=== PATIENT | female | born 1960 | race African-American/Black ===

== ENCOUNTER 2020-05-22 10:00 | Outpatient (RCR) | payer MEDICAID, SELFPAY ==
[2020-04-19 10:01] VITALS: BP 141/66; PULSE 72
== END 2020-07-11 14:54 | disposition other institution (70) ==
LOC: HO.PT 10:00
PROVIDERS: PCP Internal Medicine; Visit Provider Internal Medicine
DX: R42 Dizziness and giddiness (principal)
CPT/HCPCS: 95992; 97162; 97530

== ENCOUNTER 2021-02-05 10:57 | Outpatient (REF) | payer MEDICAID, SELFPAY ==
--- NOTE | ~2021-02-05 | MM_ITS ---
EXAMINATION: MM SCREENING DIGITAL BREAST TOMOSYNTHESIS, BILATERAL CLINICAL INFORMATION: Screening. Asymptomatic. The lifetime risk of breast cancer based on the Tyrer-Cuzick Model is 3%. COMPARISON: Mammography: 06/22/2018, 03/11/2017 TECHNIQUE: Digital breast tomosynthesis is performed in both the craniocaudal and mediolateral oblique views along with computer-aided detection (CAD). Synthesized 2D images are generated from the tomosynthesis. Additional right CC view is provided. FINDINGS: There are scattered areas of fibroglandular density (ACR BI-RADS breast composition Category b). There are no significant masses, abnormal calcifications, or other abnormalities. Parenchymal pattern is similar to prior studies. Minor fibronodular pattern and anterior left breast is stable. There are bilateral vascular and some scattered punctate calcifications again seen. The axilla and skin contours are unremarkable. MM/MM tomosynthesis screening BI IMPRESSION: No mammographic evidence of malignancy. ASSESSMENT: BI-RADS 2: Benign RECOMMENDATION: Routine annual mammography screening. This patient's information was entered into a reminder system with a target due date for their next mammogram.
== END 2021-02-05 10:58 | disposition home or self-care (01) ==
LOC: HO.MAMMO 10:57
PROVIDERS: PCP Internal Medicine; Visit Provider Internal Medicine
DX: Z12.31 Encounter for screening mammogram for malignant neoplasm of breast (principal)
CPT/HCPCS: 77063; 77067

== ENCOUNTER 2022-06-19 09:00 | Outpatient (REF) | payer MEDICAID, SELFPAY ==
--- NOTE | ~2022-06-19 | MM_ITS ---
EXAMINATION: MM SCREENING DIGITAL BREAST TOMOSYNTHESIS, BILATERAL CLINICAL INFORMATION: Screening. Asymptomatic. The lifetime risk of breast cancer based on the Tyrer-Cuzick Model is 4%. COMPARISON: Mammography: 02/05/2021, 06/22/2018, 03/11/2017 TECHNIQUE: Digital breast tomosynthesis is performed in both the craniocaudal and mediolateral oblique views along with computer-aided detection (CAD). Synthesized 2D images are generated from the tomosynthesis. Additional right exaggerated CC view is provided. FINDINGS: There are scattered areas of fibroglandular density (ACR BI-RADS breast composition Category b). There are no significant masses, abnormal calcifications, or other abnormalities. No developing density or architectural abnormality. Axillary nodes are stable. There are no significant changes. MM/MM tomosynthesis screening BI IMPRESSION: No mammographic evidence of malignancy. ASSESSMENT: BI-RADS 2: Benign RECOMMENDATION: Routine annual mammography screening. This patient's information was entered into a reminder system with a target due date for their next mammogram.
== END 2022-06-19 09:01 | disposition home or self-care (01) ==
LOC: HO.MAMMO 09:00
PROVIDERS: PCP Internal Medicine; Visit Provider Internal Medicine
DX: Z12.31 Encounter for screening mammogram for malignant neoplasm of breast (principal)
CPT/HCPCS: 77063; 77067

== ENCOUNTER → 2022-09-26 12:28 | Outpatient (BNVA) | payer MEDICAID, SELFPAY | PROVIDERS: PCP Internal Medicine; Visit Provider Physician Assistant | DX: Z12.11 Encounter for screening for malignant neoplasm of colon (principal) | CPT/HCPCS: 99202 ==

== ENCOUNTER 2023-09-02 10:46 | Outpatient (REF) | payer OTHER, SELFPAY ==
--- NOTE | ~2023-09-02 | MM_ITS ---
EXAMINATION: BONE DENSITOMETRY CLINICAL INDICATION: Postmenopausal, risk of osteoporosis. COMPARISON: This is the patient's baseline examination. TECHNIQUE: Using a Featherlight DXA System (software version: 13.1) manufactured by [employer], dual-energy x-ray absorptiometry was performed of the lumbar spine and left hip. The images are of good technical quality. Summary results are attached. FINDINGS: LEFT FEMUR, NECK: BMD 0.939 g/cm2, Z-score -0.9, T-score -0.7, normal. LEFT FEMUR, TOTAL: BMD 1.128 g/cm2, Z-score 0.4, T-score 1.0, normal. AP SPINE L1-L2 (excluding L3 and L4): The data of L1-L4 has been changed to exclude the L3 and L4 vertebral bodies, because degenerative sclerosis at these levels may cause overestimation of lumbar spine density. BMD 1.490 g/cm2, Z-score 2.5, T-score 2.7, normal. IDENTIFIED RISK FACTORS: Early menopause, secondary osteoporosis, hysterectomy, height loss. HISTORY OF FRACTURE: None listed. MEDICATIONS: Calcium. MM/XR DEXA axial skeleton IMPRESSION: 1. DIAGNOSIS: Normal bone density based on the lowest T-score value of -0.7 in the femoral neck applying World Health Organization criteria. 2. 10-YEAR FRACTURE RISK PREDICTION, FRAX: According to the guidelines, FRAX calculation should only be performed on patients in the osteopenia bone density category. Therefore, FRAX was not performed on this patient. 3. Treatment Recommendations: NOF guidelines recommend consideration for treatment in postmenopausal women and men age 50 and older presenting with the following: -A hip or vertebral (clinical or morphometric) fracture. -T-score less than or equal to -2.5 at the femoral neck or spine after appropriate evaluation to exclude secondary causes. -Low bone mass at the hip or spine and a 10-year fracture probability by FRAX of greater than or equal to 3% for hip fracture or greater than or equal to 20% for major osteoporotic fracture based on the [place] adapted WHO algorithm. 4. Other Recommendations: All treatment decisions require clinical judgment and consideration of individual patient factors, including patient preferences, comorbidities, previous drug use, risk factors not captured in the FRAX model (e.g. frailty, falls, vitamin D deficiency, increased bone turnover, interval significant decline in bone density) and possible under or overestimation of fracture risk by FRAX. FUTURE SCAN RECOMMENDATION: People with diagnosed cases of osteoporosis or at high risk for fracture should have regular bone mineral density tests. For patients eligible for Medicare, routine testing is allowed once every 2 years. The testing frequency can be increased to one year for patients who have rapidly progressing disease, those who are receiving or discontinuing medical therapy to restore bone mass, or have additional risk factors.
== END 2023-09-02 10:47 | disposition home or self-care (01) ==
LOC: HO.MAMMO 10:46
PROVIDERS: PCP Internal Medicine; Visit Provider Internal Medicine
DX: Z13.820 Encounter for screening for osteoporosis (principal); Z78.0 Asymptomatic menopausal state
CPT/HCPCS: 77080

== ENCOUNTER 2023-09-12 13:08 | Outpatient (REF) | payer OTHER, SELFPAY ==
--- NOTE | ~2023-09-12 | XR_ITS ---
EXAMINATION: XR SHOULDER, LEFT CLINICAL INFORMATION: Left shoulder pain for one year. COMPARISON: None available. TECHNIQUE: AP external rotation, Grashey, scapular Y, and axillary views of the left shoulder. FINDINGS: Acromioclavicular joint space narrowing. Glenohumeral joint space narrowing, sclerosis and subchondral cysts. Spurring left humeral head. No fracture or dislocation. Visualized ribs and lung are unremarkable. XR/XR shoulder LT min 2V IMPRESSION: Glenohumeral and acromioclavicular degenerative type changes humeral head spurring.
== END 2023-09-12 13:09 | disposition home or self-care (01) ==
LOC: HO.HHCX 13:08
PROVIDERS: Visit Provider Student in an Organized Health Care Education/Training Program
DX: M75.02 Adhesive capsulitis of left shoulder (principal)
CPT/HCPCS: 73030

== ENCOUNTER 2023-12-16 12:07 | Outpatient (REF) | payer OTHER, SELFPAY ==
[2023-12-16 14:05] LABS: Alanine Aminotransferase 16 U/L (0-31); Albumin Level 4.3 g/dL (3.5-5.0); Alkaline Phosphatase 73 U/L (39-117); Anion Gap 12 (12-20); Aspartate Amino Transferase 11 U/L (5-31); Bilirubin Total 0.8 mg/dL (0.0-1.0); Blood Urea Nitrogen 14 mg/dL (9-16); Calcium 9.7 mg/dL (8.4-10.2); Carbon Dioxide 30 mmol/L (22-29); Chloride 105 mmol/L (96-108); Cholesterol 121 mg/dL (<200); Estimated Glomerular Filt Rate > 60; Glucose Random 85 mg/dL (60-115); HDL Cholesterol 42 mg/dL (>40); LDL Cholesterol Calculated 69 mg/dL (<100); Potassium 3.9 mmol/L (3.3-5.1); Sodium 143 mmol/L (135-145); Total Protein 7.4 g/dL (6.5-8.0); Triglycerides 50 mg/dL (<150)
[2023-12-16 14:26] LABS: Creatinine Urine 177.89 mg/dL
[2023-12-16 14:30] LABS: Reflex LDLD? No
== END 2023-12-16 12:08 | disposition home or self-care (01) ==
LOC: HO.HHCL 12:07
PROVIDERS: Visit Provider Internal Medicine
DX: I10 Essential (primary) hypertension (principal); E11.65 Type 2 diabetes mellitus with hyperglycemia
CPT/HCPCS: 36415; 80053; 80061; 82043; 82570

== ENCOUNTER 2024-02-17 10:49 | Outpatient (REF) | payer OTHER, SELFPAY ==
--- NOTE | ~2024-02-17 | MM_ITS ---
EXAMINATION: MM SCREENING DIGITAL BREAST TOMOSYNTHESIS, BILATERAL CLINICAL INFORMATION: Screening. Asymptomatic. COMPARISON: Mammography: This study is compared with prior exams dating back to 2017. TECHNIQUE: Digital breast tomosynthesis is performed in both the craniocaudal and mediolateral oblique views along with computer-aided detection (CAD). Synthesized 2D images are generated from the tomosynthesis. FINDINGS: There are scattered areas of fibroglandular density (ACR BI-RADS breast composition Category b). There are no significant masses, abnormal calcifications, or other abnormalities. MM/MM tomosynthesis screening BI IMPRESSION: No mammographic evidence of malignancy. ASSESSMENT: BI-RADS BI-RADS 1 - Negative RECOMMENDATION: Routine annual mammography screening. 1 year F/U This examination should not preclude the clinical evaluation of a suspicious palpable abnormality. This patient's information was entered into a reminder system with a target due date for their next mammogram. Electronically signed by: Alejandra Chapa MD 03/11/2024 03:51 PM EDT
== END 2024-02-17 10:50 | disposition home or self-care (01) ==
LOC: HO.MAMMO 10:49
PROVIDERS: PCP Internal Medicine; Visit Provider Internal Medicine
DX: Z12.31 Encounter for screening mammogram for malignant neoplasm of breast (principal)
CPT/HCPCS: 77063; 77067

== ENCOUNTER → 2024-02-17 11:30 | Outpatient (BNV) | payer OTHER, SELFPAY | PROVIDERS: PCP Internal Medicine; Visit Provider Radiology Diagnostic Radiology | DX: Z12.31 Encounter for screening mammogram for malignant neoplasm of breast (principal) | CPT/HCPCS: 77063; 77067 ==

== ENCOUNTER 2024-09-22 10:16 | Outpatient (AMB) | payer OTHER, SELFPAY ==
--- NOTE | 2024-09-22 10:39 | MHC.OFFVIS ---
Vital Signs 09/22/24 10:40 Height 5 ft 2 in Weight 243 lb BMI 44.4 Intake Visit Reasons: Left shoulder pain and stiffness Intake Note: Bella is a 64 year old female who presents as a new patient for evaluation of left shoulder pain and stiffness. The patient describes her pain in nature. She has had 3 cortisone injections given into her left shoulder over the last year. She got temporary relief from those injections. The patient states that she was told that she has a ?frozen shoulder?. She has done physical therapy which aggravated her pain. She also has intermittent discomfort in her right shoulder. She states that her right shoulder discomfort is tolerable to her. She has tried Tylenol and anti-inflammatory medicines relief. Allergies egg [EGG] Allergy (Unknown, Unverified 09/22/24 10:40) NAUSEA & VOMITING eggs Allergy (Unknown, Uncoded 09/22/24 10:40) Unknown Medication List - Last Reconciled 09/22/24 by Leonard Monroe MD albuterol sulfate 90 mcg/actuation (ProAir HFA) 2 puffs inhalation Q6H PRN bisacodyl (Dulcolax (bisacodyl)) 10 mg (2 x 5 mg) PO ONCE 1 day divalproex (Depakote) 250 mg PO BID docusate sodium (Colace) 100 mg PO DAILY hydrochlorothiazide 25 mg PO DAILY lisinopril 30 mg PO DAILY meclizine 25 mg PO DAILY PRN meloxicam mg PO BID metformin 500 mg PO DAILY omeprazole 20 mg PO DAILY polyethylene glycol 3350 (Miralax) 238 grams PO ONCE PRN 1 day PFSH Social History Household Members: Family Alcohol intake: current Alcohol intake frequency: a few times a week Patient Tobacco Use Status: Never used Tobacco Physical Exam Vital Signs: BMI result Body Mass Index 44.4 Const Other: Well-nourished well-developed very friendly female awake alert and oriented x3 in no acute distress Extrem Other: Left shoulder examination shows decreased range of motion when compared to her right shoulder, 4+ out of 5 strength with supraspinatus testing, positive impingement signs, tenderness over her acromioclavicular joint, no instability Results Reviewed Results Reviewed: X-rays of the patient's left shoulder show severe acromioclavicular joint narrowing, a type 2 acromion, moderate glenohumeral joint degenerative changes Assessment & Plan Assessment & Plan (1) Impingement syndrome of left shoulder: Code(s): M75.42 - Impingement syndrome of left shoulder Category: Medical Plan Ms. Vance presents with progressively worsening left shoulder stiffness due to impingement syndrome, acromioclavicular joint arthritis, glenohumeral joint arthritis and adhesive capsulitis. I had a lengthy discussion with the patient regarding the treatment options. She wishes to hold off on total shoulder replacement surgery for as long as possible. The risks and benefits of left shoulder arthroscopic surgery were discussed at length with the patient. The patient wishes to proceed with surgery. Surgery will most likely involve left shoulder diagnostic arthroscopy with distal clavicle excision, acromioplasty, capsular release and manipulation under anesthesia. The patient does understand that she may not get 100% relief of her symptoms depending on the severity of her glenohumeral joint degenerative changes. The patient will be scheduled for next available date. She will follow-up as instructed. Feel free to call me at any time should questions regarding her orthopedic management arise. Thank you very much for asking me to see this very friendly patient. I spent 22 minutes in reviewing the patient's records and imaging studies, seeing the patient and documenting in the medical record. Coding Level of Care Code New Pt Level 3 (66323) Complex EM visit Add On G2211 Diagnoses Impingement syndrome of left shoulder M75.42
[2024-09-22 10:40] VITALS: BMI 44.4
== END 2024-09-22 11:14 | disposition home or self-care (01) ==
LOC: HO.HOS 10:17
PROVIDERS: PCP Internal Medicine; Visit Provider Orthopaedic Surgery
DX: M75.42 Impingement syndrome of left shoulder (principal)
CPT/HCPCS: 99204; G2211

== ENCOUNTER → 2024-09-22 10:16 | Outpatient (BNVA) | payer OTHER, SELFPAY | PROVIDERS: PCP Internal Medicine; Visit Provider Orthopaedic Surgery | DX: M75.42 Impingement syndrome of left shoulder (principal) | CPT/HCPCS: 99202 ==

== ENCOUNTER 2024-10-07 10:18 | Outpatient (REF) | payer OTHER, SELFPAY ==
--- OUTSIDE RECORDS SUMMARY | 2024-10-07 11:11 | XMS_ITS | Encounter Summary ---
Author Organization [email or web address] Address [address] [place] [address] [address] [place] [address] Care Team Providers Care Postbed Stitcher Name Role Phone Esme Flores MD Primary Care Provider + Encounter Details Date Type Department Care Team (Latest Contact Info) Description 06/15/2019 Abstract [facility] Dental, Provider, DDS Social History Tobacco Use Types Packs/Day Years Used Date Smoking Tobacco: Never Assessed Comments Unknown Sex and Gender Information Value Date Recorded Sex Assigned at Female 05/06/2022 10:15 AM EDT Legal Sex Female 10:15 AM EDT Gender Identity Female 05/06/2022 10:15 AM EDT Sexual Orientation Choose not to disclose 2021 10:15 AM EDT documented as of this encounter Plan of Treatment Upcoming Encounters Date Type Department Care Team (Late st Contact Info) Description 12/22/2024 10:00 AM EDT Office Visit [facility] [address] [place] [address] Saw, Milagros, OD [address] [place] [address] documented as of this encounter Visit Diagnoses Not on filedocumented in this encounter Care Teams Postbed Stitcher Relationship Specialty Start Date End Date Esme Flores MD [address] [place] [address] PCP - General Family Medicine 02/19/17 documented as of this encounter
--- OUTSIDE RECORDS SUMMARY | 2024-10-07 11:11 | XMS_ITS | Encounter Summary ---
Author Organization [employer] Address [address] [place] [address] Care Team Providers Care Hourly Sales Staff Name Role Phone Esme Flores MD Primary Care Provider + Reason for Visit * Reason Onset Date Comments Chart prep 10/05/2024 Encounter Details Date Type Department Care Team ([facility] st Contact Info) Description 10/05/2024 Telephone [facility] [address] [place] [address] Esme Flores MD [address] [place] [address] Chart prep Social History Tobacco Use Types Packs/Day Years Used Date Smoking Tobacco: Never Passive Smoke Exposure: Never Smokeless Tobacco: Never Alcohol Use Standard Drinks/Week Comments Not Currently 0 (1 standard drink = 0.6 oz pur e alcohol) Depression Answer Date Recorded Patient Health Questionnaire-9 Score 12 09/08/2024 Patient Health Questionnaire-9 Score 12 09/08/2024 Last PHQ-9: Questionnaire Data Not on file 0 09/08/2024 Housing Stability Answer Date Recorded What is your housing situation today? I have judy parker 04/21/[address] you li ve. Do you have problems with any of the following? None of the above 04/21/2023 Food Insecurity Answer Date Recorded Within the past 12 months, y ou worried that your food would run out before you got money to buy more: Never True 04/21/2023 Within the past 12 months,th e food you bought just didn't last and you didn't have enough money to get more: Never True Transportation Answer Date Recorded In the past 12 months, has l ack of transportation kept you from medical appts, meetings, work or from getting things needed for daily living? No 04/21/2023 Utilities Answer Date Recorded In the past 12 months, has t he electric, gas, oil or water company threatened to shut off services in your home? No 04/21/2023 Depression Answer Date Recorded Patient Health Questionnaire-2 Score 4 09/08/2024 Internet Access Answer Date Recorded Internet Access Q1 No 09/08/2024 Internet Access Q2 I do not want or need it 11/2024 Comments No Sex and Gender Information Value Date Recorded Sex Assigned at Female 05/06/2022 10:15 AM EDT Legal Sex Female 10:15 AM EDT Gender Identity Female 05/06/2022 10:15 AM EDT Sexual Orientation Choose not to disclose 2021 10:15 AM EDT documented as of this encounter Miscellaneous Notes * Telephone Encounter - Rosa Isela Ramirez MA - 10/05/2024 2:17 PM EDT Chart Prep Labs: not done Images: done Vaccines due: yes Referrals: complete Screenings: colonoscopy Overdue care gaps: Glucose documented in this encounter Plan of Treatment Upcoming Encounters Date Type Department Care Team (Late st Contact Info) Description 12/22/2024 10:00 AM EDT Office Visit [facility] [address] [place] [address] Saw, Milagros, OD [address] [place] [address] documented as of this encounter Visit Diagnoses Not on filedocumented in this encounter Additional Health Concerns Assessment Noted Time PHQ-9 Depression Total Score: 12 025 10:31 AM EST documented as of this encounter Care Teams Hourly Sales Staff Relationship Specialty Start Date End Date Esme Flores MD [address] [place] [address] PCP - General Family Medicine 02/19/17 documented as of this encounter
--- OUTSIDE RECORDS SUMMARY | 2024-10-07 11:11 | XMS_ITS | Encounter Summary ---
Author Organization [employer] Address [address] [place] [address] Care Team Providers Care Loan Closer Name Role Phone Esme Flores MD Primary Care Provider + Encounter Details Date Type Department Care Team (Latest Contact Info) Description 10/07/2024 Travel Social History Tobacco Use Types Packs/Day Years [...] Description 12/22/2024 10:00 AM EDT Office Visit [facility] [address] [place], [place] [id number] Saw, Megan, OD [address] [place] [address] documented as of this encounter Visit Diagnoses Not on filedocumented in this encounter Additional Health Concerns Assessment Noted Time PHQ-9 Depression Total Score: 12 025 10:31 AM EST documented as of this encounter Care Teams Loan Closer Relationship Specialty Start Date End Date Esme Flores MD [address] [place] [address] PCP - General Family Medicine 02/19/17 documented as of this encounter
--- OUTSIDE RECORDS SUMMARY | 2024-10-07 11:11 | XMS_ITS | Encounter Summary ---
Author Organization [employer] Address [address] [place] [address] [address] [place] [address] Care Team Providers Care Speaker Mounter Name Role Phone Esme Flores MD Primary Care Provider + Encounter Details Date Type Department Care Team (Latest Contact Info) Description 03/13/2021 Abstract [facility] Dental, Provider, DDS Social History Tobacco [...] Description 12/22/2024 10:00 AM EDT Office Visit [facility] [address] [place] [address] Saw, Milagros, OD [address] [place] [address] documented as of this encounter Visit Diagnoses Not on filedocumented in this encounter Care Teams Speaker Mounter Relationship Specialty Start Date End Date Esme Flores MD [address] [place] [address] PCP - General Family Medicine 02/19/17 documented as of this encounter
--- OUTSIDE RECORDS SUMMARY | 2024-10-07 11:11 | XMS_ITS | Encounter Summary ---
Author Organization [facility] [employer] [facility] Address [address] [place] [address] [address] [place] [address] Care Team Providers Care Kicking Machine Operator Name Role Phone Esme Flores MD Primary Care Provider + Encounter Details Date Type Department Care Team (Late st Contact Info) Description 06/20/[address] [facility] [address] [place] [address] Jenny Anderson LPN Social History Tobacco Use Types Packs/Day Years [...] Description 12/22/2024 10:00 AM EDT Office Visit [facility] [address] [place] [address] Saw, Milagros, OD [address] [place] [address] documented as of this encounter Visit Diagnoses Not on filedocumented in this encounter Care Teams Kicking Machine Operator Relationship Specialty Start Date End Date Esme Flores MD [address] [place] [address] PCP - General Family Medicine 02/19/17 documented as of this encounter
--- OUTSIDE RECORDS SUMMARY | 2024-10-07 11:11 | XMS_ITS | Encounter Summary ---
Author Organization [employer] Address [address] [place] [address] Care Team Providers Care Mapping Editor Name Role Phone Esme Flores MD Primary Care Provider + Reason for Visit * Reason Comments Diabetic Eye Exam Encounter Details Date Type Department Care Team ([facility] st Contact Info) Description 10/06/2024 10:30 AM EDT Office Visit [facility] [address] [place] [address] SawMilagros, OD [address] [place] [address] Diabetes type 2, no ocular involvement (CMS/HCC) (Primary Dx); Combined forms of age-related cataract of both eyes; PVD (posterior vitreous detachment), both eyes; Presbyopia of both eyes Social History Tobacco Use Types Packs/Day Years [...] Description 12/22/2024 10:00 AM EDT Office Visit [facility] [address] [place], [place] [id number] Milagros [place], OD [address] [place] [address] documented as of this encounter Visit Diagnoses Diagnosis Diabetes type 2, no ocular involvement ([facility])- Primary Combined forms of age-related cataract of both eyes PVD (posterior vitreous detachment), both eyes Presbyopia of both eyes documented in this encounter Additional Health Concerns Assessment Noted Time PHQ-9 Depression Total Score: 12 025 10:31 AM EST documented as of this encounter Care Teams Mapping Editor Relationship Specialty Start Date End Date Esme Flores MD [address] [place] [address] PCP - General Family Medicine 02/19/17 documented as of this encounter
--- OUTSIDE RECORDS SUMMARY | 2024-10-07 11:11 | XMS_ITS | Encounter Summary ---
Author Organization [employer] Address [address] [place] [address] Care Team Providers Care Soft Top Installer Name Role Phone Esme Flores MD Primary Care Provider + Encounter Details Date Type Department Care Team (Latest Contact Info) Description 10/06/2024 Travel Social History Tobacco Use Types Packs/Day [...] AM EDT Office Visit [facility] [address] [place], [place] [id number] Saw, Megan, OD [address] [place] [address] documented as of this encounter Visit Diagnoses Not on filedocumented in this encounter Additional Health Concerns Assessment Noted Time PHQ-9 Depression Total Score: 12 025 10:31 AM EST documented as of this encounter Care Teams Soft Top Installer Relationship Specialty Start Date End Date Esme Flores MD [address] [place] [address] PCP - General Family Medicine 02/19/17 documented as of this encounter
--- OUTSIDE RECORDS SUMMARY | 2024-10-07 11:11 | XMS_ITS | Data Portability ---
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 Plan of Treatment Reminders Order Date Submit Date Provider Last Modified By Organization Details Last Modified Time Details Appointments None recorded. Lab rapid SARS CoV 2 Ag, QL [place], respiratory specimen 2024 025 [facility], [address] [place] [address], [phone], 5 15:54:01 rapid flu (A+B) 2024 025 [facility], [address] [place] [address], [phone], 5 15:54:02 Referral None recorded. Procedures None recorded. Surgeries None recorded. Imaging None recorded. Medication Orders prednisone 20 mg tablet [id number], [address] [place], [id number], 5 12:14:34 azithromyci n 500 mg tablet 2024 025 [id number], [address] [place], [phone], 5 12:14:34 azithromyci n 250 mg tablet 2024 025 [facility], [address] [place], [place], [phone], 5 11:53:44 prednisone 20 mg tablet 2024 025 [facility], [address] [place] [address], [place], [place], [phone], 11:53:44 Patient TargetsNo targets recorded. Patient InstructionsNo instructions recorded. Reason for Referral None Reported. Results Created Date Observation Date Name Description Value Unit Range Abnormal Flag Note LastModifiedBy Organization Detail LastModifiedTime Result Notes None recorded. Medical Equipment None Reported. Allergies Allergen ID Allergen Name Allergen Category Reaction Reaction Severity Criticality Documentation Date Start Date Code Code System Note Provider Name and Address Organization Details Recorded Time 54769 egg extract food,medi cation Not available Not available Not available 08/08/2024 04422 15 RxNorm Not Available [facility] - production 09:43:01 Medications Name Sig Start Date Stop Date Status Note LastModified by Organization Details LastModified Time medbox status USE DIRECTED active Not Available Not Available No t Available cyclobenzapr ine 10 mg tablet TAKE 1 TABLET BY MOUTH AT BEDTIME active Not Available Not Available No t Available Driminate 50 mg tablet TAKE 1 TABLET BY MOUTH EVERY TWELVE HOURS NEEDED active Not Available Not Available No t Available divalproex 250 mg tablet,delay ed release TAKE 1 TABLET BY MOUTH TWICE DAILY TWICE DAILY IN THE MORNING AND IN THE EVENING active Not Available Not Available No t Available trazodone 50 mg tablet TAKE 1 TABLET BY MOUTH AT BEDTIME NEEDED for SLEEP active Not Available Not Available No t Available cetirizine 10 mg tablet TAKE 1 TABLET BY MOUTH EVERY DAY NEEDED active Not Available Not Available No t Available azithromycin 250 mg tablet TAKE 1 TABLET BY MOUTH EVERY DAY FOR 4 DAYS active Not Available Not Available No t Available ibuprofen 800 mg tablet TAKE 1 TABLET BY MOUTH THREE TIMES DAILY WITH FOOD NEEDED FOR PAIN active Not Available Not Available No t Available prednisone 20 mg tablet TAKE 2 TABLETS BY MOUTH EVERY DAY FOR 4 DAYS active Not Available Not Available No t Available aspirin 81 mg tablet,delay ed release TAKE 1 TABLET BY MOUTH EVERY MORNING active Not Available Not Available No t Available acetaminophe n ER 650 mg tablet,exten ded release TAKE 2 TABLETS BY MOUTH EVERY 8 HOURS NEEDED. SWALLOW WHOLE WITH WATER. DO NOT BREAK, CRUSH, DISSOLVE OR CHEW active Not Available Not Available No t Available meloxicam 7.5 mg tablet TAKE 1 TABLET BY MOUTH TWICE DAILY active Not Available Not Available No t Available Deep Sea Nasal 0.65 % spray aerosol USE 1 SPRAY IN EACH NOSTRIL NEEDED FOR NASAL CONGESTION active Not Available Not Available N ot Available simvastatin 20 mg tablet TAKE 1 TABLET BY MOUTH EVERY EVENING active Not Available Not Available No t Available lisinopril 30 mg tablet TAKE 1 TABLET BY MOUTH EVERY MORNING active Not Available Not Available No t Available docusate sodium 100 mg capsule TAKE 1 CAPSULE BY MOUTH TWICE DAILY NEEDED FOR CONSTIPATIO N active Not Available Not Available No t Available omeprazole 20 mg capsule,olivia yed release TAKE 1 CAPSULE BY MOUTH EVERY MORNING 30 TO 60 MINUTES BEFORE BREAKFAST active Not Available Not Available No t Available montelukast 10 mg tablet TAKE 1 TABLET BY MOUTH EVERY EVENING active Not Available Not Available No t Available bisacodyl 5 mg tablet,delay ed release TAKE 2 TABLETS BY MOUTH AT NOON THE DAY BEFORE PROCEDURE active Not Available Not Available No t Available hydrochlorot hiazide 25 mg tablet TAKE 1 TABLET BY MOUTH EVERY MORNING active Not Available Not Available No t Available polyethylene glycol 3350 17 gram/dose oral powder MIX WITH WATER AND DRINK DIRECTED THE DAY BEFORE PROCEDURE. active Not Available Not Available N ot Available lisinopril 40 mg tablet TAKE 1 TABLET BY MOUTH EVERY MORNING active Not Available Not Available No t Available fluticasone propionate 50 mcg/actuatio n nasal spray,suspen mathew INHALE 1 TO 2 SPRAYS IN EACH NOSTRIL ONCE DAILY IN THE MORNING FOR 14 DAYS. CLEAN DIRECTED. active Not Available Not Available No t Available metformin ER 500 mg tablet,exten ded release 24 hr TAKE 1 TABLET BY MOUTH EVERY EVENING WITH DINNER active Not Available Not Available Not Available naproxen 500 mg tablet TAKE 1 TABLET BY MOUTH TWICE DAILY IN THE MORNING AND IN THE EVENING WITH MEALS active Not Available Not Available N ot Available Ventolin HFA 90 mcg/actuatio n aerosol inhaler INHALE 2 PUFFS BY MOUTH EVERY 4 HOURS NEEDED FOR WHEEZING active Not Available Not Available No t Available Mucinex DM 30 mg-600 mg tablet,exten ded release 12 hr TAKE 1 TABLET BY MOUTH THREE TIMES DAILY active Not Available Not Available Not Available diclofenac 1 % topical gel APPLY 1 INCH TOPICALLY TO AFFECTED AREA(S) TWICE DAILY IN THE MORNING AND AT BEDTIME NEEDED FOR PAIN active Not Available Not Available No t Available Mucus Relief ER 600 mg tablet, extended release TAKE 1 TABLET BY MOUTH TWICE DAILY FOR 7 DAYS active Not Available Not Available No t Available Cassie-Tussin DM 10 mg-100 mg/5 mL oral liquid TAKE 5 ML BY MOUTH EVERY TWELVE HOURS FOR 10 DAYS active Not Available Not Available No t Available Vitals Date Recorded Body height Oxygen saturation Oxygen saturation in Arterial blood by Pulse oximetry Heart rate Respiratory rate Body weight Systolic blood pressure Diastolic blood pressure Provider Name and Address Organization Details Last Updated DateTime 157.48 cm 97 % 97 % 82 /min 16 /min 180334. 08 g 119 mm[Hg] 80 mm[Hg] Not Available [employer] [facility] [employer] 12:49:58 Date Recorded Body temperature Heart rate Oxygen saturation Oxygen saturation in Arterial blood by Pulse oximetry Respiratory rate Systolic blood pressure Diastolic blood pressure Provider Name and Address Organization Details Last Updated DateTime 98.2 [degF] 92 /min 100 % 100 % 16 /min 121 mm[Hg] 61 mm[Hg] Not Available [employer] 12:02:08 Social History None recorded. Functional Status None recorded. Mental Status None recorded. Family History Nothing Reported. Medical History No medical history recorded. Gynecological HistoryNo gynecological history recorded. Obstetrics History GPAL:G 0 P 0 0 0 0 Past Encounters Encounter ID Performer Location Encounter Start Date Encounter Closed Date Diagnosis/Indication Diagnosis SNOMED-CT Code Diagnosis ICD10 Code Diagnosis Note [id number] Gerald Jurado MD Main - [address] [phone] 09/08/2023 12:49:56 09/08/2023 18:54:15 Pain of left shoulder joint 2403557010 9711010 M25.512 This 63-year-ol d female has a history of chronic left shoulder pain which has flared up today with no trauma. I suspect she has osteoarthr itis of the shoulder. I ordered Toradol 30 mg IM and Tylenol 500 mg tid prn pain. She will follow-up with her PCP. The patient agreed with this plan. [id number] Luis Alberto Magdaleno MD Main - [address] [phone] 08/08/2024 12:02:06 08/10/2024 16:59:20 Exacerbation of moderate persistent asthma [id number] J45.41 Patient w/symptoms of asthma exacerbati on. COVID negative. Flu negative. Satting well but with recurrent wheezing. States responds well to Z-pack and Prednisone . Will rx both. Discussed red flag signs for which to seek higher level of care. Health Concerns Section Related Observation LastModified by Organization Detai ls LastModified Time None Recorded Concern Status LastModified by Organization Details LastModified Time None Recorded Advance Directives Directive None Recorded Payers Encounter Date Sequence Insurance Name Policy Number Policy Dinh Covered Member ID Dinh Member ID Guarantor Name 09/08/2023 1 [facility] - DOS ON OR AFTER 2022 - DUAL ELIGIBLE - HALF-WAY OPTIONS AND ONE CARE (MEDICARE REPLACEMENT/ADV ANTAGE - HMO) Bella Vance [id number] Bella Vance 08/08/2024 1 [facility] - DOS ON OR AFTER 2022 - DUAL ELIGIBLE - HALF-WAY OPTIONS AND ONE CARE (MEDICARE REPLACEMENT/ADV ANTAGE - HMO) Bella Vance [id number] Bella Vance Notes Date Note Type Note Provider Name and Address Organization Details Recorded Time 09/08/2023 text/html HPI: History of shoulder arthritis. Patient with worsening left shoulder pain without recent injury. Limited ROM. Naproxen not effective. Feels whole arm is in spasm. .................... .................... .................... .................... .................... .................... .................... . [facility] Nurse Triage Notes (Kaley Griffiths): Comments: [facility] RN DID NOT NEED FURTHER INFO Gerald Jurado MD [address] [facility],[address], [place], [address], [employer] 09/08/2023 12:53:14 08/08/2024 text/html [facility] Nurse Triage Notes (Jarod Ramsey NORBERTO): Reason For Request: Patient is reporting flu like symptoms and would like to be checked out. Patient Reports: Lower extremity swelling; History of asthma, increased use of inhaler; COPD; Sputum increase ; Cough Denies: Increased work of breathing/labored ? with or without fever Unable to speak in full sentences without distress Discoloration of skin -cyanosis Needs to sleep sitting up, can? t catch breath Shortness of breath in setting of confusion Shortness of breath with exertion Pain with inspiration Chief Complaints: Common cold symptoms PMH: Hypertension, COPD/Asthma PMH Reviewed at 08/08/2024:43 Allergies Reviewed at 08/08/2024:43 Comments: Handle Lathe Operator verified the Pt.'s name//address and phone number. Education provided on the response time and the Pt. was advised to monitor reported s/s and seek emergency treatment if needed. Pt reports feeling unwell with a cold/cough/congestio n - Subjective fever - Cough is dry - Denies SOB - Wheezing reported - Decreased sleep - Using prescribed inhaler and over the counter cold medication - S/S started on . Wellness check requested Halal Butcher Organization Information for Jefe Martinez Business Legal Name: [facility] Address: [address] [place] [address], [place] [address], Fitness Attendant: Jhon Brock MD CLIA No.: [id number] Halal Butcher POC Test Results from [facility] Rapid COVID antigen (11:58:20) COVID: - Rapid influenza antigen (11:58:20) Flu: - .................... .................... .................... .................... .................... .................... .................... . Halal Butcher Note From Jefe Martinez: This 64-year-old female with a history including but not limited to HTN, asthma requested a visit today to address four days of dry cough, mild PABON and wheezing at nighttime. Patient states that usually this time of year comes down with an upper respiratory infection that requires prednisone which works well and resolves the symptoms. Patient denies any chest pain, shortness of breath at rest, fevers, nausea, vomiting, diarrhea. Patient presents awake and alert, in no acute distress and speaking full sentences. Her vital signs are reasonably stable and she is afebrile. Nonfocal neurological exam. Normal gait. Normal oropharynx exam. Lungs are clear throughout auscultation. Abdomen is soft, nontender, nondistended. No lower extremity edema. Rapid COVID and flu testing are both negative. I treated this patient with azithromycin 500 mg and prednisone 40 mg. I provided education on additional OTC treatments and supportive care. I recommend she follows up with her primary care physician this week and present to the emergency department for any new or worsening severe symptoms such as chest pain, severe shortness of breath, high fever, altered mental status. The patient was given the opportunity to ask questions and is agreeable to this plan. .................... .................... .................... .................... .................... .................... .................... . [facility] Consulted: Jacob Magdaleno .................... .................... .................... .................... .................... .................... .................... . Disposition: Fulfilled Luis Alberto Magdaleno MD [address] [place] [address],[address], [place], [phone], ANDRZEJ PEREZ 08/08/2024 14:51:24 OBGyn Episode No OBEpisode recorded.
--- OUTSIDE RECORDS SUMMARY | 2024-10-07 11:11 | XMS_ITS | Clinical Summary ---
Author Organization [employer] Address [address] [facility] [address] [place] [address] Care Team Providers Care Rivet Heater Name Role Phone Esme Flores MD Primary Care Provider + Allergies No known active allergies Medications glucose blood (FREESTYLE LITE) test strip apply 1 by to skin route once daily Active zoster vaccine, live, (Zostavax) 22444 UNT/0.65ML injection inject 0.65 milliliter by subcutaneous route once 020 Active acetaminophen (Arthritis Pain Relief) 650 MG ER tabletIndications :Pain TAKE 2 TABLETS BY MOUTH EVERY 8 HOURS NEEDED. SWALLOW WHOLE WITH WATER. DO NOT BREAK, CRUSH, DISSOLVE OR CHEW 16 tablet 023 Active polyvinyl alcohol (Liquifilm Tears) 1.4 % ophthalmic solutionIndicatio ns:Dry eye use 1gtt each eye q6h prn dry eey/itchy eye 30 mL 11 023 Active fluticasone (Flonase) 50 MCG/ACT nasal spray Administer 1-2 sprays into each nostril in the morning for 14 days. Shake gently. Before first use, prime pump. After use, clean tip and replace cap. 16 g 023 Active albuterol 108 (90 Base) MCG/ACT inhalerIndication s:COPD with acute exacerbation (CMS/HCC) Inhale 2 puffs every 4 (four) hours if needed for wheezing. 18 g 3 024 Active naproxen (Naprosyn) 500 MG tabletIndications :Primary osteoarthritis of both knees TAKE 1 TABLET BY MOUTH TWICE DAILY IN THE MORNING AND IN THE EVENING WITH MEALS 120 tablet 1 024 Active sodium chloride ([place] Nasal [place]) 0.65 % nasal sprayIndications: Viral upper respiratory tract infection Administer 1 spray into each nostril if needed for congestion. 30 mL 12 024 2024 Active docusate sodium (Colace) 100 MG capsuleIndication s:Gastroesophagea l reflux disease, unspecified whether esophagitis present TAKE 1 CAPSULE BY MOUTH TWICE DAILY NEEDED CONSTIPATION 180 capsule 3 024 Active lisinopril 40 MG tabletIndications :Primary hypertension TAKE 1 TABLET BY MOUTH EVERY MORNING 90 tablet 3 024 Active omeprazole (PriLOSEC) [address] capsuleIndication s:Gastroesophagea l reflux disease, unspecified whether esophagitis present TAKE 1 CAPSULE BY MOUTH EVERY MORNING 30-60 MINUTES BEFORE BREAKFAST 90 capsule 1 024 Active traZODone (Desyrel) 50 MG tabletIndications :Insomnia, unspecified TAKE 1 TABLET BY MOUTH AT BEDTIME NEEDED FOR SLEEP 30 tablet 5 024 Active divalproex (Depakote) 250 MG EC tabletIndications :Polyneuropathy, unspecified TAKE 1 TABLET BY MOUTH TWICE DAILY IN THE MORNING AND IN THE EVENING 60 tablet 5 024 Active cetirizine (ZyrTEC) 10 MG tabletIndications :Chronic rhinitis TAKE 1 TABLET BY MOUTH EVERY DAY NEEDED 90 tablet 1 024 Active simvastatin (Zocor) 20 MG tablet TAKE 1 TABLET BY MOUTH EVERY EVENING 90 tablet 3 025 Active montelukast (Singulair) 10 MG tablet TAKE 1 TABLET BY MOUTH EVERY EVENING 90 tablet 3 025 Active Aspirin Low Dose 81 MG EC tabletIndications :Type 2 diabetes mellitus with diabetic polyneuropathy, with long-term current use of insulin ([facility]) TAKE 1 TABLET BY MOUTH EVERY MORNING 90 tablet 3 025 Active hydroCHLOROthiazi de (HYDRODiuril) 25 MG tablet TAKE 1 TABLET BY MOUTH EVERY MORNING 90 tablet 3 025 Active Driminate 50 MG tabletIndications :HTN (hypertension), benign TAKE 1 TABLET BY MOUTH EVERY TWELVE HOURS NEEDED 30 tablet 5 025 Active hydrocortisone 2.5 % cream Apply topically 2 times daily. 28 g 1 025 Active ammonium lactate (Amlactin) 12 % cream Apply topically if needed for dry skin. 385 g 025 2025 Active cyclobenzaprine (Flexeril) 10 MG tablet TAKE 1 TABLET BY MOUTH AT BEDTIME 30 tablet 5 025 Active cyclobenzaprine (Flexeril) 10 MG tablet TAKE 1 TABLET BY MOUTH AT BEDTIME 30 tablet 5 024 2024 Discontinued metFORMIN XR (Glucophage-XR) 500 MG 24 hr tablet TAKE 1 TABLET BY MOUTH EVERY EVENING WITH DINNER 90 tablet 3 025 2024 Discontinued(T herapy completed) Active Problems Problem Noted Date Diagnosed Date Screening for colon cancer 10/07/2024 Preventative health care 10/07/2024 Assessment & Plan (10/07/2024 10:35 AM EDT): Discussed with patient re increase fresh fruit and vegetable intake. Counseled re moderate exercise as tolerated, up to 20min/d Patient feels safe at home. PAP smear N/A due to [facility] Mammogram UTD. 10/2024 Bone density test UTD. 08/2025 Eye exam UTD. Next one due on 10/2025 CRC screen: Declined color anoscopy referral, agreed to Cologuard. Lipids/FBS UTD, next 1 due January 2025. Will order TB test today for home care program. Vaccinations: She will bring RSV vaccine information for the chart, otherwise adult immunizations are up-to-date Dental visit: UTD Dry skin dermatitis 09/08/2024 Assessment & Plan (09/08/2024 12:43 PM EST): Recommended moisturizer + hydrocortisone cream to affected areas. Decreased radial pulse 09/08/2024 Assessment & Plan (09/08/2024 12:46 PM EST): She has decreased capillary filling. Advised to loosen up bracelets. FU at next visit and order LIDA as needed. Dermatitis due to sun 04/28/2024 Assessment & Plan (04/28/2024 11:09 AM EDT): No specific rash at this time. Advised Pt to use SPF or long sleeves when exposed to sun. Follow up prn. Viral upper respiratory tract infection 01/01/20 24 Assessment & Plan (01/01/2024 3:04 PM EDT): Drink plenty of fluids and rest Thoracic back sprain 12/25/2023 Assessment & Plan (12/25/2023 11:53 AM EDT): Advised re heat pads and stretching exercises. Take tylenol + Flexeril prn, if no improvement , I will rx Tylenol/codeine Screening mammogram for breast cancer 10/22/2023 Assessment & Plan (10/22/2023 11:26 AM EDT): - will reschedule mammogram Asymptomatic menopause 07/18/2023 Assessment & Plan (07/18/2023 11:13 AM EST): Order dexa scan Upper respiratory disease 07/04/2023 Assessment & Plan (07/04/2023 6:57 PM EST): Flu and covid 19 test today here are neg Pt w likely upper respiratory viral syndrome Improving -supportive tx px today -hydration -isolation -advised to stop afrin -already using for > 3 days Arthritis of knee 10/14/2022 Assessment & Plan (02/14/2023 1:56 PM EDT): Can continue Ibuprofen, alternate with Tylenol prn Ambulation with walker to prevent falls. Declined PT referral, we discussed about our walk in acupuncture clinic. She can take Osteo bioflex supplement with Tumeric for her pain if she so desires, instead of Calcium for now. I told her that there are no Clinical studies that back up its use on OA but she can take it for at least 1mo and see if it makes a difference. I told her that I'm unaware of side effects of Osteo bioflex side effects. Assessment & Plan (10/14/2022 5:50 PM EDT): Continue ibuprofen alternating with tylenol PRN Use walker and shower chair to prevent falls Dry eye 10/14/2022 Assessment & Plan (10/14/2022 5:50 PM EDT): Continue natural tears refer to optometry Bilateral shoulder region arthritis 10/14/2022 Assessment & Plan (10/22/2023 11:35 AM EDT): - left shoulder significantly improved due to Cortisone injection last week - continue home based exercises and will consult PRN for additonal treament/consider Cortisone injection after 3 months - continue home exercises for right shoulder - continue Meloxicam up to one month + Tylenol PRN Assessment & Plan (10/14/2022 5:50 PM EDT): take tylenol alternating with ibuprofen refer to PT Trochanteric bursitis of left hip 10/14/2022 Assessment & Plan (10/14/2022 5:51 PM EDT): take tylenol alternating with ibuprofen refer to PT 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 23 Assessment & Plan (10/14/2022 5:52 PM EDT): discussed with patient regarding weight reduction Chronic low back pain with left-sided sciatica 0 10/14/2022 Assessment & Plan (10/14/2022 5:51 PM EDT): Take tylenol alternating with ibuprofen Refer to PT Use walker and shower chair to prevent falls Urinary incontinence 08/27/2022 Pain in right arm 08/27/2022 Menopausal syndrome 08/27/2022 Hallux valgus 08/27/2022 Dry eyes 08/27/2022 Dental abscess 08/27/2022 Dizziness 08/27/2022 Drug-induced constipation 08/27/2022 Neck sprain 08/27/2022 Spasm of cervical paraspinous muscle 12/02/2018 Anemia 11/10/2018 Mild intermittent asthma 11/04/2018 Contusion of abdominal wall 11/04/2018 Stress incontinence of urine 07/24/2018 Epigastric pain 02/23/2018 Degenerative joint disease of hand 07/02/2017 Heel pain 05/18/2015 S/P YAN-BSO 03/19/2012 Bipolar disorder 12/16/2011 Assessment & Plan (09/08/2024 12:42 PM EST): She is doing well on Depakote only, has not had a crisis in more than 5 years. I will continue to prescribe Depakote, no need for psychiatrist referral at this time. She is able to reach out for safety and feels safe at home. Assessment & Plan (07/04/2023 6:59 PM EST): -PHQ9 7 , BRANDON 4 ,no SI -to f w PCP ,refuse BH referral today nor psychiatric care States feeling stable Pure hypercholesterolemia 11/25/2011 Assessment & Plan (12/25/2023 2:44 PM EDT): LDL is at goal. Continue Simvastatin 20mg, tolerates it well, and fu lipids in 1y Recommended moderate amount of exercise and increase consumption of fruit, vegetables, fish and high fiber foods. Should decrease consumption of highly saturated fats or trans fats. Obstructive sleep apnea syndrome 11/25/2011 Assessment & Plan (10/22/2023 11:31 AM EDT): - she has not been using CPAP for more than 5 years. Will order sleep study, she is willing to use CPAP again Obesity 11/25/2011 Assessment & Plan (09/08/2024 3:08 PM EST): Discussed re weight reduction options including exercise, life style modifications, diet. Recommended to decrease soda and sugary beverage consumption, increase protein intake with meals (at least 1 portion of protein with each meal) to assist with satiety, increase dietary fiber Recommended at least 150 min/week of moderate intensity exercise. Will discuss about weight loss medications at next visit, will consider injectables. Assessment & Plan (12/25/2023 2:43 PM EDT): Discussed re weight reduction options including exercise, life style modifications, diet, referral to learning and development specialist. She will hold off on that for now. Discussed re lower calorie intake, increase dietary fiber Hypertension 11/25/2011 Assessment & Plan (04/28/2024 11:07 AM EDT): Controlled. Compliant w/meds Continue lisinopril/hctz same dose Counseled re low salt diet/increase moderate physical activity. Check home BP BIW and prn CP/ORTIZ/PABON Non smoking patient. Follow up in 6 months. Assessment & Plan (12/25/2023 2:43 PM EDT): Controlled. Compliant w/meds Continue lisinopril/hctz same dose Counseled re low salt diet/increase moderate physical activity. Check home BP BIW and prn CP/ORTIZ/PABON Non smoking patient. FU in 6m Assessment & Plan (10/22/2023 11:23 AM EDT): - uncontrolled today, probably related to recent Cortisone injection - no change in medication - order labs and f/u in 2 months Assessment & Plan (07/18/2023 11:12 AM EST): Controlled. Compliant w/meds. Repeated BP at end of visits 130/85 Counseled re low salt diet/increase moderate physical activity. Check home BP BIW and prn CP/ORTIZ/PABON Assessment & Plan (07/04/2023 6:58 PM EST): 140/90 -possible Reactive at this time -advised to check BP at home next week when feeling better and to bring BP readings to PCP Assessment & Plan (02/14/2023 11:41 AM EDT): Uncontrolled, repeated one is 150/95 Increase lisinopril to 40mg and continue HCTZ 25 Pt will check BP at home and call back prn dizziness, headache, weakness FU with me in 3 months Counseled re low salt diet/increase moderate physical activity. Check home BP BIW and prn CP/ORTIZ/PABON Non smoking patient. Assessment & Plan (10/14/2022 5:53 PM EDT): Uncontrolled today as pt didnt take her medications. reminded to take medications daily Continue HCTZ + Lisinopril Counseled re low salt diet/increase moderate physical activity. Check home BP BIW and prn CP/ORTIZ/PABON Non smoking patient. Exacerbation of asthma 11/25/2011 Type 2 diabetes mellitus wit h hyperglycemia, without long-term current use of insulin 11/25/2011 Assessment & Plan (10/07/2024 10:33 AM EDT): A1c has been at goal for over a year, she is doing well since she has been off metformin days past few weeks. Discussed about hyperglycemia prevention, re more frequent low calorie/carb meals plus add protein to each snack. Encouraged physical activity as tolerated. FU in 3m. Eye exam is up-to-date Foot examination is up-to-date Immunizations are up today, she will bring RSV vax documentation at next appointment Assessment & Plan (09/08/2024 12:40 PM EST): Controlled. A1c is low. DC Metformin and FU in 4-6 weeks. Discussed about hyperglycemia prevention, re more frequent low calorie/carb meals plus add protein to each snack. Encouraged physical activity as tolerated. FU in 6 weeks. Assessment & Plan (04/28/2024 11:08 AM EDT): Controlled. A1c is at goal. Continue on Metformin 1x/d only Counseled re more frequent low calorie/carb meals. Check fgstk once daily, she never checks finger sticks Encouraged physical activity as tolerated. FU in 3-4 months. Assessment & Plan (12/25/2023 2:44 PM EDT): Controlled. A1c is at goal. Continue on Metformin 1x/d only Counseled re more frequent low calorie/carb meals. Check fgstk once daily, she never checks finger sticks Encouraged physical activity as tolerated. FU in 3-4 months. Assessment & Plan (10/22/2023 11:35 AM EDT): Controlled. A1c is at goal. Continue on Metformin Counseled re more frequent low calorie/carb meals. Check fgstk once daily, she never checks finger sticks Encouraged physical activity as tolerated. FU in 3-4 months. Assessment & Plan (07/18/2023 11:13 AM EST): Controlled. A1c is at goal. Continue on metformin Counseled re more frequent low calorie/carb meals. Check fgstk once/twice prn daily Encouraged physical activity as tolerated. Will prescribe CGM at pt request to improve compliance w fgstk Assessment & Plan (02/14/2023 11:42 AM EDT): Controlled, A1C had celia at goal previously. Continue low dose metformin and fu in 3 months Counseled re more frequent low calorie/carb meals. Encouraged physical activity as tolerated. Assessment & Plan (10/14/2022 5:52 PM EDT): Controlled on low-dose metformin. Will continue metformin for now as it helps control pt's appetite Allergic rhinitis 11/25/2011 Backache 11/25/2011 Resolved Problems Problem Noted Date Diagnosed Date Resolved Date COPD with acute exacerbation 07/18/2023 09/08/2024 Assessment & Plan (07/18/2023 11:13 AM EST): Albuterol addressed today, cont albuterol inhaler q6hr for 3 days at home then PRN Complete PRD Tx Will have flu + PCV 20 in 3-4 wks once asthma Sx are resolved Encounters Date Type Department Care Team Description 10/07/2024 9:45 AM EDT Office Visit [facility] [address] [place] [address] Esem Flores MD Type 2 diabetes mellitus with hyperglycemia, without long-term current use of insulin (CMS/HCC) (Primary Dx); Screening for colon cancer; Preventative health care 10/07/2024 Travel 10/06/2024 10:30 AM EDT Office Visit [facility] [address] [place] [address] Milagros Spring, OD Diabetes type 2, no ocular involvement (CMS/HCC) (Primary Dx); Combined forms of age-related cataract of both eyes; PVD (posterior vitreous detachment), both eyes; Presbyopia of both eyes 10/06/2024 Travel 10/05/2024 Telephone [facility] [place] [address] Esme Flores MD Chart prep 09/28/2024 Patient Outreach [facility] [place] [address] Esme Flores MD Pre-visit Planning (SDOH screening completed on 09/08/2024) 09/18/2024 Refill [facility] [place] [address] Esme Flores MD 09/08/2024 10:15 AM EST Office Visit [facility] [place] [phone] Esme Flores MD Type 2 diabetes mellitus with hyperglycemia, without long-term current use of insulin (CMS/[facility]) (Primary Dx); Bipolar affective disorder, remission status unspecified (CMS/HCC); Class 3 severe obesity due to excess calories with serious comorbidity and body mass index (BMI) of 45.0 to 49.9 in adult (CMS/HCC); Dry skin dermatitis; Dietary counseling; Exercise counseling; Decreased radial pulse 09/08/2024 Travel 08/31/2024 Telephone [facility] [place] [address] Esme Flores MD Chart prep 08/27/2024 Patient Outreach [facility] [place] [address] Esme Flores MD Pre-visit Planning ((Unable to reach for PVP screening, LVM)) 08/24/2024 Travel 08/17/2024 10:30 AM EST Procedure Visit [facility] [address] [place], [place] [phone] Marta Valencia MD Chronic right shoulder pain (Primary Dx) 08/17/2024 Travel 08/06/2024 Refill [facility] [place] [place] [address] Esme Flores MD HTN (hypertension), benign 07/29/2024 Refill [facility] [address] [place] [address] [phone] Esme Flores MD Type 2 diabetes mellitus with diabetic polyneuropathy, with long-term current use of insulin ([facility]) 07/20/2024 10:30 AM EST Procedure Visit [facility] [address] [place] [id number] Marta Valencia MD Adhesive capsulitis of left shoulder (Primary Dx) 07/20/2024 Travel from Last 3 Months Immunizations Name Administration Dates Next Due Hep A, ped/adol, 2 dose 07/17/2007,10/03/2006 Hep B, Adolescent or Pediatric 10/03/2008,2007,11/05/2006 Influenza High-dose Quadriva lent Preservative Free 08/27/2023 Influenza injectable quadriv alent IIV4 with preservative 04/30/2019,07/02/2017 Influenza injectable quadriv alent preservative free 05/03/2022,04/26/2021,05/11/2020,07/24,05/18/2015 Influenza, High Dose Seasona l, Preservative Free 04/28/2024 Influenza, IIV3, injectable 04/27/2014 Influenza, Split (incl. alphonso fied surface antigen) 04/21/2013,04/09/2012 Pneumococcal Conjugate PCV 20 08/27/2023 Pneumococcal Polysaccharide PPSV23 08/29/2005 TD (adult), 2 Lf tetanus tox oid, preservative free, adsorbed 05/15/2000 Tdap 05/31/2020,04/18/2010 Zoster, Recombinant 09/28/2020,07/27/2020 Social History Tobacco Use Types Packs/Day Years Used Date Smoking Tobacco: Never Passive Smoke Exposure: Never Smokeless Tobacco: Never Tobacco Cessation:Counseling Given: Not Answered Alcohol Use Standard Drinks/Week Comments Not Currently [...] not to disclose 2021 10:15 AM EDT Last Filed Vital Signs Vital Sign Reading Time Taken Comments Blood Pressure 124/78 10/07/2024 9:31 AM EDT Pulse 87 10/07/2024 9:31 AM EDT Temperature 36.3 ??C (97.3 ??F) 10/07/2024 9:31 AM ED T Respiratory Rate 17 10/07/2024 9:31 AM EDT Oxygen Saturation 95% 10/07/2024 9:31 AM EDT Inhaled Oxygen Concentration - - Weight 108 kg (237 lb) 10/07/2024 9:31 AM EDT Height 152.4 cm (5') 10/07/2024 9:31 AM EDT Body Mass Index 46.29 10/07/2024 9:31 AM EDT Plan of Treatment Upcoming Encounters Date Type Department Care Team (Late st Contact Info) Description 12/22/2024 10:00 AM EDT Office Visit [facility] [address] [place] [address] Saw, Milagros, OD [address] [place] [address] Health Maintenance Due Date Last Done Comments CT Colonography 1958 Colonoscopy 1958 Colorectal Cancer Screening 1958 FIT DNA/Cologuard 1958 FIT 1958 FOBT 1958 Sigmoidoscopy 1958 Alcohol/Substance Use Screening 1970 RSV Patients and Patients Aged 60 years or older (1 - Risk 60-74 years 1-dose series) 2018 Dental Oral Exam 12/16/2019 06/15/2019, , 10/19/2014, Additional history exists Dental Prophylaxis 09/11/2021 03/13/2021, 1 08/16/2018, 06/03/2018, Additional history exists Dental X-Ray: Bitewings 04/05/2022 04/04/20 21, 03/13/2021, 06/15/2019, Additional history exists Dental X-Ray: Full Mouth 06/16/2022 06/15/2019, 02/05 Diabetes: Urine Protein Screening 12/15/2024 12/16/2023, 08/22/2022, 10/26/2020, Additional history exists Lipid Panel 12/15/2024 12/16/2023, 08/07, 07/27/2020 Diabetes: Foot Exam 12/24/2024 12/25/2023, 12/25/2023, 12/25/2023, Additional history exists Mammogram 02/16/2025 02/17/2024, 06/06, 02/05/2021, Additional history exists Depression Monitoring (PHQ-9) 03/11/2025 09/08/2024, 09/08/2024 Diabetes: Hemoglobin A1C 03/11/2025 025, 12/25/2023, 07/03/2023, Additional history exists Depression Screening 09/08/2025 09/08/2024, 09/09/19 25 SDOH Screening 09/08/2025 09/08/2024 Tobacco Screening 10/07/2025 10/07/2024 Eye Exam 10/06/2026 10/06/2024, 04/0 08/2024, 10/06/2024, Additional history exists DTaP/Tdap/Td Vaccines (3 - Td or Tdap) 05/31/2030 05/31/2020, 04/18/2010, 05/15/2000 Hepatitis A Vaccines Aged Out 07/17/2007, 10/04/19 07 No longer eligible based on patient's age to complete this topic Hepatitis B Vaccines Aged Out 10/03/2008, 07/17/2007, 11/05/2006 No longer eligible based on patient's age to complete this topic Zoster Vaccines Completed 09/28/2020, 07/27/2020 Hepatitis C Screening Completed 08/22/2022 Pneumococcal Vaccine: 50+ Years Completed 08/27/2023, 08/29/2005 Influenza Vaccine Completed 04/28/2024, , 05/03/2022, Additional history exists COVID-19 Vaccine Completed 09/18/2024, , 02/01/2021 HIB Vaccines Aged Out No longer eligi ble based on patient's age to complete this topic HPV Vaccines Aged Out No longer eligi ble based on patient's age to complete this topic IPV Vaccines Aged Out No longer eligi ble based on patient's age to complete this topic Meningococcal Vaccine Aged Out No walker jesus eligible based on patient's age to complete this topic RSV under 20 months Aged Out No longe r eligible based on patient's age to complete this topic Rotavirus Vaccines Aged Out No longer eligible based on patient's age to complete this topic Procedures Procedure Name Priority Date/Time Associated Diagnosis Comments POCT GLUCOSE Routine 10/07/2024 9:32 AM EDT Type 2 diabetes mellitus with hyperglycemia, without long-term current use of insulin ([facility]) POCT GLYCATED HEMOGLOBIN, TOTAL Routine 09/08/2024 10:27 AM EST Type 2 diabetes mellitus with hyperglycemia, without long-term current use of insulin ([facility]) POCT GLUCOSE Routine 09/08/2024 10:27 AM EST Type 2 diabetes mellitus with hyperglycemia, without long-term current use of insulin ([facility]) AL ARTHROCENTESIS ASPIR&/INJ MAJOR JT/BURSA W/O US Routine 08/17/2024 9:54 AM EST Chronic right shoulder pain AL ARTHROCENTESIS ASPIR&/INJ MAJOR JT/BURSA W/O US Routine 07/20/2024 10:32 AM EST Adhesive capsulitis of left shoulder BI MAMMOGRAM SCREENING TOMOSYNTHESIS BILATERAL Routine 02/17/2024 10:56 AM EDT Screening mammogram for breast cancer ALBUMIN, RANDOM URINE W/CREATININE Routine 12/16/2023 12:08 PM EDT Type 2 diabetes mellitus with hyperglycemia, without long-term current use of insulin (CMS/HCC) LIPID PANEL WITH REFLEX TO DIRECT LDL Routine 12/16/2023 12:08 PM EDT Primary hypertension HEPATITIS C AB W/REFL TO HCV RNA, QN, PCR Routine 08/22/2022 12:20 PM EST BITEWINGS - 2 RADIOGRAPHIC IMAGES Routine 04/04/2021 12:00 AM EDT PROPHYLAXIS - ADULT Routine 03/13/2021 1 2:00 AM EDT INTRAORAL - COMPLETE SERIES OF RADIOGRAPHIC IMAGES Routine 06/15/2019 12:00 AM EST PERIODIC ORAL EVALUATION - ESTABLISHED PATIENT Routine 06/15/2019 12:00 AM EST from Last 3 Months or Most Recently Relevant to Health Maintenance Results * POCT Glucose (10/07/2024 9:32 AM EDT) Only the most recent of2 resultswithin the time period is included. Glucose Blood, POC 125 60 - 200 mg/dL QC Media Lot # [id number] Lot# Expiration Date Blood Capillary blood specimen / Unknown 10/07/2024 9:32 AM EDT us Esme Flores MD POINT OF CARE TEST ENTER /EDIT ORDERABLES Final Result * POCT HGB A1C (09/08/2024 10:27 AM EST) Hemoglobin A1C 5.3 4.0 - 6.0 % QC Media Lot # [id number] Lot# Expiration Date [id number] Blood 09/08/2024 10:2 7 AM EST us Esme Flores MD POINT OF CARE TEST ENTER /EDIT ORDERABLES Final Result * AL ARTHROCENTESIS ASPIR&/INJ MAJOR JT/BURSA W/O US (08/17/2024 9:54 AM EST) Narrative Marta Valencia MD - 08/17/2024 9:54 AM EST Marta Valencia MD ? 08/17/2024 10:12 AM Arthrocentesis Date/Time: 08/17/2024 9:54 AM Performed by: Marta Valencia MD Authorized by: Marta Valencia MD ?? Consent: ??Consent obtained: ??Verbal and written ??Consent given by: ??Patient ??Risks, benefits, and alternatives were discussed: yes ?Risks discussed: ??Pain ??Alternatives discussed: ??Referral Morgan protocol: ??Procedure explained and questions answered to patient or proxy's satisfaction: yes ?Relevant documents present and verified: yes ?Test results available: yes ?Imaging studies available: yes ?Required blood products, implants, devices, and special equipment available: yes ?Site/side marked: yes ?Immediately prior to procedure, a time out was called: yes ?Patient identity confirmed: ??Verbally with patient Location: ??Location: ??Shoulder ??Shoulder: ??R glenohumeral Anesthesia: ??Anesthesia method: ??Topical application Procedure details: ??Preparation: Patient was prepped and draped in usual sterile fashion ?Needle gauge: ??22 G ??Ultrasound guidance: no ?Approach: ??Posterior ??Steroid injected: yes ?? Post-procedure details: ??Dressing: ??Adhesive bandage ??Procedure completion: ??Tolerated us Marta Valencia MD IN CLINIC/BEDSIDE ORDERABLES Fin al Result * AL ARTHROCENTESIS ASPIR&/INJ MAJOR JT/BURSA W/O US (07/20/2024 10:32 AM EST) Narrative Marta Valencia MD - 07/20/2024 10:32 AM EST Marta Valencia MD ? 07/20/2024 10:43 AM Arthrocentesis Date/Time: 07/20/2024 10:32 AM Performed by: Marta Valencia MD Authorized by: Marta Valencia MD ?? Consent: ??Consent obtained: ??Verbal and written ??Consent given by: ??Patient ??Risks, benefits, and alternatives were discussed: yes ?Risks discussed: ??Pain ??Alternatives discussed: ??Referral Morgan protocol: ??Procedure explained and questions answered to patient or proxy's satisfaction: yes ?Relevant documents present and verified: yes ?Test results available: yes ?Imaging studies available: yes ?Required blood products, implants, devices, and special equipment available: yes ?Site/side marked: yes ?Immediately prior to procedure, a time out was called: yes ?Patient identity confirmed: ??Verbally with patient Location: ??Location: ??Shoulder ??Shoulder: ??L glenohumeral Anesthesia: ??Anesthesia method: ??Topical application Procedure details: ??Preparation: Patient was prepped and draped in usual sterile fashion ?Needle gauge: ??22 G ??Ultrasound guidance: no ?Approach: ??Posterior ??Steroid injected: yes ?Specimen collected: no ?? Post-procedure details: ??Dressing: ??Adhesive bandage ??Procedure completion: ??Tolerated us Marta Valencia MD IN CLINIC/BEDSIDE ORDERABLES Fin al Result * BI Mammogram Screening Tomosynthesis Bilateral (02/17/2024 10:56 AM EDT) Anatomical Region Laterality Modality Breast Bilateral Mammography 02/17/2024 10:5 6 AM EDT Narrative 03/11/2024 3:54 PM EDT ? [facility] ? [address] ?[place] [address] ? Mammography Report ? Signed ? Patient: Narberth,Bella ?MR#: [id number] ?? [id number] ? : 1960 ?Acct:[id number] ? Age/Sex: 63 / F ?ADM Date: 02/17/24 ? Loc: HO.MAMMO ? Attending Dr: Esme Flores MD ? Ordering Physician: Esme Flores MD ?Results: 1Ne ?? gative ? Date of Service: 02/17/24 ?Follow Up: 1 Year From Orig ?? inal Mammogram ? Procedure(s): MM tomosynthesis screening BI ?? Accession Number(s): [id number] ? cc: Esme Flores MD ? EXAMINATION: ?? MM SCREENING DIGITAL BREAST TOMOSYNTHESIS, BILATERAL ? CLINICAL INFORMATION: ? Screening. Asymptomatic. ? COMPARISON: ?? Mammography: This study is compared with prior exams dating back to ? 2017. ? TECHNIQUE: ?? Digital breast tomosynthesis is performed in both the craniocaudal and ?? mediolateral oblique views along with computer-aided detection (CAD). ? Synthesized 2D images are generated from the tomosynthesis. ? FINDINGS: ?? There are scattered areas of fibroglandular density (ACR BI-RADS breast ?? composition Category b). ? There are no significant masses, abnormal calcifications, or other ?? abnormalities. ? MM/MM tomosynthesis screening BI ?? IMPRESSION: ?? No mammographic evidence of malignancy. ? ASSESSMENT: ? BI-RADS BI-RADS 1 - Negative ? RECOMMENDATION: ?? Routine annual mammography screening. ? 1 year F/U ? This examination should not preclude the clinical evaluation of a ?? suspicious palpable abnormality. ? This patient's information was entered into a reminder system with a ?? target due date for their next mammogram. ? Electronically signed by: ??Alejandra Chapa MD ??03/11/2024 03:51 PM EDT RP ? Dictated By: ?Alejandra Chapa MD ? Signed By: ?<Electronically signed by Alejandra Chapa MD in OV> ? 03/11/24 1551 ? DD/ 1056 ? TD/TT: 02/17/24 1114 ? Company Pilot: ? Procedure Note Donmarquise, Image - 03/11/2024 [facility] [address] [place] [address] Mammography Report Signed Patient: Bella VanceMR#: [id number] : 8Acct:[id number] Age/Sex: 63 / FADM Date: 02/17/24 Loc: HO.MAMMO Attending Dr: Esme Flores MD Ordering Physician: Esme Flores MDResults: 1Ne gative Date of Service: 02/17/24Follow Up: 1 Year From Orig inal Mammogram Procedure(s): MM tomosynthesis screening BI Accession Number(s): [id number] cc: Esme Flores MD EXAMINATION: MM SCREENING DIGITAL BREAST TOMOSYNTHESIS, BILATERAL CLINICAL INFORMATION: Screening. Asymptomatic. COMPARISON: Mammography: This study is compared with prior exams dating back to 2017. TECHNIQUE: Digital breast tomosynthesis is performed in both the craniocaudal and mediolateral oblique views along with computer-aided detection (CAD). Synthesized 2D images are generated from the tomosynthesis. FINDINGS: There are scattered areas of fibroglandular density (ACR BI-RADS breast composition Category b). There are no significant masses, abnormal calcifications, or other abnormalities. MM/MM tomosynthesis screening BI IMPRESSION: No mammographic evidence of malignancy. ASSESSMENT: BI-RADS BI-RADS 1 - Negative RECOMMENDATION: Routine annual mammography screening. 1 year F/U This examination should not preclude the clinical evaluation of a suspicious palpable abnormality. This patient's information was entered into a reminder system with a target due date for their next mammogram. Electronically signed by: Alejandra Chapa MD 03/11/2024 03:51 PM EDT RP Dictated By: Alejandra Chapa MD Signed By: <Electronically signed by Alejandra Chapa MD in OV> 03/11/24 1551 DD/ 1056 TD/TT: 02/17/24 1114 Company Pilot: us Esme Flores MD IMG BI PROCEDURES Edited Result - Final * Lipid Panel with Reflex to Direct LDL (12/16/2023 12:08 PM EDT) Triglycerides 50 <150 mg/dL [facility] Comment:Desirable Triglyceri de: less than 150 mg/dLBorderline High Triglyceride 150-199 mg/dLHigh Triglyceride: 200-499 mg/dLVery High Triglyceride: greater than or equal to 5OO mg/dL Cholesterol 121 <200 mg/dL [facility] Comment:Desirable Cholestero l: less than 200 mg/dLBorderline High Cholesterol: 200-239 mg/dLHigh Cholesterol: greater than 239 mg/dL LDL Cholesterol Calculated 69 <100 mg/dL [facility] Comment:Desirable LDL: less than 100 mg/dLNear Optimal/Above Optimal LDL: 110- 129 mg/dLBorderline High LDL: 130-159 mg/dLHigh LDL: 160-189 mg/dLVery High LDL: greater than or equal to 190 mg/dL HDL Cholesterol 42 >40 mg/dL [facility] Comment:Desirable HDL: grea ter than 40 mg/dL Note: This HDL assay may give artificially low results in patients with liver disease. Blood 12/16/2023 12:0 8 PM EDT 12/16/2023 1:30 PM EDT Esme Flores MD LAB BLOOD ORDERABLES Fin al Result Performing Organization Address [facility] de Phone Number [facility] [address] [place] [phone] * Albumin, Random Urine W/Creatinine (12/16/2023 12:08 PM EDT) Creatinine, Urine 177.89 mg/dL [facility] Microalbumin Urine 9.0 mg/L [facility] Microalbum Creatinine Ratio Ur 5.0 <30 ug/mg cr [facility] Comment:Albumin/Creatinine R atio Reference Ranges: Normal: < 30 ug/mg creatinine Microalbuminuria: 30 - 300 ug/mg creatinineClinical Albuminuria: > 300 ug/mg creatinine Urine (Urine, Random) 12/16/2023 12:08 PM EDT 12/16/2023 1:33 PM EDT Esme Flores MD LAB URINE ORDERABLES Fin al Result Performing Organization Address [facility] de Phone Number [facility] [address] [place] [phone] * Hepatitis C Antibody with Reflex to HCV, RNA, Quantitative, Real-Time PCR (08/22/2022 12:20 PM EST) Hepatitis C Antibody NON-REACT HERBERT NON-REACT HERBERT [facility] Index 0.10 <1.00 [facility] Comment: HCV antibody was non-reactive. There is no laboratory evidence of HCV infection. In most cases, no further action is required. However, if recent HCV exposure is suspected, a test for HCV RNA (test code 06884) is suggested. For additional information please refer to http://education.Swapdom/faq/IQT97q9 (This link is being provided for informational/ educational purposes only.) 08/22/2022 12:2 0 PM EST 08/22/2022 12:21 PM EST Narrative [facility] - 08/28/2022 11:02 PM EST FASTING:NO FASTING: NO Esme Flores MD LAB BLOOD ORDERABLES Fin al Result [facility] [address] [place] [address] [facility] [address], ([address]) [place] [address] from Last 3 Months or Most Recently Relevant to Health Maintenance Insurance [facility] [address] [place] [phone] [facility] - [facility] [place] [address] Care Teams Rivet Heater Relationship Specialty Start Date End Date Esme Flores MD [address] [place] [phone] PCP - General Family Medicine 02/19/17
--- OUTSIDE RECORDS SUMMARY | 2024-10-07 11:11 | XMS_ITS | Encounter Summary ---
Author Organization [employer] Address [address] [place] [address] Care Team Providers Care Actimize Architect Name Role Phone Esme Flores MD Primary Care Provider + Reason for Visit * Reason Comments Diabetes Encounter Details Date Type Department Care Team ([facility] Contact Info) Description 10/07/2024 9:45 AM EDT Office Visit [facility] [address] [place] [phone] Esme Flores MD [address] [place] [address] Type 2 diabetes mellitus with hyperglycemia, without long-term current use of insulin ([facility]) (Primary Dx); Screening for colon cancer; Preventative health care Social History Tobacco Use Types Packs/Day Years [...] AM EDT documented as of this encounter Last Filed Vital Signs Vital Sign Reading [...] Mass Index 46.29 10/07/2024 9:31 AM EDT documented in this encounter Progress Notes * Esme Flores MD - 10/07/2024 9:45 AM EDT SUBJECTIVE: Bella Vance is a 64 y.o. year old female who presents for routine physical exam. Denies recentillness, injury, or hospitalization. Patient here for for home care program. Her mammogram, labs, BMD test are up to date. She had hysterectomy, she does not need Pap smear She has had all her immunizations including COVID last month, she is up-to-date on influenza, PCV, zoster, Td and she tells me she had RSV immunization at [facility] last month as well (records not available from that immunization) . She last saw chain maker hand this week. 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 Aacute Concerns: Overall she is doing well, she tells me she feels better being off metformin. She has seen the difference from not having further episodes of lightheadedness, diaphoresis, headache and palpitations at times especially when she was being active. She is not checking fingersticks at home but she now thinks that those episodes were actually hypoglycemia. Social History Social History Narrative Not on file Patient Active Problem List Diagnosis Urinary incontinence Stress incontinence of urine Spasm of cervical paraspinous muscle S/P YAN-BSO Pure hypercholesterolemia Pain in right arm Obstructive sleep apnea syndrome Obesity Mild intermittent asthma Menopausal syndrome Hypertension Heel pain Hallux valgus Exacerbation of asthma Epigastric pain Dry eyes Contusion of abdominal wall Degenerative joint disease of hand Dental abscess Type 2 diabetes mellitus with hyperglycemia, without long-term current use of insulin ([facility]) Dizziness Drug-induced constipation Allergic rhinitis Anemia Backache Bipolar disorder ([facility]) Neck sprain Arthritis of knee Dry eye Bilateral shoulder region arthritis Trochanteric bursitis of left hip Hyperlordosis deformity of lumbar spine Chronic low back pain with left-sided sciatica Upper respiratory disease Asymptomatic menopause Screening mammogram for breast cancer Thoracic back sprain Viral upper respiratory tract infection Dermatitis due to sun Dry skin dermatitis Decreased radial pulse Screening for colon cancer Preventative health care No family history on file. Review of Systems Constitutional: Negative for chills, fatigue and fever. HENT: Negative for congestion, ear pain, nosebleeds, rhinorrhea, sinus pressure, sore throat and trouble swallowing. Eyes: Negative for pain and discharge. Respiratory: Negative for cough, chest tightness and shortness of breath. Cardiovascular: Negative for chest pain, palpitations and leg swelling. Gastrointestinal: Negative for abdominal pain, blood in stool, constipation, diarrhea and nausea. Endocrine: Negative for polydipsia and polyuria. Genitourinary: Negative for dysuria, frequency, genital sores, pelvic pain and vaginal discharge. Musculoskeletal: Positive for arthralgias, back pain and gait problem (Walks with a walker). Negative for neck pain. Skin: Negative for rash. Allergic/Immunologic: Negative for environmental allergies. Neurological: Negative for dizziness, seizures, weakness, light-headedness and headaches. Hematological: Negative for adenopathy. Psychiatric/Behavioral: Negative for agitation, behavioral problems, self-injury and suicidal ideas. OBJECTIVE: Vitals: 10/07/24 0931 BP: 124/78 Pulse: 87 Resp: 17 Temp: 97.3 ??F (36.3 ??C) SpO2: 95% Physical Exam HENT: Right Ear: Tympanic membrane and ear canal normal. Left Ear: Tympanic membrane and ear canal normal. Mouth/Throat: Mouth: Mucous membranes are moist. Pharynx: No oropharyngeal exudate or posterior oropharyngeal erythema. Eyes: Pupils: Pupils are equal, round, and reactive to light. Cardiovascular: Rate and Rhythm: Regular rhythm. Pulses: Normal pulses. Heart sounds: Normal heart sounds. No murmur heard. Pulmonary: Breath sounds: Normal breath sounds. Abdominal: General: Bowel sounds are normal. Palpations: Abdomen is soft. Tenderness: There is no abdominal tenderness. Musculoskeletal: Left shoulder: Tenderness and bony tenderness present. Decreased range of motion. Cervical back: Neck supple. Right knee: Decreased range of motion. Left knee: Decreased range of motion. Tenderness present over the medial joint line. Skin: General: Skin is warm. Neurological: General: No focal deficit present. Mental Status: She is alert and oriented to person, place, and time. Psychiatric: Mood and Affect: Mood normal. Behavior: Behavior normal. Office Visit on 10/07/2024 Component Date Value Ref Range Status Glucose Blood, POC 10/07/2024 125 60 - 200 mg/dL Final QC Media Lot # 10/07/2024 [id number] Final Lot# Expiration Date 10/07/2024 [id number] Final Problem List Items Addressed This Visit Type 2 diabetes mellitus with hyperglycemia, without long-term current use of insulin ([facility]) - Primary A1c has been at goal for over [...] bring RSV vax documentation at next appointment Relevant Orders POCT Glucose (Completed) Screening for colon cancer Relevant Orders Cologuard?? colon cancer screening Preventative health care Discussed with patient re increase fresh fruit and vegetable intake. Counseled re moderate exercise as tolerated, up to 20min/d Patient feels safe at home. PAP smear N/A due to [facility] Mammogram UTD. 10/2024 Bone density test UTD. 08/2025 Eye exam UTD. Next one due on 10/2025 CRC screen: Declined color anoscopy referral, agreed to Cologuard. Lipids/FBS UTD, next 1 due January 2025. Will order TB test today for home care program. Vaccinations: She will bring RSV vaccine information for the chart, otherwise adult immunizations are up-to-date Dental visit: UTD Follow Up: Current Outpatient Medications on File Prior to Visit Medication Sig Dispense Refill acetaminophen (Arthritis Pain Relief) 650 MG ER tablet TAKE 2 TABLETS BY MOUTH EVERY 8 HOURS NEEDED. SWALLOW WHOLE WITH WATER. DO NOT BREAK, CRUSH, DISSOLVE OR CHEW 16 tablet 0 albuterol 108 (90 Base) MCG/ACT inhaler Inhale 2 puffs every 4 (four) hours if needed for wheezing.18 g 3 ammonium lactate (Amlactin) 12 % cream Apply topically if needed for dry skin. 385 g 0 Aspirin Low Dose 81 MG EC tablet TAKE 1 TABLET BY MOUTH EVERY MORNING 90 tablet 3 cetirizine (ZyrTEC) 10 MG tablet TAKE 1 TABLET BY MOUTH EVERY DAY NEEDED 90 tablet 1 cyclobenzaprine (Flexeril) 10 MG tablet TAKE 1 TABLET BY MOUTH AT BEDTIME 30 tablet 5 divalproex (Depakote) 250 MG EC tablet TAKE 1 TABLET BY MOUTH TWICE DAILY IN THE MORNING AND IN THEEVENING 60 tablet 5 docusate sodium (Colace) 100 MG capsule TAKE 1 CAPSULE BY MOUTH TWICE DAILY NEEDED CONSTIPATION 180 capsule 3 Driminate 50 MG tablet TAKE 1 TABLET BY MOUTH EVERY TWELVE HOURS NEEDED 30 tablet 5 fluticasone (Flonase) 50 MCG/ACT nasal spray Administer 1-2 sprays into each nostril in the morningfor 14 days. Shake gently. Before first use, prime pump. After use, clean tip and replace cap. 16 g0 glucose blood (FREESTYLE LITE) test strip apply 1 by to skin route once daily hydroCHLOROthiazide (HYDRODiuril) 25 MG tablet TAKE 1 TABLET BY MOUTH EVERY MORNING 90 tablet 3 hydrocortisone 2.5 % cream Apply topically 2 times daily. 28 g 1 lisinopril 40 MG tablet TAKE 1 TABLET BY MOUTH EVERY MORNING 90 tablet 3 montelukast (Singulair) 10 MG tablet TAKE 1 TABLET BY MOUTH EVERY EVENING 90 tablet 3 naproxen (Naprosyn) 500 MG tablet TAKE 1 TABLET BY MOUTH TWICE DAILY IN THE MORNING AND IN THE EVENING WITH MEALS 120 tablet 1 omeprazole (PriLOSEC) [address] capsule TAKE 1 CAPSULE BY MOUTH EVERY MORNING 30- 60 MINUTES BEFORE BREAKFAST 90 capsule 1 polyvinyl alcohol (Liquifilm Tears) 1.4 % ophthalmic solution use 1gtt each eye q6h prn dry eey/itchy eye 30 mL 11 simvastatin (Zocor) 20 MG tablet TAKE 1 TABLET BY MOUTH EVERY EVENING 90 tablet 3 sodium chloride (Diablock Nasal [place]) 0.65 % nasal spray Administer 1 spray into each nostril if needed for congestion. 30 mL 12 traZODone (Desyrel) 50 MG tablet TAKE 1 TABLET BY MOUTH AT BEDTIME NEEDED FOR SLEEP 30 tablet 5 zoster vaccine, live, (Zostavax) 77465 UNT/0.65ML injection inject 0.65 milliliter by subcutaneous route once No current facility-administered medications on file prior to visit. documented in this encounter Miscellaneous Notes * Assessment & Plan Note - Esme Flores MD - 10/07/2024 10:35 AM EDT Associated Problem(s): Preventative health care Discussed with patient re increase fresh fruit and vegetable intake. Counseled re moderate exercise as tolerated, up to 20min/d Patient feels safe at home. PAP smear N/A due to [facility] Mammogram UTD. 10/2024 Bone density test UTD. 08/2025 Eye exam UTD. Next one due on 10/2025 CRC screen: Declined color anoscopy referral, agreed to Cologuard. Lipids/FBS UTD, next 1 due January 2025. Will order TB test today for home care program. Vaccinations: She will bring RSV vaccine information for the chart, otherwise adult immunizations are up-to-date Dental visit: UTD * Assessment & Plan Note - Esme Flores MD - 10/07/2024 10:33 AM EDT Associated Problem(s): Type 2 diabetes mellitus with hyperglycemia, without long-term current use of insulin ([facility]) A1c has been at goal for over [...] bring RSV vax documentation at next appointment documented in this encounter Plan of Treatment Upcoming Encounters Date Type Department Care Team (Late st Contact Info) Description 12/22/2024 10:00 AM EDT Office Visit [facility] [address] [place] [address] SawMilagros, OD [address] [place] [address] Scheduled Orders Name Type Priority Associated Diagnoses Orde r Schedule Cologuard?? colon cancer screening Lab Routine Screening for colon cancer Ordered: 10/07/2024 documented as of this encounter Procedures Procedure Name Priority Date/Time Associated Diagnosis Comments POCT GLUCOSE Routine 10/07/2024 9:32 AM EDT Type 2 diabetes mellitus with hyperglycemia, without long-term current use of insulin ([facility]) documented in this encounter Results * POCT Glucose (10/07/2024 9:32 AM EDT) Glucose Blood, POC 125 60 - 200 mg/dL QC Media Lot # [id number] Lot# Expiration Date Blood Capillary blood specimen / Unknown 10/07/2024 9:32 AM EDT Esme Flores MD POINT OF CARE TEST ENTER /EDIT ORDERABLES Final Result documented in this encounter Visit Diagnoses Diagnosis Type 2 diabetes mellitus with hyperglycemia, without long-term current use of insulin ([facility])- Primary Screening for colon cancer Special screening for malignant neoplasms, colon Preventative health care Routine general medical examination at a health care facility documented in this encounter Additional Health Concerns Assessment Noted Time PHQ-9 Depression Total Score: 12 09/08/ 025 10:31 AM EST documented as of this encounter Care Teams Actimize Architect Relationship Specialty Start Date End Date Esme Flores MD [address] [place] [phone] PCP - General Family Medicine 02/19/17 documented as of this encounter
--- OUTSIDE RECORDS SUMMARY | 2024-10-07 11:12 | XMS_ITS | Encounter Summary ---
Author Organization [employer] Address [address] [place] [address] Care Team Providers Care Printing Press Operator Name Role Phone Esme Flores MD Primary Care Provider + Encounter Details Date Type Department Care Team ([facility] st Contact Info) Description 03/25/2024 Telephone [facility] [address] [place] [address] Esme Flores MD [address] [place] [phone] Social History Tobacco Use Types Packs/Day Years Used Date Smoking Tobacco: Never Passive Smoke Exposure: Never Smokeless Tobacco: Never Alcohol Use Standard Drinks/Week Comments Not Currently 0 (1 standard drink = 0.6 oz pur e alcohol) Depression Answer Date Recorded Patient Health Questionnaire-9 Score 15 10/14/2022 Housing Stability Answer Date Recorded What is [...] Date Recorded Patient Health Questionnaire-2 Score 4 10/14/2022 Comments No Sex and Gender Information Value [...] Description 12/22/2024 10:00 AM EDT Office Visit [facility] [address] [place], [place] [phone] Saw, Milagros, OD [address] [place] [address] documented as of this encounter Visit Diagnoses Not on filedocumented in this encounter Additional Health Concerns Assessment Noted Time PHQ-9 Depression Total Score: 15 023 1:05 PM EDT documented as of this encounter Care Teams Printing Press Operator Relationship Specialty Start Date End Date Esme Flores MD [address] [place] [address] PCP - General Family Medicine 02/19/17 documented as of this encounter
--- OUTSIDE RECORDS SUMMARY | 2024-10-07 11:12 | XMS_ITS | Encounter Summary ---
Author Organization [employer] Address [address] 7t [place] [address] Care Team Providers Care Dry Cell Assembly Supervisor Name Role Phone Esme Flores MD Primary Care Provider + Reason for Visit * Reason Comments Med Refill Encounter Details Date Type Department Care Team ([facility] st Contact Info) Description 05/14/2023 Refill [facility] [address] [place], [place] [phone] Esme Flores MD 230 [place] [address] Gastroesophageal reflux disease, unspecified whether esophagitis present Social History Tobacco Use Types Packs/Day Years [...] Patient Health Questionnaire-2 Score 4 10/14/2022 Comments Unknown Sex and Gender Information Value [...] Description 12/22/2024 10:00 AM EDT Office Visit [facility] [address] [place] [address] Saw, Milagros, OD 230 [place] [address] documented as of this encounter Visit Diagnoses Diagnosis Gastroesophageal reflux disease, unspecified whether esophagitis present documented in this encounter Additional Health Concerns Assessment Noted Time PHQ-9 Depression Total Score: 15 023 1:05 PM EDT documented as of this encounter Care Teams Dry Cell Assembly Supervisor Relationship Specialty Start Date End Date Esme Flores MD 230 [place] [address] PCP - General Family Medicine 02/19/17 documented as of this encounter
--- OUTSIDE RECORDS SUMMARY | 2024-10-07 11:12 | XMS_ITS | Encounter Summary ---
Author Organization [employer] Address [address] 7[address] [place] [address] Care Team Providers Care Staff Genetic Counselor Name Role Phone Esme Flores MD Primary Care Provider + Reason for Visit * Reason Onset Date Comments Appointment Request 12/17/2023 Encounter Details Date Type Department Care Team ([facility] st Contact Info) Description 12/17/2023 Telephone [facility] [address] [place] [address] Esme Flores MD 230 [place] [address] Appointment Request Social History Tobacco Use Types Packs/Day Years [...] encounter Miscellaneous Notes * Telephone Encounter - César Prabhakar - 12/19/2023 10:17 AM EDT Tc from pt requesting status director of front office * Telephone Encounter - Cecily Delgado - 12/17/2023 11:15 AM EDT Tc from pt requesting Cortisone shot appt with Dr Valencia documented in this encounter Plan of Treatment Upcoming Encounters Date Type Department Care Team (Late st Contact Info) Description 12/22/2024 10:00 AM EDT Office Visit [facility] [address] [place] [address] Saw, Milagros, OD 230 [place] [address] documented as of this encounter Visit Diagnoses Not on filedocumented in this encounter Additional Health Concerns Assessment Noted Time PHQ-9 Depression Total Score: 15 023 1:05 PM EDT documented as of this encounter Care Teams Staff Genetic Counselor Relationship Specialty Start Date End Date Esme Flores MD 230 [place] [address] PCP - General Family Medicine 02/19/17 documented as of this encounter
--- OUTSIDE RECORDS SUMMARY | 2024-10-07 11:12 | XMS_ITS | Encounter Summary ---
Author Organization [employer] Address [address] [place] [address] 7t [place] [address] Care Team Providers Care Him Specialists Name Role Phone Esme Flores MD Primary Care Provider + Encounter Details Date Type Department Care Team (Late st Contact Info) Description 09/30/2022 Orders Only [facility] [address] [place] [address] Catia Jarrell LPN Social History Tobacco Use Types Packs/Day [...] Description 12/22/2024 10:00 AM EDT Office Visit [facility] [address] [place] [address] SawEthan grangern, OD [address] [place] [address] documented as of this encounter Visit Diagnoses Not on filedocumented in this encounter Care Teams Him Specialists Relationship Specialty Start Date End Date Esme Flores MD 230 [place] [address] PCP - General Family Medicine 02/19/17 documented as of this encounter
--- OUTSIDE RECORDS SUMMARY | 2024-10-07 11:12 | XMS_ITS | Encounter Summary ---
Author Organization [employer] Address [address] 7t [place] [address] Care Team Providers Care Planning Assistant Name Role Phone Esme Flores MD Primary Care Provider + Reason for Visit * Reason Comments Med Refill Encounter Details Date Type Department Care Team ([facility] st Contact Info) Description 05/16/2023 Refill [facility] [address] [place], [place] [phone] Esme Flores MD 230 [place] [address] Gastroesophageal reflux disease, unspecified whether esophagitis present [...] Description 12/22/2024 10:00 AM EDT Office Visit [facility] [address] [place] [address] Saw, Milagros, OD 230 [place] [address] documented as of this encounter Visit Diagnoses Diagnosis Gastroesophageal reflux disease, unspecified whether esophagitis present documented in this encounter Additional Health Concerns Assessment Noted Time PHQ-9 Depression Total Score: 15 023 1:05 PM EDT documented as of this encounter Care Teams Planning Assistant Relationship Specialty Start Date End Date Esme Flores MD 230 [place] [address] PCP - General Family Medicine 02/19/17 documented as of this encounter
--- OUTSIDE RECORDS SUMMARY | 2024-10-07 11:12 | XMS_ITS | Encounter Summary ---
Author Organization [employer] Address [address] [facility] 7t [place] [address] Care Team Providers Care Administrative Assistant Name Role Phone Esme Flores MD Primary Care Provider + Reason for Visit * Reason Comments Med Refill Encounter Details Date Type Department Care Team (Late st Contact Info) Description 07/23/2022 Refill [facility] [address] [place] [address] Jose Alejandro Maurer DDS [address] [place] [address] Pain (Primary Dx) Social History Tobacco Use Types Packs/Day Years [...] encounter Miscellaneous Notes * Telephone Encounter - Ca Ngo DDS - 07/23/2022 8:20 AM EST Approving, but needs appt for additional refills. documented in this encounter Plan of Treatment Upcoming Encounters Date Type Department Care Team (Late st Contact Info) Description 12/22/2024 10:00 AM EDT Office Visit [facility] [address] [place] [address] Milagros [place], OD 230 [place], [place] [phone] documented as of this encounter Visit Diagnoses Diagnosis Pain- Primary Generalized pain documented in this encounter Care Teams Administrative Assistant Relationship Specialty Start Date End Date Esme Flores MD 230 [place] [address] PCP - General Family Medicine 02/19/17 documented as of this encounter
--- OUTSIDE RECORDS SUMMARY | 2024-10-07 11:12 | XMS_ITS | Encounter Summary ---
Author Organization [employer] Address [address] 7[address] [place] [address] Care Team Providers Care Eyelet Machine Operator Name Role Phone Esme Flores MD Primary Care Provider + Reason for Visit * Reason Comments Med Refill Encounter Details Date Type Department Care Team ([facility] st Contact Info) Description 07/07/2023 Refill [facility] [address] [place], [place] [phone] Esme Flores MD [address] [place], [place] [phone] Polyneuropathy, unspecified Social History Tobacco Use Types Packs/Day Years [...] 12/22/2024 10:00 AM EDT Office Visit [facility] [address] [place] [address] Saw, Milagros, OD 230 [place] [address] documented as of this encounter Visit Diagnoses Diagnosis Polyneuropathy, unspecified documented in this encounter Additional Health Concerns Assessment Noted Time PHQ-9 Depression Total Score: 15 023 1:05 PM EDT documented as of this encounter Care Teams Eyelet Machine Operator Relationship Specialty Start Date End Date Esme Flores MD [address] [place] [address] PCP - General Family Medicine 02/19/17 documented as of this encounter
[2024-10-10 21:33] LABS: TS Negative Control Passed; TS Panel A 0; TS Panel B 0; TS Positive Control Passed; TSpotTB Negative (Negative)
== END 2024-10-07 10:19 | disposition home or self-care (01) ==
LOC: HO.HHCL 10:18
PROVIDERS: Visit Provider Internal Medicine
DX: E11.65 Type 2 diabetes mellitus with hyperglycemia (principal); L57.8 Other skin changes due to chronic exposure to nonionizing radiation
CPT/HCPCS: 36415; 86481

== ENCOUNTER → 2024-10-27 12:54 | Outpatient (BNV) | payer OTHER, SELFPAY | PROVIDERS: PCP Internal Medicine; Visit Provider Internal Medicine | DX: I49.9 Cardiac arrhythmia, unspecified (principal) | CPT/HCPCS: 93010 ==

== ENCOUNTER 2024-11-08 07:47 | Day surgery (SDC) | payer OTHER, SELFPAY ==
--- OUTSIDE RECORDS SUMMARY | 2024-10-08 10:07 | XMS_ITS | Encounter Summary ---
Author Organization [employer] Address [address] [place] [address] [place] [address] Care Team Providers Care Grader Marker Name Role Phone Esme Flores MD Primary Care Provider + Reason for Visit * Reason Onset Date Comments Chart prep 10/05/2024 Encounter Details Date Type Department Care Team ([facility] st Contact Info) Description 10/05/2024 Telephone [facility] [address] [place] [address] Esme Flores MD [address] [place] [address] Chart prep Social History Tobacco Use Types [...] Description 12/22/2024 10:00 AM EDT Office Visit [facility] [address] [place] [address] Saw, Milagros, OD 230 [place] [address] documented as of this encounter Visit Diagnoses Not on filedocumented in this encounter Additional Health Concerns Assessment Noted Time PHQ-9 Depression Total Score: 12 025 10:31 AM EST documented as of this encounter Care Teams Grader Marker Relationship Specialty Start Date End Date Esme Flores MD 230 [place] [address] PCP - General Family Medicine 02/19/17 documented as of this encounter
--- OUTSIDE RECORDS SUMMARY | 2024-10-08 10:07 | XMS_ITS | Encounter Summary ---
Author Organization [employer] Address [address] 7t [place] [address] Care Team Providers Care Master Steam Yacht Name Role Phone Esme Flores MD Primary [...] Description 12/22/2024 10:00 AM EDT Office Visit [facility] [address] [place], [place] [phone] Saw, Megan, OD 230 [place] [address] documented as of this encounter Visit Diagnoses Not on filedocumented in this encounter Additional Health Concerns Assessment Noted Time PHQ-9 Depression Total Score: 12 025 10:31 AM EST documented as of this encounter Care Teams Master Steam Yacht Relationship Specialty Start Date End Date Esme Flores MD 230 [place] [address] PCP - General Family Medicine 02/19/17 documented as of this encounter
--- OUTSIDE RECORDS SUMMARY | 2024-10-08 10:07 | XMS_ITS | Encounter Summary ---
Author Organization [employer] Address [address] 7[address] [place] [address] Care Team Providers Care Retail Support Specialist Name Role Phone Esme Flores MD Primary Care Provider + Reason for Visit * Reason Comments Diabetic Eye Exam Encounter Details Date Type Department Care Team ([facility] st Contact Info) Description 10/06/2024 10:30 AM EDT Office Visit [facility] [address] [place] [address] SawMilagros, OD 230 [place] [address] Diabetes type 2, no ocular involvement (CMS/HCC) [...] Description 12/22/2024 10:00 AM EDT Office Visit [facility] [address] [place], [place] [phone] Milagros [place], OD 230 [place] [address] documented as of this encounter Visit Diagnoses Diagnosis Diabetes type 2, no ocular involvement ([facility])- Primary Combined forms of age-related cataract of both eyes PVD (posterior vitreous detachment), both eyes Presbyopia of both eyes documented in this encounter Additional Health Concerns Assessment Noted Time PHQ-9 Depression Total Score: 12 025 10:31 AM EST documented as of this encounter Care Teams Retail Support Specialist Relationship Specialty Start Date End Date Esme Flores MD 230 [place] [address] PCP - General Family Medicine 02/19/17 documented as of this encounter
--- OUTSIDE RECORDS SUMMARY | 2024-10-08 10:07 | XMS_ITS | Encounter Summary ---
Author Organization [employer] Address [address] [place] [address] Care Team Providers Care Fish House Worker Name Role Phone Esme Flores MD Primary Care Provider + Reason for Visit * Reason Comments Diabetes Encounter Details Date Type Department Care Team ([facility] Contact Info) Description 10/07/2024 9:45 AM EDT Office Visit [facility] [address] [place] [address] Esme Flores MD 230 [place] [address] Type 2 diabetes mellitus with hyperglycemia, without long-term current use of insulin ([facility]) (Primary Dx); Screening for colon cancer; Preventative [...] tells me she had RSV immunization at [facility] last month as well (records not available from that immunization) . She last saw anesthesia director this week. 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 PAP smear N/A due to [facility] Mammogram UTD. 10/2024 Bone density [...] EVERY EVENING 90 tablet 3 sodium chloride ([place] Nasal Olema) 0.65 % nasal spray Administer 1 spray into each nostril if needed for congestion. 30 mL 12 traZODone (Desyrel) 50 MG tablet TAKE 1 TABLET BY MOUTH AT BEDTIME NEEDED FOR SLEEP 30 tablet 5 zoster vaccine, live, (Zostavax) [id number] UNT/0.65ML injection inject 0.65 milliliter by subcutaneous [...] at home. PAP smear N/A due to [facility] Mammogram UTD. 10/2024 Bone density [...] hyperglycemia, without long-term current use of insulin ([facility]) A1c has been at goal for over [...] EDT Office Visit [facility] [address] [place] [address] SawMilagros, OD [address] [place] [address] Scheduled Orders Name Type Priority Associated Diagnoses Orde r Schedule Cologuard?? colon cancer screening Lab Routine Screening for colon cancer Ordered: 10/07/2024 documented as of this encounter Procedures Procedure Name Priority Date/Time Associated Diagnosis Comments POCT GLUCOSE Routine 10/07/2024 9:32 AM EDT Type 2 diabetes mellitus with hyperglycemia, without long-term current use of insulin ([facility]) documented in this encounter Results * POCT Glucose (10/07/2024 9:32 AM EDT) Glucose Blood, POC 125 60 - 200 mg/dL QC Media Lot # [id number] Lot# Expiration Date Blood Capillary blood specimen / Unknown 10/07/2024 9:32 AM EDT Esme Flores MD POINT OF CARE TEST ENTER /EDIT ORDERABLES Final Result documented in this encounter Visit Diagnoses Diagnosis Type 2 diabetes mellitus with hyperglycemia, without long-term current use of insulin ([facility])- Primary Screening for colon cancer Special screening for malignant neoplasms, colon Preventative health care Routine general medical examination at a health care facility documented in this encounter Additional Health Concerns Assessment Noted Time PHQ-9 Depression Total Score: 12 09/08/ 025 10:31 AM EST documented as of this encounter Care Teams Fish House Worker Relationship Specialty Start Date End Date Esme Flores MD [address] [place] [address] PCP - General Family Medicine 02/19/17 documented as of this encounter
--- OUTSIDE RECORDS SUMMARY | 2024-10-08 10:07 | XMS_ITS | Encounter Summary ---
Author Organization [employer] Address [address] [place] [address] 7t [place] [address] Care Team Providers Care Maintenance Assistant Name Role Phone Esme Flores MD Primary Care Provider + Encounter Details Date Type Department Care Team (Latest Contact Info) Description 06/15/2019 Abstract [facility] CONVERSIONS Dental, Provider, DDS Social History Tobacco [...] Description 12/22/2024 10:00 AM EDT Office Visit [facility] [address] [place] [address] Saw, Milagros, OD 230 [place] [address] documented as of this encounter Visit Diagnoses Not on filedocumented in this encounter Care Teams Maintenance Assistant Relationship Specialty Start Date End Date Esme Flores MD 230 [place] [address] PCP - General Family Medicine 02/19/17 documented as of this encounter
--- OUTSIDE RECORDS SUMMARY | 2024-10-08 10:07 | XMS_ITS | Encounter Summary ---
Author Organization [employer] Address [address] 7t [place] [address] Care Team Providers Care Door Closer Name Role Phone Esme Flores MD [...] Description 12/22/2024 10:00 AM EDT Office Visit [facility] [address] [place], [place] [phone] Saw, Megan, OD 230 [place] [address] documented as of this encounter Visit Diagnoses Not on filedocumented in this encounter Additional Health Concerns Assessment Noted Time PHQ-9 Depression Total Score: 12 025 10:31 AM EST documented as of this encounter Care Teams Door Closer Relationship Specialty Start Date End Date Esme Flores MD 230 [place] [address] PCP - General Family Medicine 02/19/17 documented as of this encounter
--- OUTSIDE RECORDS SUMMARY | 2024-10-08 10:07 | XMS_ITS | Data Portability ---
Author Organization [facility] [employer] [place] in - [facility] Address [address] [place] [address] Care Team Providers Care Middle School Science Teacher Name Role Phone HIM [facility] Referring Provider [phone] Referring Provider Assessment No assessment recorded. Plan of Treatment Reminders Order Date Submit Date Provider Last Modified By Organization Details Last Modified Time Details Appointments None recorded. Lab rapid SARS CoV 2 Ag, QL IA, respiratory specimen 2024 025 [facility], [address] [place] [address], [id number] 5 15:54:01 rapid flu (A+B) 2024 025 [facility], [address] [place] [address], [id number] 5 15:54:02 Referral None recorded. Procedures None recorded. Surgeries None recorded. Imaging None recorded. Medication Orders prednisone 20 mg tablet [id number], [address] [place], [address], 5 12:14:34 azithromyci n 500 mg tablet [address]/[facility] [id number], [address] [place], [address], 5 12:14:34 azithromyci n 250 mg tablet 2024 025 [facility], [address] [place], [place], [id number], 5 11:53:44 prednisone 20 mg tablet 2024 025 [facility], [address] [place] [address], [id number], 5 11:53:44 Patient TargetsNo targets recorded. Patient InstructionsNo [...] Name and Address Organization Details Recorded Time 97815 egg extract food,medi cation Not available Not available Not available 08/08/2024 21823 15 RxNorm Not Available [employer] [facility] [employer] 5 09:43:01 Medications Name Sig Start Date Stop [...] and Address Organization Details Last Updated DateTime 4 157.48 cm 97 % 97 % 82 /min 16 /min 427097. 08 g 119 mm[Hg] 80 mm[Hg] Not Available [employer] [facility] [employer] 4 12:49:58 Date Recorded Body temperature Heart rate Oxygen saturation Oxygen saturation in Arterial blood by Pulse oximetry Respiratory rate Systolic blood pressure Diastolic blood pressure Provider Name and Address Organization Details Last Updated DateTime 5 98.2 [degF] 92 /min 100 % 100 % 16 /min 121 mm[Hg] 61 mm[Hg] Not Available [employer] [employer] 12:02:08 Social History None recorded. Functional Status None recorded. Mental Status None recorded. Family History Nothing Reported. Medical History No medical history recorded. Gynecological HistoryNo gynecological history recorded. Obstetrics History GPAL:G 0 P 0 0 0 0 Past Encounters Encounter ID Performer Location Encounter Start Date Encounter Closed Date Diagnosis/Indication Diagnosis SNOMED-CT Code Diagnosis ICD10 Code Diagnosis Note [id number] Gerald Jurado MD Main - [address] [phone] 09/08/2023 12:49:56 09/08/2023 18:54:15 Pain of left shoulder joint [id number] 7024702 M25.512 This 63-year-ol d female has a history of chronic left shoulder pain which has flared up today with no trauma. I suspect she has osteoarthr itis of the shoulder. I ordered Toradol 30 mg IM and Tylenol 500 mg tid prn pain. She will follow-up with her PCP. The patient agreed with this plan. [id number] Luis Alberto Magdaleno MD Main - [address] [phone] 08/08/2024 12:02:06 08/10/2024 16:59:20 Exacerbation of moderate persistent asthma [id number] J45.41 Patient w/symptoms of asthma exacerbati on. [...] Dinh Member ID Guarantor Name 09/08/2023 1 [facility] - DOS ON OR AFTER 2022 - DUAL ELIGIBLE - [facility] OPTIONS AND ONE CARE (MEDICARE REPLACEMENT/ADV ANTAGE - HMO) Bella Vance [id number] Bella Vance 08/08/2024 1 [facility] - DOS ON OR AFTER 2022 - DUAL ELIGIBLE - [facility] ONE CARE (MEDICARE REPLACEMENT/ADV ANTAGE - HMO) Bella Vance [id number] Bella Vance Notes Date Note Type Note [...] NEED FURTHER INFO Gerald Jurado MD [address] [facility], [place], [address], [employer] 09/08/2023 12:53:14 08/08/2024 text/html CRC Nurse Triage Notes (Jarod Ramsey - RN): Reason For Request: Patient is reporting flu [...] at 08/08/2024:43 Allergies Reviewed at 08/08/2024:43 Comments: Store Product Demonstrator verified the Pt.'s name//address and phone number. [...] S/S started on . Wellness check requested Senior Ux Developer Organization Information for Jefe Martinez MD [employer] Name: [facility] Address: [address] [place] [address], [place] [address], Shank Threader: Jhon Brock MD [facility] No.: [id number] Senior Ux Developer POC Test Results from [employer]fe monreal [facility]IO Rapid COVID antigen (11:58:20) COVID: - Rapid influenza antigen (11:58:20) Flu: - .................... .................... .................... .................... .................... .................... .................... . Senior Ux Developer Note From Jefe Martinez: This 64-year-old female [...] .................... .................... .................... .................... .................... .................... . [facility] Consulted: Jacob Magdaleno .................... .................... .................... .................... .................... .................... .................... . Disposition: Fulfilled Luis Alberto Magdaleno MD [address] [facility],[address], [place], [address], ANDRZEJ PEREZ 08/08/2024 14:51:24 OBGyn Episode No OBEpisode recorded.
--- OUTSIDE RECORDS SUMMARY | 2024-10-08 10:07 | XMS_ITS | Encounter Summary ---
Author Organization [employer] Address [address] [place] [address] 7[address] [place] [address] Care Team Providers Care Waffle Machine Operator Name Role Phone Esme Flores MD Primary Care Provider + Encounter Details Date Type Department Care Team (Latest Contact Info) Description 03/13/2021 Abstract [facility] CONVERSIONS Dental, Provider, DDS Social History Tobacco [...] Description 12/22/2024 10:00 AM EDT Office Visit [facility] [address] [place] [address] Saw, Milagros, OD [address] [place] [address] documented as of this encounter Visit Diagnoses Not on filedocumented in this encounter Care Teams Waffle Machine Operator Relationship Specialty Start Date End Date Esme Flores MD [address] [place] [address] PCP - General Family Medicine 02/19/17 documented as of this encounter
--- OUTSIDE RECORDS SUMMARY | 2024-10-08 10:07 | XMS_ITS | Encounter Summary ---
Author Organization [facility] [employer] [facility] Address [address] [place] [address] 7t [place] [address] Care Team Providers Care Informatics Consultant Name Role Phone Esme Flores MD Primary Care Provider + Encounter Details Date Type Department Care Team (Late st Contact Info) Description 06/20/2022 Orders Only [facility] [address] [place] [address] Jenny Anderson LPN Social History Tobacco Use [...] 10:00 AM EDT Office Visit [facility] [address] [place] [address] Saw, Milagros, OD [address] [place] [address] documented as of this encounter Visit Diagnoses Not on filedocumented in this encounter Care Teams Informatics Consultant Relationship Specialty Start Date End Date Esme Flores MD 230 [place] [address] PCP - General Family Medicine 02/19/17 documented as of this encounter
--- OUTSIDE RECORDS SUMMARY | 2024-10-08 10:07 | XMS_ITS | Clinical Summary ---
Author Organization [employer] Address [address] [facility] 7t [place] [address] Care Team Providers Care Air Cargo Specialist Supervisor Name Role Phone Esme Flores MD Primary Care Provider + Allergies No known active allergies Medications glucose blood (FREESTYLE LITE) test strip apply 1 by to skin route once daily Active zoster vaccine, live, (Zostavax) 86925 UNT/0.65ML injection inject 0.65 milliliter by subcutaneous [...] 120 tablet 1 024 Active sodium chloride (Joffre Nasal [place]) 0.65 % nasal sprayIndications: Viral upper respiratory [...] long-term current use of insulin ([facility]) TAKE 1 TABLET BY MOUTH EVERY MORNING [...] BEDTIME 30 tablet 5 024 2024 Discontinued Active Problems Problem Noted Date Diagnosed Date Screening for colon cancer 10/07/2024 Preventative health care 10/07/2024 Assessment & Plan (10/07/2024 10:35 AM EDT): Discussed with patient re increase fresh fruit and vegetable intake. Counseled re moderate exercise as tolerated, up to 20min/d Patient feels safe at home. PAP smear N/A due to [facility] Mammogram UTD. 10/2024 Bone density test [...] prn. Viral upper respiratory tract infection 01/01/20 Assessment & Plan (01/01/2024 3:04 PM EDT): [...] exercise, life style modifications, diet, referral to hr specialist. She will hold off on that [...] Description 10/07/2024 9:45 AM EDT Office Visit [facility] [address] [place] [address] Esme Flores MD Type 2 diabetes mellitus with hyperglycemia, without long-term current use of insulin (CMS/HCC) (Primary Dx); Screening for colon cancer; Preventative health care 10/07/2024 Travel 10/06/2024 10:30 AM EDT Office Visit [facility] OPTOMETRY [address] [place], [place] [phone] Saw, Milagros, OD Diabetes type 2, no ocular involvement (CMS/HCC) (Primary Dx); Combined forms of age-related cataract of both eyes; PVD (posterior vitreous detachment), both eyes; Presbyopia of both eyes 10/06/2024 Travel 10/05/2024 Telephone [facility] [address] [place] [address] Esme Flores MD Chart prep 09/28/2024 Patient Outreach [facility] [place] [address] Esme Flores MD Pre-visit Planning (SDOH screening completed on 09/08/2024) 09/18/2024 Refill [facility] [place] [address] Esme Flores MD 09/08/2024 10:15 AM EST Office Visit [facility] [place] [address] Esme Flores MD Type 2 diabetes mellitus with hyperglycemia, without long-term current use of insulin (CMS/HCC) (Primary Dx); Bipolar affective disorder, remission status unspecified (CMS/HCC); Class 3 severe obesity due to excess calories with serious comorbidity and body mass index (BMI) of 45.0 to 49.9 in adult (CMS/HCC); Dry skin dermatitis; Dietary counseling; Exercise counseling; Decreased radial pulse 09/08/2024 Travel 08/31/2024 Telephone [facility] [address] [place] [address] Esme Flores MD Chart prep 08/27/2024 Patient Outreach [facility] [place] [address] Esme Flores MD Pre-visit Planning ((Unable to reach for PVP screening, LVM)) 08/24/2024 Travel 08/17/2024 10:30 AM EST Procedure Visit [facility] [place] [place] [address] Marta Valencia MD Chronic right shoulder pain (Primary Dx) 08/17/2024 Travel 08/06/2024 Refill [facility] [place] [address] Esme Flores MD HTN (hypertension), benign 07/29/2024 Refill [facility] [place] [address] Esme Flores MD Type 2 diabetes mellitus with diabetic polyneuropathy, with long-term current use of insulin (CMS/HCC) 07/20/2024 10:30 AM EST Procedure Visit [facility] [place] [place] [address] Marta Valencia MD Adhesive capsulitis of left [...] Description 12/22/2024 10:00 AM EDT Office Visit [facility] OPTOMETRY [address] [place], [place] [phone] Milagros [place], OD [address] [place] [address] Health Maintenance Due Date Last Done Comments [...] Additional history exists Dental X-Ray: Bitewings 04/05/2022 04/04/20, 03/13/2021, 06/15/2019, Additional history exists Dental X-Ray: [...] history exists Depression Screening 09/08/2025 09/08/2024, 09/09/19 SDOH Screening 09/08/2025 09/08/2024 Tobacco Screening 10/07/2025 10/07/2024 Eye Exam 10/06/2026 10/06/2024, 04/08/2024, 10/06/2024, Additional history exists DTaP/Tdap/Td Vaccines (3 [...] long-term current use of insulin ([facility]) POCT GLYCATED HEMOGLOBIN, TOTAL Routine 09/08/2024 10:27 AM EST Type 2 diabetes mellitus with hyperglycemia, without long-term current use of insulin ([facility]) POCT GLUCOSE Routine 09/08/2024 10:27 AM EST Type 2 diabetes mellitus with hyperglycemia, without long-term current use of insulin ([facility]) LA ARTHROCENTESIS ASPIR&/INJ MAJOR JT/BURSA W/O US Routine 08/17/2024 9:54 AM EST Chronic right shoulder pain LA ARTHROCENTESIS ASPIR&/INJ MAJOR JT/BURSA W/O US Routine [...] - 200 mg/dL QC Media Lot # [id number] Lot# Expiration Date Blood Capillary blood specimen / Unknown 10/07/2024 9:32 AM EDT Esme Flores MD POINT OF CARE TEST ENTER /EDIT ORDERABLES Final Result * POCT HGB A1C (09/08/2024 10:27 AM EST) Hemoglobin A1C 5.3 4.0 - 6.0 % QC Media Lot # [id number] Lot# Expiration Date [id number] Blood 09/08/2024 10:2 7 AM EST us Esme Flores MD POINT OF CARE TEST ENTER /EDIT ORDERABLES Final Result * LA ARTHROCENTESIS ASPIR&/INJ MAJOR JT/BURSA W/O US (08/17/2024 [...] yes ?Risks discussed: ??Pain ??Alternatives discussed: ??Referral [place] protocol: ??Procedure explained and questions answered to [...] IN CLINIC/BEDSIDE ORDERABLES Fin al Result * LA ARTHROCENTESIS ASPIR&/INJ MAJOR JT/BURSA W/O US (07/20/2024 [...] yes ?Risks discussed: ??Pain ??Alternatives discussed: ??Referral [place] protocol: ??Procedure explained and questions answered to [...] EDT Narrative 03/11/2024 3:54 PM EDT ? [facility] [place] ? [address] ?[place] [address] ? Mammography Report ? Signed ? Patient: [place],Bella ?MR#: [id number] ?? [id number] ? : 1960 ?Acct:[id number] ? Age/Sex: 63 / F ?ADM Date: 08/13/24 ? Loc: HO.MAMMO ? Attending Dr: Esme Flores MD ? Ordering Physician: Esme Flores MD ?Results: 1Ne ?? gative ? Date of Service: 02/17/24 ?Follow Up: 1 Year From Orig ?? inal Mammogram ? Procedure(s): MM tomosynthesis screening BI ?? Accession Number(s): [id number] ? cc: Esme Flores MD ? EXAMINATION: [...] DD/ 1056 ? TD/TT: 02/17/24 1114 ? Kitchen Worker: ? Procedure Note Shaun, Image - 03/11/2024 Sorin [facility] [address] [place] [address] Mammography Report Signed Patient: Bella VanceMR#: [id number] : 8Acct:[id number] Age/Sex: 63 / FADM Date: 02/17/24 Loc: HO.MAMMO Attending Dr: Esme Flores MD Ordering Physician: Esme Flores MDResults: 1Ne gative Date of Service: 02/17/24Follow Up: 1 Year From Orig inal Mammogram Procedure(s): MM tomosynthesis screening BI Accession Number(s): [id number] cc: Esme Flores MD EXAMINATION: MM SCREENING [...] 03/11/24 1551 DD/ 1056 TD/TT: 02/17/24 1114 Kitchen Worker: us Esme Flores MD IMG BI PROCEDURES Edited Result - Final * Lipid Panel with Reflex to Direct LDL (12/16/2023 12:08 PM EDT) Triglycerides 50 <150 mg/dL [facility] Comment:Desirable Triglyceri de: less than 150 mg/dLBorderline High Triglyceride 150-199 mg/dLHigh Triglyceride: 200-499 mg/dLVery High Triglyceride: greater than or equal to 5OO mg/dL Cholesterol 121 <200 mg/dL [facility] Comment:Desirable Cholestero l: less than 200 mg/dLBorderline High Cholesterol: 200-239 mg/dLHigh Cholesterol: greater than 239 mg/dL LDL Cholesterol Calculated 69 <100 mg/dL [facility] Comment:Desirable LDL: less than 100 mg/dLNear Optimal/Above Optimal LDL: 110- 129 mg/dLBorderline High LDL: 130-159 mg/dLHigh LDL: 160-189 mg/dLVery High LDL: greater than or equal to 190 mg/dL HDL Cholesterol 42 >40 mg/dL [facility] Comment:Desirable HDL: great er than 40 mg/dL Note: This HDL assay may give artificially low results in patients with liver disease. Blood 12/16/2023 12:0 8 PM EDT 12/16/2023 1:30 PM EDT us Esme Flores MD LAB BLOOD ORDERABLES Fin al Result Performing Organization Address [facility] de Phone Number [facility] [address] [place] [phone] * Albumin, Random Urine W/Creatinine (12/16/2023 12:08 PM EDT) Creatinine, Urine 177.89 mg/dL [facility] Microalbumin Urine 9.0 mg/L [facility] Microalbum Creatinine Ratio Ur 5.0 <30 ug/mg cr [facility] Comment:Albumin/Creatinine R atio Reference Ranges: Normal: < 30 ug/mg creatinine Microalbuminuria: 30 - 300 ug/mg creatinineClinical Albuminuria: > 300 ug/mg creatinine Urine (Urine, Random) 12/16/2023 12:08 PM EDT 12/16/2023 1:33 PM EDT Esme Flores MD LAB URINE ORDERABLES Fin al Result Performing Organization Address [facility] de Phone Number [facility] [address] [place] [phone] * Hepatitis C Antibody with Reflex to HCV, RNA, Quantitative, Real-Time PCR (08/22/2022 12:20 PM EST) Hepatitis C Antibody NON-REACT HERBERT NON-REACT HERBERT [facility] [place] [facility] Index 0.10 <1.00 [facility] Comment: HCV antibody was non-reactive. There is no laboratory evidence of HCV infection. In most cases, no further action is required. However, if recent HCV exposure is suspected, a test for HCV RNA (test code 83029) is suggested. For additional information please refer to http://education.worldhistoryproject/faq/HAP13u1 (This link is being provided for informational/ educational purposes only.) 08/22/2022 12:2 0 PM EST 08/22/2022 12:21 PM EST Narrative [facility] - 08/28/2022 11:02 PM EST FASTING:NO FASTING: NO Esme Flores MD LAB BLOOD ORDERABLES Fin al Result [facility] [address] [facility], [place] [address] [facility] [place] [facility] [address] , ([address]) [place] [address] from Last 3 Months or Most Recently Relevant to Health Maintenance Insurance [facility] MED[facility] STAND ADULT [facility] [place] [address] Care Teams Air Cargo Specialist Supervisor Relationship Specialty Start Date End Date Esme Flores MD [address] [place] [address] PCP - General Family Medicine 02/19/17
--- OUTSIDE RECORDS SUMMARY | 2024-10-08 10:08 | XMS_ITS | Encounter Summary ---
Author Organization [employer] Address [address] [facility] [address] 7t [place] [address] Care Team Providers Care Property Manager Name Role Phone Esme Flores MD Primary Care Provider + Reason for Visit * Reason Comments Med Refill Encounter Details Date Type Department Care Team ([facility] st Contact Info) Description 05/14/2023 Refill [facility] PEDS [address] [place], [place] [phone] Esme Flores MD [address] [place] [address] Gastroesophageal reflux disease, unspecified whether esophagitis present [...] Description 12/22/2024 10:00 AM EDT Office Visit [facility] OPTOMETRY [address] [place] [address] Saw, Milagros, OD [address] [place] [address] documented as of this encounter Visit Diagnoses Diagnosis Gastroesophageal reflux disease, unspecified whether esophagitis present documented in this encounter Additional Health Concerns Assessment Noted Time PHQ-9 Depression Total Score: 15 023 1:05 PM EDT documented as of this encounter Care Teams Property Manager Relationship Specialty Start Date End Date Esme Flores MD [address] [place] [address] PCP - General Family Medicine 02/19/17 documented as of this encounter
--- OUTSIDE RECORDS SUMMARY | 2024-10-08 10:08 | XMS_ITS | Encounter Summary ---
Author Organization [employer] Address [address] [facility] [address] 7t [place] [address] Care Team Providers Care Local Government Legislator Name Role Phone Esme Flores MD Primary Care Provider + Reason for Visit * Reason Onset Date Comments Appointment Request 12/17/2023 Encounter Details Date Type Department Care Team ([facility] st Contact Info) Description 12/17/2023 Telephone [facility] [address] [place] [address] Esme Flores MD [address] [place] [address] Appointment Request Social History Tobacco Use Types [...] AM EDT Tc from pt requesting status telephonic case manager * Telephone Encounter - Cecily Delgado - 12/17/2023 11:15 AM EDT Tc from pt requesting Cortisone shot appt with Dr Valencia documented in this encounter Plan of Treatment Upcoming Encounters Date Type Department Care Team (Late st Contact Info) Description 12/22/2024 10:00 AM EDT Office Visit [facility] OPTOMETRY [address] [place] [address] Saw, Milagros, OD [address] [place] [address] documented as of this encounter Visit Diagnoses Not on filedocumented in this encounter Additional Health Concerns Assessment Noted Time PHQ-9 Depression Total Score: 15 023 1:05 PM EDT documented as of this encounter Care Teams Local Government Legislator Relationship Specialty Start Date End Date Esme Flores MD [address] [place] [address] PCP - General Family Medicine 02/19/17 documented as of this encounter
--- OUTSIDE RECORDS SUMMARY | 2024-10-08 10:08 | XMS_ITS | Encounter Summary ---
Author Organization [employer] Address [address] [facility] 7t [place] [address] Care Team Providers Care Oil Well Gun Perforator Operator Name Role Phone Esme Flores MD Primary Care Provider + Reason for Visit * Reason Comments Med Refill Encounter Details Date Type Department Care Team (Late st Contact Info) Description 07/23/2022 Refill [facility] [address] [place] [address] Jose Alejandro Maurer DDS [address] [place] [address] Pain (Primary Dx) Social History Tobacco Use [...] Description 12/22/2024 10:00 AM EDT Office Visit [facility] OPTOMETRY [address] [place] [address] Milagros Spring, OD [address] [place], [place] [phone] documented as of this encounter Visit Diagnoses Diagnosis Pain- Primary Generalized pain documented in this encounter Care Teams Oil Well Gun Perforator Operator Relationship Specialty Start Date End Date Esme Flores MD [address] [place] [address] PCP - General Family Medicine 02/19/17 documented as of this encounter
--- OUTSIDE RECORDS SUMMARY | 2024-10-08 10:08 | XMS_ITS | Encounter Summary ---
Author Organization [employer] Address [address] [place] [address] 7t [place] [address] Care Team Providers Care Ballistic Expert Name Role Phone Esme Flores MD Primary Care Provider + Encounter Details Date Type Department Care Team (Late st Contact Info) Description 09/30/2022 Orders Only [facility] [address] [place] [address] Catia Jarrell LPN Social History Tobacco Use [...] Office Visit [facility] OPTOMETRY [address] [place] [address] SawEthan grangern, OD [address] [place] [address] documented as of this encounter Visit Diagnoses Not on filedocumented in this encounter Care Teams Ballistic Expert Relationship Specialty Start Date End Date Esme Flores MD [address] [place] [address] PCP - General Family Medicine 02/19/17 documented as of this encounter
--- OUTSIDE RECORDS SUMMARY | 2024-10-08 10:08 | XMS_ITS | Encounter Summary ---
Author Organization [employer] Address [address] [place] [address] Care Team Providers Care Application Developer Manager Name Role Phone Esme Flores MD Primary Care Provider + Reason for Visit * Reason Comments Med Refill Encounter Details Date Type Department Care Team ([facility] st Contact Info) Description 07/07/2023 Refill [facility] [address] [place], [place] [phone] Esme Flores MD [address] [place], [place] [phone] Polyneuropathy, unspecified Social History Tobacco Use Types [...] Office Visit [facility] OPTOMETRY [address] [place] [address] Saw, Milagros, OD [address] [place] [address] documented as of this encounter Visit Diagnoses Diagnosis Polyneuropathy, unspecified documented in this encounter Additional Health Concerns Assessment Noted Time PHQ-9 Depression Total Score: 15 023 1:05 PM EDT documented as of this encounter Care Teams Application Developer Manager Relationship Specialty Start Date End Date Esme Flores MD [address] [place] [address] PCP - General Family Medicine 02/19/17 documented as of this encounter
--- OUTSIDE RECORDS SUMMARY | 2024-10-08 10:08 | XMS_ITS | Encounter Summary ---
Author Organization [employer] Address [address] [place] [address] Care Team Providers Care Budget Examiner Name Role Phone Esme Flores MD Primary Care Provider + Encounter Details Date Type Department Care Team ([facility] st Contact Info) Description 03/25/2024 Telephone [facility] [address] [place] [address] Esme Flores MD [address] [place] [address] Social History Tobacco Use Types Packs/Day Years [...] Description 12/22/2024 10:00 AM EDT Office Visit [facility] [address] [place], [place] [phone] Saw, Milagros, OD [address] [place] [address] documented as of this encounter Visit Diagnoses Not on filedocumented in this encounter Additional Health Concerns Assessment Noted Time PHQ-9 Depression Total Score: 15 023 1:05 PM EDT documented as of this encounter Care Teams Budget Examiner Relationship Specialty Start Date End Date Esme Flores MD [address] [place] [address] PCP - General Family Medicine 02/19/17 documented as of this encounter
--- OUTSIDE RECORDS SUMMARY | 2024-10-08 10:08 | XMS_ITS | Encounter Summary ---
Author Organization [employer] Address [address] [facility] [address] 7t [place] [address] Care Team Providers Care Stonecutter Name Role Phone Esme Flores MD Primary Care Provider + Reason for Visit * Reason Comments Med Refill Encounter Details Date Type Department Care Team ([facility] st Contact Info) Description 05/16/2023 Refill [facility] MED & PEDS [address] [place], [place] [phone] Esme Flores MD [address] [place] [address] Gastroesophageal reflux disease, unspecified whether esophagitis present [...] AM EDT Office Visit [facility] OPTOMETRY [address] [place] [address] Saw, Milagros, OD [address] [place] [address] documented as of this encounter Visit Diagnoses Diagnosis Gastroesophageal reflux disease, unspecified whether esophagitis present documented in this encounter Additional Health Concerns Assessment Noted Time PHQ-9 Depression Total Score: 15 023 1:05 PM EDT documented as of this encounter Care Teams Stonecutter Relationship Specialty Start Date End Date Esme Flores MD [address] [place] [address] PCP - General Family Medicine 02/19/17 documented as of this encounter
--- NOTE | 2024-10-27 | ECG_ITS ---
Test Reason : preop Blood Pressure : */* mmHG Vent. Rate : 94 BPM Atrial Rate : 94 BPM P-R Int : 184 ms QRS Dur : 92 ms QT Int : 346 ms P-R-T Axes : 35 -21 33 degrees QTcB Int : 432 ms Normal sinus rhythm with sinus arrhythmia Inferior infarct , age undetermined Abnormal ECG When compared with ECG of 21-Feb-2020 17:40, No significant change was found Referred By: Marisabel Rubio Electronically Signed By: STANISLAV GARCIA
[2024-10-27 12:20] VITALS: BP 131/70; PULSE 89; RESP 18; O2SAT 97; BMI 45.7
--- NOTE | 2024-10-27 12:39 | P.CONAN_ITS ---
Documented by User: Marisabel Rubio NP 10/28/24 12:00 HPI - Anesthesia Eval Consult details Narrative: 64yo F for Left Shoulder Arthroscopy,distal clavicle excision,acromioplasty,capsular, 11/08/24 No recent illness No CP/SOB with limited activity NAZ: No CPAP Asthma: has not needed albuterol for months - controlled on singular DM: A1C <6% 09/2024, recently d/c'd metformin PMFSH Active Problems Active Problems: All Active Problems Impingement syndrome of left shoulder (Acute) Asthma (Acute) HTN (hypertension) (Acute) Diabetes (Acute) Encounter for screening colonoscopy (Acute) Past Medical History Medical History Depression Bipolar disorder Arthritis Urinary, incontinence, stress female NAZ (obstructive sleep apnea) Hypercholesterolemia Vertigo Diabetes HTN (hypertension) Asthma Family History Family history of problems with anesthesia: No Surgical History Surgical History Hx of external ear surgery Hx of foot surgery History of total abdominal hysterectomy and bilateral salpingo-oophorectomy History of Problems with Anesthesia: No Social History Social History Household Members: Family Are you a primary behavioral health care manager to a significant other at home: No Do you presently have visiting nurse or other home services: Yes ([employer]) Alcohol intake: current Alcohol intake frequency: does not drink Comment: uses walker when out in public-does not use at home Patient Tobacco Use Status: Never used Tobacco Use of substances other than those prescribed or required for medical reasons: No Have you been hit, kicked, punched, or otherwise hurt by someone within the past year? If so, by whom?: No Spiritual Healthcare Practices: no Adventist Healthcare Practices: no-Jehovah'S Witness Cultural Healthcare Practices: no Are you DNR?: No Advance Directives Information Provided: Yes (as above noted) Advance Directives on File: No FDLMP: n/a Poor oral hygiene: No Meds Allergies Allergy/AdvReac Type Severity Reaction Status Date / Time egg [EGG] Allergy Intermediate Nausea and Verified 11/08/24 08:31 Vomiting (can have in recipes, just not alone) Home Medications ?Medication ?Instructions ?Recorded ?Confirmed ?Last Taken ?Type divalproex 250 mg tablet,delayed 250 mg PO BID 09/26/22 11/08/24 11/08/24 History release (Depakote) docusate sodium 100 mg capsule 100 mg PO DAILY PRN Constipation 09/26/22 11/08/24 Unknown History (Colace) hydrochlorothiazide 25 mg tablet 25 mg PO DAILY 09/26/22 11/08/24 Unknown His tory omeprazole 20 mg capsule,delayed 20 mg PO DAILY 09/26/22 11/08/24 Unknown History release albuterol sulfate 90 mcg/actuation 2 puff inhalation Q4-6H PRN 10/26/24 11/08/24 Unknown History aerosol inhaler Shortness Of Breath Or Wheezing aspirin 81 mg tablet,delayed 81 mg PO DAILY 10/27/24 11/08/24 11/04/24 History release cetirizine 10 mg tablet 10 mg PO DAILY PRN Allergy Symptoms 10/27/24 11/08/24 Unknown History cyclobenzaprine 10 mg tablet 10 mg PO BEDTIME 10/27/24 11/08/24 Unknown History dimenhydrinate 50 mg tablet 50 mg PO BID PRN Vertigo 10/27/24 11/08/24 Unknown History (Driminate) lisinopril 40 mg tablet 40 mg PO QAM 10/27/24 11/08/24 Unknown History meloxicam 7.5 mg tablet 7.5 mg PO BID 10/27/24 11/08/24 11/01/24 History montelukast 10 mg tablet 10 mg PO BEDTIME 10/27/24 11/08/24 Unknown History simvastatin 20 mg tablet 20 mg PO BEDTIME 10/27/24 11/08/24 Unknown History trazodone 50 mg tablet 50 mg PO BEDTIME PRN Insomnia 10/27/24 11/08/24 Unknown History Exam Height,Weight and Vital Signs: Height 5 ft 2 in Weight 113.3 kg Last Vital Signs Pulse 89 10/27/24 12:20 Resp 18 10/27/24 12:20 BP 131/70 10/27/24 12:20 Pulse Ox 97 10/27/24 12:20 O2 Del Method Room Air 10/27/24 12:20 Pertinent Lab Results Pertinent Lab Results: Lab Results 10/27/24 Range/Units 12:59 WBC 8.8 (4.8-10.8) X10*3/uL RBC 3.63 L (4.20-5.50) X10*6/uL Hgb 11.3 L (12.0-16.0) g/dl Hct 34.8 L (37.0-47.0) % MCV 95.9 (80.0-98.0) fL MCH 31.1 (27.0-33.0) pg MCHC 32.5 (31.0-35.0) g/dl RDW 15.3 (11.0-16.0) % Plt Count 362 (160-400) X10*3/uL MPV 9.8 (9.4-12.3) fL Absolute Nucleated RBC 0.000 (0.0-0.012) X10*3/uL Nucleated RBC % (auto) 0.0 (0.0-0.2) /100WBC Sodium 143 (135-145) mmol/L Potassium 3.9 (3.3-5.1) mmol/L Chloride 106 (96-108) mmol/L Carbon Dioxide 28 (22-29) mmol/L Anion Gap 13 (12-20) BUN 15 (9-16) mg/dL Creatinine 0.70 (0.5-1.4) mg/dL Estim Creat Clear Calc 94.0 Estimated GFR > 60 Random Glucose 94 (60-115) mg/dL Calcium 9.6 (8.4-10.2) mg/dL Narrative Narrative: EKG 10/2024 Vent. Rate : 94 BPM Atrial Rate : 94 BPM P-R Int : 184 ms QRS Dur : 92 ms QT Int : 346 ms P-R-T Axes : 35 -21 33 degrees QTcB Int : 432 ms Normal sinus rhythm with sinus arrhythmia Inferior infarct , age undetermined Abnormal ECG When compared with ECG of 21-Feb-2020 17:40, No significant change was found Airway Mallampati Class: III TM Dist: >3cm Neck ROM: Full Loose/Missing/Broken Teeth: No Heart: RRR Lungs: CTAB Assessment and Plan Assessment Anesthesia Assessment: Anesthesia Plan Discussed and PAT Visit Final Anesthetic Review Family History of Problems with Anesthesia: No History of Problems with Anesthesia: No Documented by User: Dominique Farris MD 11/08/24 09:41 [facility] Past Medical History Medical History Depression Bipolar disorder Arthritis Urinary, incontinence, stress female NAZ (obstructive sleep apnea) Hypercholesterolemia Vertigo Diabetes HTN (hypertension) Asthma Surgical History Surgical History Hx of external ear surgery Hx of foot surgery History of total abdominal hysterectomy and bilateral salpingo-oophorectomy Social History Social History Household Members: Family Are you a primary behavioral health care manager to a significant other at home: No Do you presently have visiting nurse or other home services: Yes ([employer]ER) Alcohol intake: current Alcohol intake frequency: does not drink Comment: uses walker when out in public-does not use at home Patient Tobacco Use Status: Never used Tobacco Use of substances other than those prescribed or required for medical reasons: No Have you been hit, kicked, punched, or otherwise hurt by someone within the past year? If so, by whom?: No Spiritual Healthcare Practices: no Adventist Healthcare Practices: no-Jehovah'S Witness Cultural Healthcare Practices: no Are you DNR?: No Advance Directives Information Provided: Yes (as above noted) Advance Directives on File: No FDLMP: n/a Poor oral hygiene: No Meds Allergies Allergy/AdvReac Type Severity Reaction Status Date / Time egg [EGG] Allergy Intermediate Nausea and Verified 11/08/24 08:31 Vomiting (can have in recipes, just not alone) Home Medications ?Medication ?Instructions ?Recorded ?Confirmed ?Last Taken ?Type divalproex 250 mg tablet,delayed 250 mg PO BID 09/26/22 11/08/24 11/08/24 History release (Depakote) docusate sodium 100 mg capsule 100 mg PO DAILY PRN Constipation 09/26/22 11/08/24 Unknown History (Colace) hydrochlorothiazide 25 mg tablet 25 mg PO DAILY 09/26/22 11/08/24 Unknown History omeprazole 20 mg capsule,delayed 20 mg PO DAILY 09/26/22 11/08/24 Unknown History release albuterol sulfate 90 mcg/actuation 2 puff inhalation Q4-6H PRN 10/26/24 11/08/24 Unknown History aerosol inhaler Shortness Of Breath Or Wheezing aspirin 81 mg tablet,delayed 81 mg PO DAILY 10/27/24 11/08/24 11/04/24 History release cetirizine 10 mg tablet 10 mg PO DAILY PRN Allergy Symptoms 10/27/24 11/08/24 Unknown History cyclobenzaprine 10 mg tablet 10 mg PO BEDTIME 10/27/24 11/08/24 Unknown History dimenhydrinate 50 mg tablet 50 mg PO BID PRN Vertigo 10/27/24 11/08/24 Unknown History (Driminate) lisinopril 40 mg tablet 40 mg PO QAM 10/27/24 11/08/24 Unknown History meloxicam 7.5 mg tablet 7.5 mg PO BID 10/27/24 11/08/24 11/01/24 History montelukast 10 mg tablet 10 mg PO BEDTIME 10/27/24 11/08/24 Unknown History simvastatin 20 mg tablet 20 mg PO BEDTIME 10/27/24 11/08/24 Unknown History trazodone 50 mg tablet 50 mg PO BEDTIME PRN Insomnia 10/27/24 11/08/24 Unknown History Assessment and Plan Final Anesthetic Review NPO: Yes ASA Class: III Final Preanesthetic Review: No Changes in Pt Med Stat, Meds/Allgs Chart Reviewed and Consent Obtained/Reviewed Patient Risk: Intermediate Procedure Risk: Intermediate Anesthetic Plan Anesthetic Plan: GA Disposition: Standard PACU
[2024-10-27 13:45] LABS: Hematocrit 34.8 % (37.0-47.0); Hemoglobin 11.3 g/dl (12.0-16.0); Mean Corpuscular HGB Conc 32.5 g/dl (31.0-35.0); Mean Corpuscular Hemoglobin 31.1 pg (27.0-33.0); Mean Corpuscular Volume 95.9 fL (80.0-98.0); Mean Platelet Volume 9.8 fL (9.4-12.3); Platelet Count 362 X10*3/uL (160-400); Red Blood Count 3.63 X10*6/uL (4.20-5.50); Red Cell Distribution Width 15.3 % (11.0-16.0); White Blood Count 8.8 X10*3/uL (4.8-10.8)
[2024-10-27 13:59] LABS: Anion Gap 13 (12-20); Blood Urea Nitrogen 15 mg/dL (9-16); Calcium 9.6 mg/dL (8.4-10.2); Carbon Dioxide 28 mmol/L (22-29); Chloride 106 mmol/L (96-108); Estimated Glomerular Filt Rate > 60; Glucose Random 94 mg/dL (60-115); Potassium 3.9 mmol/L (3.3-5.1); Sodium 143 mmol/L (135-145)
[2024-11-08 08:51] VITALS: BP 104/68; PULSE 100; RESP 18; TEMP 36.6; O2SAT 95
[2024-11-08] MEDS: Lactated Ringers 1,000 ML 100 ML IVCONT (09:08)
[2024-11-08 09:09] LABS: Glucose, Whole Blood 140 mg/dL (60-115)
[2024-11-08] MEDS: ceFAZolin Sodium/Dextrose,Iso 2 GM/50 ML PIGGYBACK IV (10:25)
[2024-11-08] MEDS: Acetaminophen 1,000 MG/100 ML PIGGYBACK 400 MG IV (10:50)
[2024-11-08 11:40] VITALS: BP 82/62; PULSE 89; RESP 16; TEMP 36.6; O2SAT 91
[2024-11-08 11:45] VITALS: BP 106/63; PULSE 89; RESP 16; O2SAT 92
[2024-11-08 11:50] VITALS: BP 89/42; PULSE 83; RESP 16; O2SAT 95
[2024-11-08] MEDS: oxyCODONE HCl Immed Release 5 MG TABLET PO (11:54)
[2024-11-08] MEDS: cefTRIAXone sodium 1 GM VIAL IVPUSH (11:54)
--- NOTE | 2024-11-08 11:54 | PM.OP ---
Brief Operative Note Date of Service: 11/08/24 Pre-op diagnosis: Left shoulder impingement syndrome, left shoulder acromioclavicular joint arthritis, left shoulder glenohumeral joint arthritis, left shoulder adhesive capsulitis Post-op diagnosis: same Procedure: Left shoulder arthroscopic distal clavicle excision, left shoulder arthroscopic acromioplasty, left shoulder arthroscopic glenohumeral joint debridement, left shoulder arthroscopic capsular release, left shoulder manipulation under anesthesia Implants: none Surgeon: Leonard Monroe MD Anesthesia: GETA and regional Was an Molded Candles Wicker used for this Procedure?: No Estimated blood loss (mL): 10 Pathology: none sent Condition: stable Disposition: PACU
[2024-11-08 11:55] VITALS: BP 118/68; PULSE 84; RESP 16; O2SAT 96
--- NOTE | 2024-11-08 11:55 | P.OP_ITS ---
Operative Note Operative Note Date of Service: 11/08/24 Narrative: After the patient was identified as Bella Vance and her left shoulder was initialed by myself the patient was brought to the holding area where a left shoulder interscalene regional block was performed by the anesthesiologist in routine fashion. The patient was then brought to the operating room where general anesthesia was induced by the anesthesiologist in routine fashion. The patient was given 2 g of IV Ancef preoperatively for infection prophylaxis. Examination under anesthesia of the patient's left shoulder showed decreased range of motion when compared to the right shoulder. The patient's left should er had forward flexion to 130 degrees compared to 170 degrees, external rotation to 30 degrees compared to 60 degrees, and internal rotation to 40 degrees compared to 50 degrees. The patient was gently positioned in the beach chair position with all bony prominences well padded. The patient's left shoulder region and upper extremity were prepped and draped in sterile fashion. A formal time-out was completed. A #11 scalpel blade was used to make a posterior portal 2 cm inferior and 1 cm medial to the posterolateral corner of the acromion. Blunt trocar technique was used to enter the glenohumeral joint in routine fashion. An anterior portal was made just lateral to the coracoid process after proper positioning was confirmed using a spinal needle. Diagnostic arthroscopy showed diffuse grade 2 and 3 degenerative changes of the glenoid and humeral head articular surfaces. The articular surfaces were made smooth using the arthroscopic shaver. There was no evidence of rotator cuff tearing. There was no evidence of injury to the biceps tendon or its insertion onto the glenoid. There was inflammation of the anterior joint capsule consistent with adhesive capsulitis. The ArthroCare Wand was then used to perform an anterior capsular release between the inferior border of the biceps tendon and the superior border of the subscapularis tendon. The arthroscope was then placed from the posterior portal into the subacromial space. A lateral portal was made 2 fingerbreadths lateral to the anterior lateral corner of the acromion. The ArthroCare Wand was used to ablate soft tissues along the undersurface of the acromion as well as to excise the coracoacromial ligament. There was a sharp spur along the undersurface of the acromion which was removed using the hooded bur. The arthroscope was then placed into the lateral portal and the acromioplasty was completed with the bur in the posterior portal using the posterior aspect of the acromion as a cutting block. The ArthroCare Wand was then brought in through the anterior portal and was used to ablate soft tissues along the acromioclavicular joint and distal clavicle. The posterior and superior ligamentous structures were left intact. A distal clavicle excision of 8 mm was performed using the hooded bur. Any remaining bursal tissue was removed using the arthroscopic shaver. The subacromial space was irrigated and then drained. All arthroscopic instruments were removed. A gentle manipulation under anesthesia was then performed. The 3 portals were closed with 3-0 nylon interrupted suture. The subacromial space was injected with Marcaine. Dry sterile dressing was placed over all incisions. The patient's left upper extremity was placed into a sling. The patient was awoken and extubated in the operating room. The patient was transferred to the recovery room in stable condition.
[2024-11-08] MEDS: ondansetron HCL 4 MG/2 ML VIAL IVPUSH (12:04)
[2024-11-08 12:10] VITALS: BP 122/59; PULSE 82; RESP 16; TEMP 36.9; O2SAT 95
== END 2024-11-08 12:50 | disposition home or self-care (01) ==
PROVIDERS: Nurse Practitioner; PCP Internal Medicine; Visit Provider Orthopaedic Surgery
PROC: (CPT 29805; principal; 2024-11-08 10:00)
DX: M75.42 Impingement syndrome of left shoulder (principal); M75.02 Adhesive capsulitis of left shoulder; M25.512 Pain in left shoulder; M19.012 Primary osteoarthritis, left shoulder; M25.612 Stiffness of left shoulder, not elsewhere classified; I10 Essential (primary) hypertension; E11.9 Type 2 diabetes mellitus without complications; J45.909 Unspecified asthma, uncomplicated; G47.33 Obstructive sleep apnea (adult) (pediatric); Z79.84 Long term (current) use of oral hypoglycemic drugs; Z79.899 Other long term (current) drug therapy; Z91.012 Allergy to eggs
CPT/HCPCS: 29824; 29825; 29826; 36415; 80048; 82947; 85027; 93005; J0131; J0171; J0330; J0665; J0690; J0696; J2003; J2250; J2371; J2405; J2704; J2795; J3010

== ENCOUNTER → 2024-11-08 07:47 | Outpatient (BNV) | payer OTHER, SELFPAY | PROVIDERS: PCP Internal Medicine; Visit Provider Orthopaedic Surgery | DX: M75.42 Impingement syndrome of left shoulder (principal); M19.012 Primary osteoarthritis, left shoulder; M75.02 Adhesive capsulitis of left shoulder | CPT/HCPCS: 29823; 29824; 29826 ==

== ENCOUNTER 2024-11-23 09:59 | Outpatient (AMB) | payer OTHER, SELFPAY ==
--- NOTE | 2024-11-23 10:10 | MHC.OFFVIS ---
Vital Signs 11/23/24 10:19 Height 5 ft 2 in Weight 249 lb BMI 45.5 Intake Visit Reasons: PO LT Shoulder 11/08/24 DR Intake Note: Bella is a 64 year old female who presents today post-operatively after undergoing a left shoulder arthroscopy on 11/08/24. Patient reports she is doing well. Patient has discontinued Oxycodone, taking Meloxicam as needed. Sutures removed in office and steri-strips applied. Allergies egg [EGG] Allergy (Intermediate, Verified 11/23/24 10:19) Nausea and Vomiting (can have in recipes, just not alone) Medication List - Last Reconciled 11/23/24 by Leonard Monroe MD albuterol sulfate 90 mcg/actuation 2 puffs inhalation Q4-6H PRN aspirin 81 mg PO DAILY cetirizine 10 mg PO DAILY PRN cyclobenzaprine 10 mg PO BEDTIME dimenhydrinate (Driminate) 50 mg PO BID PRN divalproex (Depakote) 250 mg PO BID docusate sodium (Colace) 100 mg PO DAILY PRN hydrochlorothiazide 25 mg PO DAILY lisinopril 40 mg PO QAM meloxicam 7.5 mg PO BID montelukast 10 mg PO BEDTIME omeprazole 20 mg PO DAILY simvastatin 20 mg PO BEDTIME trazodone 50 mg PO BEDTIME PRN PFSH Medical History (Updated 11/23/24 @ 10:27 by Leonard Monroe MD) Depression Bipolar disorder Arthritis Urinary, incontinence, stress female NAZ (obstructive sleep apnea) Hypercholesterolemia Vertigo Diabetes HTN (hypertension) Asthma Surgical History Hx of external ear surgery Hx of foot surgery History of total abdominal hysterectomy and bilateral salpingo-oophorectomy Social History Household Members: Family Are you a primary patient care technician instructor to a significant other at home: No Do you presently have visiting nurse or other home services: 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 Vance is doing well after undergoing left shoulder arthroscopic surgery on 11/08/2024. Her sutures were removed and Steri-Strips placed over her incisions. She will continue with her home stretching program. She does not wish to go to formal physical therapy at this time. She will contact me prior to her follow-up appointment in 2-3 months should any questions or concerns arise. Feel free to call me at any time should questions regarding her orthopedic management arise. Coding Level of Care Code Global (65733) Diagnoses Left shoulder pain M25.512
[2024-11-23 10:19] VITALS: BMI 45.5
--- OUTSIDE RECORDS SUMMARY | 2024-11-23 11:10 | XMS_ITS | Encounter Summary ---
Author Organization [employer] Address [address] [place] [address] Care Team Providers Care Desktop Support Associate Name Role Phone Esme Flores MD Primary Care Provider + Reason for Visit * Reason Comments Med Refill Encounter Details Date Type Department Care Team ([facility] st Contact Info) Description 05/14/2023 Refill [facility]S [address] [place], [place] [phone] Esme Flores MD [address] [place] [address] Gastroesophageal reflux disease, unspecified whether esophagitis present [...] 10:00 AM EDT Office Visit [facility] [address] [place] [address] Saw, Milagros, OD [address] [place] [address] documented as of this encounter Visit Diagnoses Diagnosis Gastroesophageal reflux disease, unspecified whether esophagitis present documented in this encounter Additional Health Concerns Assessment Noted Time PHQ-9 Depression Total Score: 15 023 1:05 PM EDT documented as of this encounter Care Teams Desktop Support Associate Relationship Specialty Start Date End Date Esme Flores MD [address] [place] [address] PCP - General Family Medicine 02/19/17 documented as of this encounter
--- OUTSIDE RECORDS SUMMARY | 2024-11-23 11:10 | XMS_ITS | Data Portability ---
Author Organization [facility] [place], [place] in - [facility] Address [address] [place] [id number] Care Team Providers Care Order Filler Name Role Phone HIM [facility] Referring Provider [facility] Referring Provider Assessment No assessment recorded. Plan of Treatment Reminders Order Date Submit Date Provider Last Modified By Organization Details Last Modified Time Details Appointments None recorded. Lab rapid SARS CoV 2 Ag, QL IA, respiratory specimen 2024 025 [facility], [address] [place] [address], [id number] 5 15:54:01 rapid flu (A+B) 2024 025 [facility], [address] [place] [address], [id number] 5 15:54:02 Referral None recorded. Procedures None recorded. Surgeries None recorded. Imaging None recorded. Medication Orders prednisone 20 mg tablet [id number], [address] [place], [phone], 5 12:14:34 azithromyci n 500 mg tablet [address] [id number], [address] [place], [address], 5 12:14:34 azithromyci n 250 mg tablet 2024 025 [facility], [address] [place], [place], [id number], 5 11:53:44 prednisone 20 mg tablet 2024 025 [facility], [address] [place] [address], [id number], 5 11:53:44 Patient TargetsNo targets recorded. Patient [...] Name and Address Organization Details Recorded Time 53854 egg extract food,medi cation Not available Not available Not available 08/08/2024 50487 15 RxNorm Not Available [employer] - production [...] % 97 % 82 /min 16 /min 832955. 08 g 119 mm[Hg] 80 mm[Hg] Not Available [employer] - production 4 12:49:58 Date Recorded Body temperature Heart rate Oxygen saturation Oxygen saturation in Arterial blood by Pulse oximetry Respiratory rate Systolic blood pressure Diastolic blood pressure Provider Name and Address Organization Details Last Updated DateTime 5 98.2 [degF] 92 /min 100 % 100 % 16 /min 121 mm[Hg] 61 mm[Hg] Not Available [employer] - production 12:02:08 Social History None recorded. Functional Status None recorded. Mental Status None recorded. Family History Nothing Reported. Medical History No medical history recorded. Gynecological HistoryNo gynecological history recorded. Obstetrics History GPAL:G 0 P 0 0 0 0 Past Encounters Encounter ID Performer Location Encounter Start Date Encounter Closed Date Diagnosis/Indication Diagnosis SNOMED-CT Code Diagnosis ICD10 Code Diagnosis Note [id number] Gerald Jurado MD Main - [address] [id number] 09/08/2023 12:49:56 09/08/2023 18:54:15 Pain of left shoulder joint [id number] M25.512 This 63-year-ol d female has a history of chronic left shoulder pain which has flared up today with no trauma. I suspect she has osteoarthr itis of the shoulder. I ordered Toradol 30 mg IM and Tylenol 500 mg tid prn pain. She will follow-up with her PCP. The patient agreed with this plan. [id number] Luis Alberto Magdaleno MD Main - [address] [phone] 08/08/2024 12:02:06 08/10/2024 16:59:20 Exacerbation of moderate persistent asthma [id number] J45.41 Patient w/symptoms of asthma exacerbati on. [...] Recorded Advance Directives Directive None Recorded Payers Insurance Date Sequence Insurance Name Policy Number Policy Dinh Covered Member ID Dinh Member ID Guarantor Name 08/08/2024 1 [facility] - DOS ON OR AFTER 2022 - DUAL ELIGIBLE - [employer] OPTIONS AND ONE CARE (MEDICARE REPLACEMENT/ADV ANTAGE - HMO) Bella Pinky [id number] Bella Vance Notes Date Note Type Note [...] NOT NEED FURTHER INFO Gerald Jurado MD [address] [place] [address],[address], [place], [address], [employer] 09/08/2023 12:53:14 08/08/2024 text/html CRC Nurse [...] at 08/08/2024:43 Allergies Reviewed at 08/08/2024:43 Comments: [employer] verified the Pt.'s name//address and phone number. [...] S/S started on . Wellness check requested Software Engineering Specialist Organization Information for Julianshirlenesanam Jefe Burciaga [employer] Legal Name: [facility] Address: [address] [place] [address], [place] [address], Heel Seat Fitter: Jhon Brock MD [facility] No.: [id number] Software Engineering Specialist POC Test Results from Michelle Jefe Burciaga [employer] Rapid COVID antigen (11:58:20) COVID: - Rapid influenza antigen (11:58:20) Flu: - .................... .................... .................... .................... .................... .................... .................... . Software Engineering Specialist Note From Jefe Martinez: This 64-year-old female [...] .................... .................... .................... .................... .................... .................... . [facility] Consulted: Jacob Magdaleno .................... .................... .................... .................... .................... .................... .................... . Disposition: Yanely Magdaleno MD [address], [place], [address], ANDRZEJ PEREZ 08/08/2024 14:51:24 OBGyn Episode No OBEpisode recorded.
--- OUTSIDE RECORDS SUMMARY | 2024-11-23 11:10 | XMS_ITS | Encounter Summary ---
Author Organization [employer] Address [address] [place] [address] Care Team Providers Care Rotary Swaging Machine Operator Name Role Phone Esme Flores MD Primary Care Provider + Reason for Visit * Reason Comments Med Refill Encounter Details Date Type Department Care Team ([facility] st Contact Info) Description 05/16/2023 Refill [facility] MED & PEDS [address] [place], [place] [phone] Esme Flores MD [address] [place] [address] Gastroesophageal reflux disease, unspecified whether esophagitis present [...] Description 12/22/2024 10:00 AM EDT Office Visit [facility] [address] [place] [address] Saw, Milagros, OD [address] [place] [address] documented as of this encounter Visit Diagnoses Diagnosis Gastroesophageal reflux disease, unspecified whether esophagitis present documented in this encounter Additional Health Concerns Assessment Noted Time PHQ-9 Depression Total Score: 15 023 1:05 PM EDT documented as of this encounter Care Teams Rotary Swaging Machine Operator Relationship Specialty Start Date End Date Esme Flores MD [address] [place] [address] PCP - General Family Medicine 02/19/17 documented as of this encounter
--- OUTSIDE RECORDS SUMMARY | 2024-11-23 11:10 | XMS_ITS | Encounter Summary ---
Author Organization [employer] Address [address] [facility] [address] [place] [address] Care Team Providers Care Research Professor Name Role Phone Esme Flores MD Primary Care Provider + Encounter Details Date Type Department Care Team (Latest Contact Info) Description 03/13/2021 Abstract [facility] CONVERSION[facility] Dental, Provider, DDS Social History [...] Description 12/22/2024 10:00 AM EDT Office Visit [facility] [address] [place] [address] Saw, Milagros, OD [address] [place] [address] documented as of this encounter Visit Diagnoses Not on filedocumented in this encounter Care Teams Research Professor Relationship Specialty Start Date End Date Esme Flores MD [address] [place] [address] PCP - General Family Medicine 02/19/17 documented as of this encounter
--- OUTSIDE RECORDS SUMMARY | 2024-11-23 11:10 | XMS_ITS | Encounter Summary ---
Author Organization [employer] Address [address] [facility] [address] [place] [address] Care Team Providers Care Promotional Demonstrator Name Role Phone Esme Flores MD Primary Care Provider + Reason for Visit * Reason Comments Med Refill Encounter Details Date Type Department Care Team (Late st Contact Info) Description 07/23/2022 Refill [facility] [address] [place] [address] Jose Alejandro Maurer DDS [address] [place] [address] Pain (Primary Dx) Social History Tobacco Use [...] Encounters Date Type Department Care Team (Late Contact Info) Description 12/22/2024 10:00 AM EDT Office Visit [facility] [address] [place] [address] Saw Milagros, OD [address] [place] [address] documented as of this encounter Visit Diagnoses Diagnosis Pain- Primary Generalized pain documented in this encounter Care Teams Promotional Demonstrator Relationship Specialty Start Date End Date Esme Flores MD [address] [place] [address] PCP - General Family Medicine 02/19/17 documented as of this encounter
--- OUTSIDE RECORDS SUMMARY | 2024-11-23 11:10 | XMS_ITS | Encounter Summary ---
Author Organization [employer] Address [address] [facility] 7[address] [place] [address] Care Team Providers Care Valve Maker Name Role Phone Esme Flores MD Primary Care Provider + Encounter Details Date Type Department Care Team (Late st Contact Info) Description 06/20/2022 Orders Only [facility] [address] [place] [address] Jenny Anderson LPN Social History Tobacco Use [...] 10:00 AM EDT Office Visit [facility] OPT[facility] [address] [place] [address] Saw, Milagros, OD [address] [place] [address] documented as of this encounter Visit Diagnoses Not on filedocumented in this encounter Care Teams Valve Maker Relationship Specialty Start Date End Date Esme Flores MD [address] [place] [address] PCP - General Family Medicine 02/19/17 documented as of this encounter
--- OUTSIDE RECORDS SUMMARY | 2024-11-23 11:10 | XMS_ITS | Clinical Summary ---
Author Organization [employer] Address [address] [facility] 7t [place] [address] Care Team Providers Care Graduate Civil Engineer Name Role Phone Esme Flores MD Primary Care Provider + Allergies Active Allergy Reactions Criticality Noted Date Comments Egg-Derived Products 10/15/2024 Other Reaction(s): Not available Medications glucose blood (FREESTYLE LITE) test strip apply 1 by to skin route once daily 05/17/20 20 Active zoster vaccine, live, (Zostavax) 30679 UNT/0.65ML injection inject 0.65 milliliter by subcutaneous route once 05/11/20 20 Active acetaminophen (Arthritis Pain Relief) 650 MG ER tabletIndicatio ns:Pain TAKE 2 TABLETS BY MOUTH EVERY 8 HOURS NEEDED. SWALLOW WHOLE WITH WATER. DO NOT BREAK, CRUSH, DISSOLVE OR CHEW 16 tablet 09/21/19 23 Active polyvinyl alcohol (Liquifilm Tears) 1.4 % ophthalmic solutionIndicat ions:Dry eye use 1gtt each eye q6h prn dry eey/itchy eye 30 mL 11 10/15/19 23 Active fluticasone (Flonase) 50 MCG/ACT nasal spray Administer 1-2 sprays into each nostril in the morning for 14 days. Shake gently. Before first use, prime pump. After use, clean tip and replace cap. 16 g 07/03/20 23 Active albuterol 108 (90 Base) MCG/ACT inhalerIndicati ons:COPD with acute exacerbation (CMS/HCC) Inhale 2 puffs every 4 (four) hours if needed for wheezing. 18 g 3 07/18/19 24 Active sodium chloride (Pipestone Nasal Chadron) 0.65 % nasal sprayIndication s:Viral upper respiratory tract infection Administer 1 spray into each nostril if needed for congestion. 30 mL 12 01/01/20 24 2024 Active docusate sodium (Colace) 100 MG capsuleIndicati ons:Gastroesoph ageal reflux disease, unspecified whether esophagitis present TAKE 1 CAPSULE BY MOUTH TWICE DAILY NEEDED CONSTIPATION 180 capsule 01/14/20 24 Active lisinopril 40 MG tabletIndicatio ns:Primary hypertension TAKE 1 TABLET BY MOUTH EVERY MORNING 90 tablet 3 01/14/20 24 Active traZODone (Desyrel) 50 MG tabletIndicatio ns:Insomnia, unspecified TAKE 1 TABLET BY MOUTH AT BEDTIME NEEDED FOR SLEEP 30 tablet 5 05/31/20 24 Active divalproex (Depakote) 250 MG EC tabletIndicatio ns:Polyneuropat hy, unspecified TAKE 1 TABLET BY MOUTH TWICE DAILY IN THE MORNING AND IN THE EVENING 60 tablet 5 05/31/20 24 Active simvastatin (Zocor) 20 MG tablet TAKE 1 TABLET BY MOUTH EVERY EVENING 90 tablet 07/30/19 25 Active montelukast (Singulair) 10 MG tablet TAKE 1 TABLET BY MOUTH EVERY EVENING 90 tablet 07/30/19 25 Active Aspirin Low Dose 81 MG EC tabletIndicatio ns:Type 2 diabetes mellitus with diabetic polyneuropathy, with long-term current use of insulin ([facility]) TAKE 1 TABLET BY MOUTH EVERY MORNING 90 tablet 3 07/30/19 25 Active hydroCHLOROthia zide (HYDRODiuril) 25 MG tablet TAKE 1 TABLET BY MOUTH EVERY MORNING 90 tablet 07/30/19 25 Active Driminate 50 MG tabletIndicatio ns:HTN (hypertension), benign TAKE 1 TABLET BY MOUTH EVERY TWELVE HOURS NEEDED 30 tablet 5 08/06/19 25 Active hydrocortisone 2.5 % cream Apply topically 2 times daily. 28 g 1 09/09/19 25 Active ammonium lactate (Amlactin) 12 % cream Apply topically if needed for dry skin. 385 g 09/09/19 25 2025 Active cyclobenzaprine (Flexeril) 10 MG tablet TAKE 1 TABLET BY MOUTH AT BEDTIME 30 tablet 5 09/21/19 25 Active meloxicam (Mobic) 7.5 MG tablet TAKE 1 TABLET BY MOUTH TWICE DAILY 60 tablet 1 10/19/19 25 Active cetirizine (ZyrTEC) 10 MG tabletIndicatio ns:Chronic rhinitis TAKE 1 TABLET BY MOUTH EVERY DAY NEEDED 90 tablet 1 11/18/19 25 Active omeprazole (PriLOSEC) [address] capsuleIndicati ons:Gastroesoph ageal reflux disease, unspecified whether esophagitis present TAKE 1 CAPSULE BY MOUTH EVERY MORNING 30 TO 60 MINUTES BEFORE BREAKFAST 90 capsule 1 11/18/19 25 Active omeprazole (PriLOSEC) [address] capsuleIndicati ons:Gastroesoph ageal reflux disease, unspecified whether esophagitis present TAKE 1 CAPSULE BY MOUTH EVERY MORNING 30-60 MINUTES BEFORE BREAKFAST 90 capsule 1 05/04/20 24 2024 Discontinued cetirizine (ZyrTEC) 10 MG tabletIndicatio ns:Chronic rhinitis TAKE 1 TABLET BY MOUTH EVERY DAY NEEDED 90 tablet 1 06/07/20 24 2024 Discontinued Active Problems Problem Noted Date Diagnosed Date Screening for colon cancer 10/07/2024 Preventative health care 10/07/2024 Assessment & Plan (10/07/2024 10:35 AM EDT): Discussed with patient re increase fresh fruit and vegetable intake. Counseled re moderate exercise as tolerated, up to 20min/d Patient feels safe at home. PAP smear N/A due to [facility] Mammogram UTD. 10/2024 Bone density test [...] PT 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 Assessment & Plan (10/14/2022 5:52 PM EDT): [...] exercise, life style modifications, diet, referral to cyber security specialist. She will hold off on that [...] Encounters Date Type Department Care Team Description 11/17/[address] [facility] [address] [place] [address] Esme Flores MD Chronic rhinitis; Gastroesophageal reflux disease, unspecified whether esophagitis present 10/27/2024 Orders Only GENERIC EXTERNAL DATA DEPARTMENT Provider, Generic External Data 10/17/[address] [facility] [address] [place] [address] Marta Valencia MD 10/07/2024 9:45 AM EDT Office Visit [facility] [address] [place] [address] Esme Flores MD Type 2 diabetes mellitus with hyperglycemia, without long-term current use of insulin (CMS/HCC) (Primary Dx); Screening for colon cancer; Preventative health care 10/07/2024 Travel 10/06/2024 10:30 AM EDT Office Visit [facility] [address] [place] [address] Saw, Milagros, OD Combined forms of age-related cataract of both eyes (Primary Dx); Diabetes type 2, no ocular involvement (CMS/HCC); Presbyopia of both eyes 10/06/2024 Travel 10/05/[address] [facility] [address] [place] [address] Esme Flores MD Chart prep 09/28/[address] [facility] [address] [place] [phone] Esme Flores MD Pre-visit Planning (SDOH screening completed on 09/08/2024) 09/18/[address] [facility] [address] [place], [place] [phone] Esme Flores MD 09/08/2024 10:15 AM EST Office Visit [facility] [address] [place] [phone] Esme Flores MD Type 2 diabetes mellitus with hyperglycemia, without long-term current use of insulin (CMS/HCC) (Primary Dx); Bipolar affective disorder, remission status unspecified (CMS/HCC); Class 3 severe obesity due to excess calories with serious comorbidity and body mass index (BMI) of 45.0 to 49.9 in adult (CMS/HCC); Dry skin dermatitis; Dietary counseling; Exercise counseling; Decreased radial pulse 09/08/2024 Travel 08/31/[address] [facility] [address] [place] [address] [phone] Esme Flores MD Chart prep 08/27/[address] [facility] [address] [place] [address] [phone] Esme Flores MD Pre-visit Planning ((Unable to reach for PVP screening, LVM)) from Last 3 Months Immunizations Immunization Administration Dates Next Due Hep A, ped/adol, [...] Description 12/22/2024 10:00 AM EDT Office Visit [facility] [address] [place] [address] Saw, Milagros, OD [address] [place] [address] Health Maintenance Due Date Last Done Comments [...] 02/16/2025 02/17/2024, 06/06, 02/05/2021, Additional history exists Diabetes: Hemoglobin A1C 03/11/2025 025, 12/25/2023, 07/03/2023, Additional history exists COVID-19 Vaccine ( season) 2025 09/18/2024, 02/22/2021, 02/01/2021 Depression Screening 09/08/2025 09/08/2024, 09/09/19 SDOH Screening 09/08/2025 09/08/2024 Tobacco Screening 10/15/2025 10/15/2024 Eye Exam 10/06/2026 10/06/2024, 0408/2024, 10/06/2024, Additional history exists DTaP/Tdap/Td Vaccines (3 [...] Completed 04/28/2024, , 05/03/2022, Additional history exists HIB Vaccines Aged Out No longer eligi ble based on patient's age to complete this topic HPV Vaccines Aged Out No longer eligi ble based on patient's age to complete this topic IPV Vaccines Aged Out No longer eligi ble based on patient's age to complete this topic Meningococcal B Vaccine Aged Out No l onger eligible based on patient's age to complete [...] Procedure Name Priority Date/Time Associated Diagnosis Comments GLUCOSE, WHOLE BLOOD Routine 11/08/2024 9:04 AM EDT BASIC METABOLIC PANEL Routine 10/27/2024 12:59 PM EDT CBC Routine 10/27/2024 12:59 PM EDT T-SPOT(R).TB Routine 10/07/2024 10:20 AM EDT Type 2 diabetes mellitus with hyperglycemia, without long-term current use of insulin ([facility]/HCC) Dermatitis due to sun POCT GLUCOSE Routine 10/07/2024 9:32 AM EDT Type 2 diabetes mellitus with hyperglycemia, without long-term current use of insulin (CMS/HCC) POCT GLYCATED HEMOGLOBIN, TOTAL Routine 09/08/2024 10:27 AM EST Type 2 diabetes mellitus with hyperglycemia, without long-term current use of insulin (CMS/HCC) POCT GLUCOSE Routine 09/08/2024 10:27 AM EST Type 2 diabetes mellitus with hyperglycemia, without long-term current use of insulin (CMS/HCC) BI MAMMOGRAM SCREENING TOMOSYNTHESIS BILATERAL Routine 02/17/2024 [...] Recently Relevant to Health Maintenance Results * (ABNORMAL) Glucose, Whole Blood (11/08/2024 9:04 AM EDT) Glucose, Whole Blood 140(H) 60 - 115 mg/dL [facility] Comment:METER #: [id number] 11/08/2024 9:04 AM EDT 11/08/2024 9:09 AM EDT us Generic External Data Provider LAB BLOOD ORDERAB LES Final Result [facility] [address] [place], [place] [phone] * (ABNORMAL) CBC (10/27/2024 12:59 PM EDT) White Blood Count 8.8 4.8 - 10.8 X10*3/uL [facility] Red Blood Count 3.63(L) 4.20 - 5.50 X10*6/uL [facility] Hemoglobin 11.3(L) 12.0 - 16.0 g/dl [facility] Hematocrit 34.8(L) 37.0 - 47.0 % [facility] Mean Corpuscular Volume 95.9 80.0 - 98.0 fL [facility] Mean Corpuscular Hemoglobin 31.1 27.0 - 33.0 pg [facility] Mean Corpuscular HGB Conc 32.5 31.0 - 35.0 g/dl [facility] Red Cell Distribution Width 15.3 11.0 - 16.0 % [facility] Platelet Count 362 160 - 400 X10*3/uL [facility] Mean Platelet Volume 9.8 9.4 - 12.3 fL [facility] NRBC Pct Auto 0.0 0.0 - 0.2 /100WBC [facility] NRBC Abs Auto 0.000 0.0 - 0.012 X10*3/uL [facility] 10/27/2024 12:5 9 PM EDT 10/27/2024 12:59 PM EDT us Generic External Data Provider LAB BLOOD ORDERAB LES Final Result [facility] [address] [place] [phone] * Basic Metabolic Panel (10/27/2024 12:59 PM EDT) Pathologist [facility] Sodium 143 135 - 145 mmol/L [facility] Potassium 3.9 3.3 - 5.1 mmol/L [facility] Comment:Slight Hemolysis.Int erpret result with caution. Chloride 106 96 - 108 mmol/L [facility] Carbon Dioxide 28 22 - 29 mmol/L [facility] Anion Gap 13 12 - 20 [facility] Urea Nitrogen (BUN) 15 9 - 16 mg/dL [facility] Creatinine, Serum 0.70 0.5 - 1.4 mg/dL [facility] Creatinine Clr Calc Pharmacy 94.0 [facility] Comment:Provided height and weight: 157.48 cm,113.3 kg.eGFR (calculated from the MDRD study equation) and eCrCl(calculated from the Cockcroft-Gault equation) are based ondifferent parameters and may not yield comparable results.If eCrCl result is absurd, please check patient'sheight/weight. Estimated Glomerular Filt Rate >60 [facility] Comment:Chronic Kidney Disea se: Estimated GFR < 60 mL/min/1.21r1Puxljj Kidney Disease: Estimated GFR < 15 mL/min/1.73m2 Glucose 94 60 - 115 mg/dL [facility] Calcium 9.6 8.4 - 10.2 mg/dL [facility] 10/27/2024 12:5 9 PM EDT 10/27/2024 12:59 PM EDT us Generic External Data Provider LAB BLOOD ORDERAB LES Final Result [facility] [address] [place] [phone] * T-SPOT??.TB (10/07/2024 10:20 AM EDT) T Spot TB Negative Negative [facility] Comment:A negative test resu lt does not exclude the possibilityof exposure to or infection with Mycobacteriumtuberculosis (M. tuberculosis). Patients with recentexposure to TB infected individuals exhibiting anegative T-SPOT.TB result should be considered forretesting within 6 weeks or if other relevant clinicalsymptoms indicate. Results from T-SPOT.TB testing mustbe used in conjunction with each individual'sepidemiological history, current medical status,and results of other diagnostic evaluations.The T-SPOT.TB test is qualitative and results arereported as positive, borderline, or negative, giventhat the test controls perform as expected. In linewith the Centers for Disease Control and Prevention's2010 recommendation to report quantitative measurementsalongside the qualitative result, the laboratoryprovides spot counts for informational purposes only.The T-SPOT.TB test should not be interpreted as aquantitative test. TS PANEL A 0 [facility] TS PANEL B 0 [facility] Negative Control Passed [facility] Positive Control Passed [facility] Comment:For additional infor ludmila, please refer tohttp://education.[employer]/faq/GIL000(This link is being provided for informational/educational purposes only.)THIS TEST WAS PERFORMED AT:[employer] [id number] [place] [phone] PADILLA MD,PHD 10/07/2024 10:2 0 AM EDT 10/07/2024 11:28 AM EDT us Esme Flores MD LAB BLOOD ORDERABLES Fin al Result [facility] [address] [place] [phone] * POCT Glucose (10/07/2024 9:32 AM EDT) [...] Media Lot # [id number] Lot# Expiration Date Blood 09/08/2024 10:2 7 AM EST us Esme Flores MD POINT OF CARE TEST ENTER /EDIT ORDERABLES Final Result * BI Mammogram Screening Tomosynthesis Bilateral (02/17/2024 10:56 AM EDT) Anatomical Region Laterality Modality Breast Bilateral Mammography 02/17/2024 10:5 6 AM EDT Narrative 03/11/2024 3:54 PM EDT ? [facility] ? [address] ?[place], [place] [address] ? Mammography Report ? Signed ? Patient: Bella Vance ?MR#: [id number] ?? [id number] ? : 1960 ?Acct:[id number] ? Age/Sex: 63 / F ?ADM Date: 02/17/24 ? Loc: HO.MAMMO ? Attending Dr: Esme Flores MD ? Ordering Physician: Esme Flores MD ?Results: 1Ne ?? gative ? Date of Service: 02/17/24 ?Follow Up: 1 Year From Orig ?? inal Mammogram ? Procedure(s): MM tomosynthesis screening BI ?? Accession Number(s): [id number] ? cc: Esme Flores MD ? EXAMINATION: [...] DD/ 1056 ? TD/TT: 02/17/24 1114 ? Photograph Enlarger: ? Procedure Note Geoff Dunn - 03/11/2024 [facility] [address] [place] [address] Mammography Report Signed Patient: Bella Vance#: [id number] : 8Acct:[id number] Age/Sex: 63 / FADM Date: 02/17/24 Loc: [facility] Attending Dr: Esme Flores MD Ordering Physician: Esme Floresesults: 1Ne gative Date of Service: 02/17/24Follow Up: 1 Year From Orig ina Mammogram Procedure(s): MM tomosynthesis screening BI Accession Number(s): [id number] cc: Esme Flores MD EXAMINATION: MM SCREENING [...] Alejandra Chapa MD 03/11/2024 03:51 PM EDT Dictated By: Alejandra Chapa MD Signed By: <Electronically signed by Alejandra Chapa MD in OV> 03/11/24 1551 DD/ 1056 TD/TT: 02/17/24 1114 Photograph Enlarger: Esme Flores MD [facility] PROCEDURES Edited Result - Final * Lipid Panel with Reflex to Direct LDL (12/16/2023 12:08 PM EDT) Triglycerides 50 <150 mg/dL [facility] Comment:Desirable Triglyceri de: less than 150 mg/dLBorderline High Triglyceride 150-199 mg/dLHigh Triglyceride: 200-499 mg/dLVery High Triglyceride: greater than or equal to 5OO mg/dL Cholesterol 121 <200 mg/dL [facility] Comment:Desirable Cholestero l: less than 200 mg/dLBorderline High Cholesterol: 200-239 mg/dLHigh Cholesterol: greater than 239 mg/dL LDL Cholesterol Calculated 69 <100 mg/dL [facility] Comment:Desirable LDL: less than 100 mg/dLNear Optimal/Above Optimal LDL: 110- 129 mg/dLBorderline High LDL: 130-159 mg/dLHigh LDL: 160-189 mg/dLVery High LDL: greater than or equal to 190 mg/dL HDL Cholesterol 42 >40 mg/dL [facility] Comment:Desirable HDL: great er than 40 mg/dL Note: This HDL assay may give artificially low results in patients with liver disease. Blood 12/16/2023 12:0 8 PM EDT 12/16/2023 1:30 PM EDT us Esme Flores MD LAB BLOOD ORDERABLES Fin al Result Performing Organization Address [facility] Co de Phone Number [facility] [address] [place] [phone] * Albumin, Random Urine W/Creatinine (12/16/2023 12:08 PM EDT) Creatinine, Urine 177.89 mg/dL [facility] Microalbumin Urine 9.0 mg/L [facility] Microalbum Creatinine Ratio Ur 5.0 <30 ug/mg cr [facility] Comment:Albumin/Creatinine R atio Reference Ranges: Normal: < 30 ug/mg creatinine Microalbuminuria: 30 - 300 ug/mg creatinineClinical Albuminuria: > 300 ug/mg creatinine Urine (Urine, Random) 12/16/2023 12:08 PM EDT 12/16/2023 1:33 PM EDT us Esme Flores MD LAB URINE ORDERABLES Fin al Result Performing Organization Address [facility] Co de Phone Number [facility] [address] [place] [phone] * Hepatitis C Antibody with Reflex to HCV, RNA, Quantitative, Real-Time PCR (08/22/2022 12:20 PM EST) Hepatitis C Antibody NON-REACT HERBERT NON-REACT HERBERT [employer] Index 0.10 <1.00 [employer] Comment: HCV antibody was non-reactive. There is no laboratory evidence of HCV infection. In most cases, no further action is required. However, if recent HCV exposure is suspected, a test for HCV RNA (test code 32350) is suggested. For additional information please refer to http://education.We[employer] Access/faq/CPX17m0 (This link is being provided for informational/ educational purposes only.) 08/22/2022 12:2 0 PM EST 08/22/2022 12:21 PM EST Narrative [facility] - 08/28/2022 11:02 PM EST FASTING:NO FASTING: NO Esme Flores MD LAB BLOOD ORDERABLES Fin al Result [facility] [address], [place] [address] [facility] [address] [facility], ([address]) [place] [address] from Last 3 Months or Most Recently Relevant to Health Maintenance Insurance [employer] (HMO D-SNP) SWATHI BALDERAS [id number] DENTAL-[facility] MEDICAID STAND ADULT DENTAL - [facility] PPO Care Teams Graduate Civil Engineer Relationship Specialty Start Date End Date Esme Flores MD [address] [place] [address] PCP - General Family Medicine 02/19/17
--- OUTSIDE RECORDS SUMMARY | 2024-11-23 11:10 | XMS_ITS | Encounter Summary ---
Author Organization [employer] Address [address] [place] [address] Care Team Providers Care Housing Assistant Property Manager Name Role Phone Esme Flores MD Primary Care Provider + Reason for Visit * Reason Onset Date Comments Appointment Request 12/17/2023 Encounter Details Date Type Department Care Team ([facility] Contact Info) Description 12/17/[address] 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 [address] [place] [address] Saw, Milagros, OD [address] [place] [address] documented as of this encounter Visit Diagnoses Not on filedocumented in this encounter Additional Health Concerns Assessment Noted Time PHQ-9 Depression Total Score: 15 023 1:05 PM EDT documented as of this encounter Care Teams Housing Assistant Property Manager Relationship Specialty Start Date End Date Esme Flores MD [address] [place] [address] PCP - General Family Medicine 02/19/17 documented as of this encounter
--- OUTSIDE RECORDS SUMMARY | 2024-11-23 11:10 | XMS_ITS | Encounter Summary ---
Author Organization [employer] Address [address] 7t [place] [address] Care Team Providers Care Rubber Insulator Name Role Phone Esme Flores MD Primary Care Provider + Reason for Visit * Reason Comments Med Refill Encounter Details Date Type Department Care Team ([facility] st Contact Info) Description 07/07/2023 Refill [facility] MEDICINE [address] [place], [place] [phone] Esme Flores MD [address] [place], [place] [phone] Polyneuropathy, unspecified Social History Tobacco Use Types [...] Description 12/22/2024 10:00 AM EDT Office Visit [facility] OPT[facility]RY [address] [place] [address] Saw, Milagros, OD [address] [place], [place] [phone] documented as of this encounter Visit Diagnoses Diagnosis Polyneuropathy, unspecified documented in this encounter Additional Health Concerns Assessment Noted Time PHQ-9 Depression Total Score: 15 023 1:05 PM EDT documented as of this encounter Care Teams Rubber Insulator Relationship Specialty Start Date End Date Esme Flores MD [address] [place] [address] PCP - General Family Medicine 02/19/17 documented as of this encounter
--- OUTSIDE RECORDS SUMMARY | 2024-11-23 11:10 | XMS_ITS | Encounter Summary ---
Author Organization [employer] Address [address] 7[address] [place] [address] Care Team Providers Care Pneumatic Riveter Name Role Phone Esme Flores MD Primary Care Provider + Encounter Details Date Type Department Care Team ([facility] st Contact Info) Description 03/25/2024 Telephone [facility] MEDICINE [address] [place] [address] Esme Flores MD [address] [place] [address] Social History Tobacco Use Types Packs/Day Years Used Date Smoking Tobacco: Never Passive Smoke Exposure: Never Smokeless Tobacco: Never Alcohol Use Standard Drinks/Week Comments Not Currently 0 (1 standard drink = 0.6 oz pur e alcohol) Depression Answer Date Recorded Patient Health Questionnaire-9 Score 15 10/14/2022 Housing Stability Answer Date Recorded What is your housing situation today? I have judybrian parker 04/21/[address] you [...] Description 12/22/2024 10:00 AM EDT Office Visit [facility] OPT[facility]RY [address] [place], [place] [phone] Saw, Megan, OD [address] [place] [address] documented as of this encounter Visit Diagnoses Not on filedocumented in this encounter Additional Health Concerns Assessment Noted Time PHQ-9 Depression Total Score: 15 023 1:05 PM EDT documented as of this encounter Care Teams Pneumatic Riveter Relationship Specialty Start Date End Date Esme Flores MD [address] [place] [address] PCP - General Family Medicine 02/19/17 documented as of this encounter
--- OUTSIDE RECORDS SUMMARY | 2024-11-23 11:10 | XMS_ITS | Encounter Summary ---
Author Organization [employer] Address [address] [facility] 7t [place] [address] Care Team Providers Care Retail Clerk Name Role Phone Esme Flores MD Primary Care Provider + Encounter Details Date Type Department Care Team (Late st Contact Info) Description 09/30/2022 Orders Only [facility] CHC MED & PEDS [address] [place] [address] Catia Jarrell LPN Social History Tobacco Use [...] SYSTEM [facility] OPTOMETRY [address] [place] [address] SawMilagros granger, OD [address] [place] [address] documented as of this encounter Visit Diagnoses Not on filedocumented in this encounter Care Teams Retail Clerk Relationship Specialty Start Date End Date Esme Flores MD [address] [place] [address] PCP - General Family Medicine 02/19/17 documented as of this encounter
--- OUTSIDE RECORDS SUMMARY | 2024-11-23 11:10 | XMS_ITS | Encounter Summary ---
Author Organization [employer] Address [address] [facility] 7t [place] [address] Care Team Providers Care Film Washer Name Role Phone Esme Flores MD Primary Care Provider + Encounter Details Date Type Department Care Team (Latest Contact Info) Description 06/15/2019 Abstract [facility] CONVERSIONS Dental, Provider, DDS Social History [...] Description 12/22/2024 10:00 AM EDT Office Visit [facility] OPTOMETRY [address] [place] [address] Saw, Milagros, OD [address] [place] [address] documented as of this encounter Visit Diagnoses Not on filedocumented in this encounter Care Teams Film Washer Relationship Specialty Start Date End Date Esme Flores MD [address] [place] [address] PCP - General Family Medicine 02/19/17 documented as of this encounter
== END 2024-11-23 10:36 | disposition home or self-care (01) ==
LOC: HO.HOS 10:00
PROVIDERS: PCP Internal Medicine; Visit Provider Orthopaedic Surgery
DX: M25.512 Pain in left shoulder (principal)
CPT/HCPCS: 99024

== ENCOUNTER → 2024-11-23 09:59 | Outpatient (BNVA) | payer OTHER, SELFPAY | PROVIDERS: PCP Internal Medicine; Visit Provider Orthopaedic Surgery | DX: M25.512 Pain in left shoulder (principal); Z47.89 Encounter for other orthopedic aftercare; Z98.890 Other specified postprocedural states | CPT/HCPCS: 99212 ==

== ENCOUNTER 2025-03-15 11:28 | Outpatient (REF) | payer OTHER, SELFPAY ==
--- NOTE | ~2025-03-15 | XR_ITS ---
EXAMINATION: XR KNEE, LEFT CLINICAL INFORMATION: bl knee pain/ OA COMPARISON: None available. TECHNIQUE: Three views of the left knee. FINDINGS: There is moderate narrowing of the lateral joint space. The medial joint space is preserved. There are tricompartmental marginal osteophytes. There is degenerative cystic change at the base of the tibial spines. There is stippled calcification visible within the medial and lateral menisci. Linear calcific density vertically oriented medial to the medial joint line is likely related to pyrophosphate deposition in the joint capsule or other adjacent soft tissue. No definite joint effusion is evident. 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 Electronically signed by: Enrrique Peres MD 03/15/2025 01:10 PM EDT
--- NOTE | ~2025-03-15 | XR_ITS ---
EXAMINATION: XR KNEE, RIGHT CLINICAL INFORMATION: Bilateral knee broderick OA COMPARISON: None available. TECHNIQUE: Four views of the right knee. FINDINGS: There is moderate narrowing of the lateral joint space and no narrowing in the medial joint space. There are large tricompartmental marginal osteophytes. There is a small joint effusion. There is chondrocalcinosis involving both medial and lateral meniscus and articular cartilage in the medial and lateral compartments. There is an oval ossification projects in the medial intercondylar notch measuring 9 x 23 mm. 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 Small joint effusion. Suspected 9 x 22 mm ossified intra-articular body. Electronically signed by: Enrrique Peres MD 03/15/2025 01:08 PM EDT
--- OUTSIDE RECORDS SUMMARY | 2025-03-15 11:15 | XMS_ITS | Encounter Summary ---
Author Organization [employer] Address [address] [facility] [address] 7t [place] [address] Care Team Providers Care Bed Bug Exterminator Name Role Phone Esme Flores MD Primary Care Provider + Reason for Visit * Reason Comments Follow-up Encounter Details Date Type Department Care Team (Latest Contact Info) Description 03/15/2025 11:15 AM EDT Office Visit [facility] MEDICINE [address] [place] [address] Esme Flores MD [address] [place] [address] Screening for colon cancer (Primary Dx); Type 2 diabetes mellitus with hyperglycemia, without long-term current use of insulin ([facility]/HCC); Screening mammogram for breast cancer; Primary osteoarthritis of both knees Social History Tobacco Use Types Packs/Day Years Used Date Smoking Tobacco: Never Passive Smoke Exposure: Never Smokeless Tobacco: Never Alcohol Use Standard Drinks/Week Comments Not Currently 0 (1 standard drink = 0.6 oz pur e alcohol) Alcohol Answer Date Recorded How often do you have a drink containing alcohol ? 0 03/15/2025 How many drinks containing a lcohol do you have on a typical day when you are drinking? 0 03/15/2025 How often do you have six or more drinks on one occasion? 0 03/15/2025 Depression Answer Date Recorded Patient Health Questionnaire-9 [...] Sign Reading Time Taken Comments Blood Pressure 138/80 03/15/2025 10:27 AM EDT Pulse 69 03/15/2025 10:27 AM EDT Temperature 36.9 C (98.5 F) 03/15/2025 10:27 AM EDT Respiratory Rate 22 03/15/2025 10:27 AM EDT Oxygen Saturation - - Inhaled Oxygen Concentration - - Weight 108 kg (238 lb) 03/15/2025 10:27 AM EDT Height 157.5 cm (5' 2 ) 03/15/2025 10:27 AM EDT Body Mass Index 43.53 03/15/2025 10:27 AM EDT documented in this encounter Miscellaneous Notes * Assessment & Plan Note - Esme Flores MD - 03/15/2025 10:35 AM EDT Associated Problem(s): Screening mammogram for breast cancer Has appt scheduled for 03/22/25 * Assessment & Plan Note - Esme Flores MD - 03/15/2025 10:34 AM EDT Associated Problem(s): Screening for colon cancer Declined colonoscopy and cologuard documented in this encounter Plan of Treatment Scheduled Orders Name Type Priority Associated Diagnoses Orde r Schedule Albumin, Random Urine W/Creatinine Lab Routine Type 2 diabetes mellitus with hyperglycemia, without long-term current use of insulin (CMS/HCC) Expected: 03/15/2025 (Approximate), Expires: 03/15/2026 Basic Metabolic Panel Lab Routine Type 2 diabetes mellitus with hyperglycemia, without long-term current use of insulin (CMS/HCC) Expected: 03/15/2025 (Approximate), Expires: 03/15/2026 Lipid Panel with Reflex to Direct LDL Lab Routine Type 2 diabetes mellitus with hyperglycemia, without long-term current use of insulin (CMS/HCC) Expected: 03/15/2025 (Approximate), Expires: 03/15/2026 documented as of this encounter Procedures Procedure Name Priority Date/Time Associated Diagnosis Comments XR KNEE 3 VIEWS RIGHT Routine 03/15/2025 12:00 PM EDT Primary osteoarthritis of both knees XR KNEE 3 VIEWS LEFT Routine 03/15/2025 11:56 AM EDT Primary osteoarthritis of both knees POCT GLYCATED HEMOGLOBIN, TOTAL Routine 03/15/2025 10:29 AM EDT Type 2 diabetes mellitus with hyperglycemia, without long-term current use of insulin (CMS/HCC) POCT GLUCOSE Routine 03/15/2025 10:29 AM EDT Type 2 diabetes mellitus with hyperglycemia, without long-term current use of insulin (CMS/HCC) documented in this encounter Results * XR Knee 3 Views Right (03/15/2025 12:00 PM EDT) Anatomical Region Laterality Modality Lower Extremities, Knee Right Radiogra phic Imaging 03/15/2025 12:0 0 PM EDT Narrative 03/15/2025 1:11 PM EDT [address] [address] XRay Report Signed Patient: Bella Vance MR#: [id number] : 1960 Acct:[id number] Age/Sex: 65 / F ADM Date: 03/15/25 Loc: HO.HHCX Attending Dr: Esme Flores MD Ordering Physician: Esme Flores MD Date of Service: 03/15/25 Procedure(s): XR knee RT 3V Accession Number(s): [id number] cc: Esme Flores MD Reason for Exam: bl knee broderick OA EXAMINATION: XR KNEE, RIGHT CLINICAL INFORMATION: Bilateral knee broderick OA COMPARISON: None available. TECHNIQUE: Four views of the right knee. FINDINGS: There is moderate narrowing of the lateral joint space and no narrowing in the medial joint space. There are large tricompartmental marginal osteophytes. There is a small joint effusion. There is chondrocalcinosis involving both medial and lateral meniscus and articular cartilage in the medial and lateral compartments. There is an oval ossification projects in the medial intercondylar notch measuring 9 x 23 mm. 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 Small joint effusion. Suspected 9 x 22 mm ossified intra-articular body. Electronically signed by: Enrrique Peres MD 03/15/2025 01:08 PM EDT Dictated By: Enrrique Peres MD Signed By: <Electronically signed by Enrrique Peres MD in OV> 03/15/25 1308 DD/ 1200 TD/TT: 03/15/25 1210 House Mover Supervisor: Procedure Note Donotuseinterpreter, Image - 03/15/[address] [address] XRay Report Signed Patient: Bella VanceMR#: [id number] : 8Acct:[id number] Age/Sex: 65 / FADM Date: 03/15/25 Loc: HO.HHCX Attending Dr: Esme Flores MD Ordering Physician: Esme Flores MD Date of Service: 03/15/25 Procedure(s): XR knee RT 3V Accession Number(s): [id number] cc: Esme Flores MD Reason for Exam: bl knee broderick OA EXAMINATION: XR KNEE, RIGHT CLINICAL INFORMATION: Bilateral knee broderick OA COMPARISON: None available. TECHNIQUE: Four views of the right knee. FINDINGS: There is moderate narrowing of the lateral joint space and no narrowing in the medial joint space. There are large tricompartmental marginal osteophytes. There is a small joint effusion. There is chondrocalcinosis involving both medial and lateral meniscus and articular cartilage in the medial and lateral compartments. There is an oval ossification projects in the medial intercondylar notch measuring 9 x 23 mm. 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 Small joint effusion. Suspected 9 x 22 mm ossified intra-articular body. Electronically signed by: Enrrique Peres MD 03/15/2025 01:08 PM EDT Dictated By: Enrrique Peres MD Signed By: <Electronically signed by Enrrique Peres MD in OV> 03/15/25 1308 DD/ 1200 TD/TT: 03/15/25 1210 House Mover Supervisor: Esme Flores MD IMG XR PROCEDURES Final Result * XR Knee 3 Views Left (03/15/2025 11:56 AM EDT) Anatomical Region Laterality Modality Lower Extremities, Knee Left Radiogra phic Imaging 03/15/2025 11:5 6 AM EDT Narrative 03/15/2025 1:13 PM EDT [facility] [address] [place] [address] XRay Report Signed Patient: Bella Vance MR#: [id number] : 1960 Acct:[id number] Age/Sex: 65 / F ADM Date: 03/15/25 Loc: [facility]AN[facility] Attending Dr: Esme Flores MD Ordering Physician: Esme Flores MD Date of Service: 03/15/25 Procedure(s): XR knee LT 3V Accession Number(s): [id number] cc: Esme Flores MD Reason for Exam: bl knee pain/ OA EXAMINATION: XR KNEE, LEFT CLINICAL INFORMATION: bl knee pain/ OA COMPARISON: None available. TECHNIQUE: Three views of the left knee. FINDINGS: There is moderate narrowing of the lateral joint space. The medial joint space is preserved. There are tricompartmental marginal osteophytes. There is degenerative cystic change at the base of the tibial spines. There is stippled calcification visible within the medial and lateral menisci. Linear calcific density vertically oriented medial to the medial joint line is likely related to pyrophosphate deposition in the joint capsule or other adjacent soft tissue. No definite joint effusion is evident. 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 Electronically signed by: Enrrique Peres MD 03/15/2025 01:10 PM EDT Dictated By: Enrrique Peres MD Signed By: <Electronically signed by Enrrique Peres MD in OV> 03/15/25 1310 DD/ 1156 TD/TT: 03/15/25 1210 House Mover Supervisor: Procedure Note Donotuseinterpreter, Image - 03/15/[address] [address] XRay Report Signed Patient: Bella VanceMR#: [id number] : 8Acct:[id number] Age/Sex: 65 / FADM Date: 03/15/25 Loc: [facility]AN[facility] Attending Dr: Esme Flores MD Ordering Physician: Esme Flores MD Date of Service: 03/15/25 Procedure(s): XR knee LT 3V Accession Number(s): [id number] cc: Esme Flores MD Reason for Exam: bl knee pain/ OA EXAMINATION: XR KNEE, LEFT CLINICAL INFORMATION: bl knee pain/ OA COMPARISON: None available. TECHNIQUE: Three views of the left knee. FINDINGS: There is moderate narrowing of the lateral joint space. The medial joint space is preserved. There are tricompartmental marginal osteophytes. There is degenerative cystic change at the base of the tibial spines. There is stippled calcification visible within the medial and lateral menisci. Linear calcific density vertically oriented medial to the medial joint line is likely related to pyrophosphate deposition in the joint capsule or other adjacent soft tissue. No definite joint effusion is evident. 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 Electronically signed by: Enrrique Peres MD 03/15/2025 01:10 PM EDT Dictated By: Enrrique Peres MD Signed By: <Electronically signed by Enrriqeu Peres MD in OV> 03/15/25 1310 DD/ 1156 TD/TT: 03/15/25 1210 House Mover Supervisor: Esme Flores MD IMG XR PROCEDURES Final Result * POCT Glucose (03/15/2025 10:29 AM EDT) Glucose Blood, POC 124 60 - 200 mg/dL QC Media Lot # [id number] Lot# Expiration Date Blood Capillary blood specimen / Unknown 03/15/2025 10:29 AM EDT Esme Flores MD POINT OF CARE TEST ENTER /EDIT ORDERABLES Final Result * POCT Hgb A1c (03/15/2025 10:29 AM EDT) Hemoglobin A1C 5.1 4.0 - 5.7 % QC Media Lot # [id number] Lot# Expiration Date Blood 03/15/2025 10:2 9 AM EDT Esme Flores MD POINT OF CARE TEST ENTER /EDIT ORDERABLES Final Result documented in this encounter Visit Diagnoses Diagnosis Screening for colon cancer- Primary Special screening for malignant neoplasms, colon Type 2 diabetes mellitus with hyperglycemia, without long-term current use of insulin ([facility]) Screening mammogram for breast cancer Primary osteoarthritis of both knees documented in this encounter Additional Health Concerns Assessment Noted Time PHQ-9 Depression Total Score: 12 09/08/ 025 10:31 AM EST documented as of this encounter Care Teams Bed Bug Exterminator Relationship Specialty Start Date End Date Esme Flores MD [address] [place] [address] PCP - General Family Medicine 02/19/17 documented as of this encounter
--- OUTSIDE RECORDS SUMMARY | 2025-03-15 13:56 | XMS_ITS | Encounter Summary ---
Author Organization [employer] Address [address] [facility] 7t [place] [address] Care Team Providers Care Patch Press Operator Name Role Phone Esme Flores MD Primary Care Provider + Encounter Details Date Type Department Care Team (Latest Contact Info) Description 06/15/2019 Abstract [facility] CONVERSIONS Dental, Provider, DDS Social History [...] as of this encounter Plan of Treatment Not on file documented as of this encounter Visit Diagnoses Not on filedocumented in this encounter Care Teams Patch Press Operator Relationship Specialty Start Date End Date Esme Flores MD [address] [place] [address] PCP - General Family Medicine 02/19/17 documented as of this encounter
--- OUTSIDE RECORDS SUMMARY | 2025-03-15 13:56 | XMS_ITS | Encounter Summary ---
Author Organization [employer] Address [address] [facility] [place] [address] Care Team Providers Care Finance Teacher Name Role Phone Esme Flores MD Primary Care Provider + Encounter Details Date Type Department Care Team ([facility] st Contact Info) Description 03/25/2024 Telephone [facility] MEDICINE [address] [place] [address] Esme Flores MD [address] [place] [address] Social History Tobacco Use Types Packs/Day Years [...] documented as of this encounter Care Teams Finance Teacher Relationship Specialty Start Date End Date Esme Flores MD [address] [place] [address] PCP - General Family Medicine 02/19/17 documented as of this encounter
--- OUTSIDE RECORDS SUMMARY | 2025-03-15 13:56 | XMS_ITS | Encounter Summary ---
Author Organization [employer] Address [address] [place] [address] Care Team Providers Care Hotel Valet Attendant Name Role Phone Esme Flores MD Primary Care Provider + Reason for Visit * Reason Comments Med Refill Encounter Details Date Type Department Care Team ([facility] st Contact Info) Description 07/07/2023 Refill [facility] MEDICINE [address] [place], [place] [phone] Esme Flores MD [address] [place], [place] [phone] Polyneuropathy, unspecified Social History Tobacco Use Types [...] documented as of this encounter Care Teams Hotel Valet Attendant Relationship Specialty Start Date End Date Esme Flores MD [address] [place] [address] PCP - General Family Medicine 02/19/17 documented as of this encounter
--- OUTSIDE RECORDS SUMMARY | 2025-03-15 13:56 | XMS_ITS | Encounter Summary ---
Author Organization [employer] Address [address] [facility] [place] [address] Care Team Providers Care Administrative Assistant Front Desk Name Role Phone Esme Flores MD Primary Care Provider + Reason for Visit * Reason Comments Med Refill Encounter Details Date Type Department Care Team ([facility] st Contact Info) Description 05/16/2023 Refill [facility] CHC MED & PEDS [address] [place], [place] [phone] Esme Flores MD [address] [place] [address] Gastroesophageal reflux disease, unspecified whether esophagitis present [...] documented as of this encounter Care Teams Administrative Assistant Front Desk Relationship Specialty Start Date End Date Esme Flores MD [address] [place] [address] PCP - General Family Medicine 02/19/17 documented as of this encounter
--- OUTSIDE RECORDS SUMMARY | 2025-03-15 13:56 | XMS_ITS | Encounter Summary ---
Author Organization [employer] Address [address] [facility] [address] [place] [address] Care Team Providers Care Health Insurance Agent Name Role Phone Esme Flores MD Primary Care Provider + Encounter Details Date Type Department Care Team (Late st Contact Info) Description 09/30/2022 Orders Only [facility] CHC MED & PEDS [address] [place], [place] [phone] Catia Jarrell LPN Social History Tobacco Use [...] on filedocumented in this encounter Care Teams Health Insurance Agent Relationship Specialty Start Date End Date Esme Flores MD [address] [place] [address] PCP - General Family Medicine 02/19/17 documented as of this encounter
--- OUTSIDE RECORDS SUMMARY | 2025-03-15 13:56 | XMS_ITS | Clinical Summary ---
Author Organization [employer] Address [address] [facility] 7[address] [place] [address] Care Team Providers Care Structures Mechanic Name Role Phone Esme Flores MD Primary Care Provider + Allergies Active Allergy Reactions Criticality Noted Date Comments Egg-Derived Products 10/15/2024 Other Reaction(s): Not available Medications glucose blood (FREESTYLE LITE) test strip apply 1 by to skin route once daily 020 Active zoster vaccine, live, (Zostavax) 89021 UNT/0.65ML injection inject 0.65 milliliter by subcutaneous [...] 023 Active albuterol 108 (90 Base) MCG/ACT inhalerIndicati ons:COPD with acute exacerbation (CMS/HCC) Inhale 2 puffs every 4 (four) hours if needed for wheezing. 18 g 3 024 Active simvastatin (Zocor) 20 MG tablet TAKE 1 TABLET BY MOUTH EVERY EVENING 90 tablet 3 025 Active montelukast (Singulair) 10 MG tablet TAKE 1 TABLET BY MOUTH EVERY EVENING 90 tablet 3 025 Active Aspirin Low Dose 81 MG EC tabletIndicatio ns:Type 2 diabetes mellitus with diabetic polyneuropathy, with long-term current use of insulin (CMS/HCC) TAKE 1 TABLET BY MOUTH EVERY MORNING 90 tablet 3 025 Active hydroCHLOROthia zide (HYDRODiuril) 25 MG tablet TAKE 1 TABLET BY MOUTH EVERY MORNING 90 tablet 3 025 Active hydrocortisone 2.5 % cream Apply topically 2 times daily. 28 g 1 025 Active ammonium lactate (Amlactin) 12 % cream Apply topically if needed for dry skin. 385 g 025 2025 Active cyclobenzaprine (Flexeril) 10 MG tablet TAKE 1 TABLET BY MOUTH AT BEDTIME 30 tablet 5 025 Active cetirizine (ZyrTEC) 10 MG tabletIndicatio ns:Chronic rhinitis TAKE 1 TABLET BY MOUTH EVERY DAY NEEDED 90 tablet 1 025 Active omeprazole (PriLOSEC) [address] capsuleIndicati ons:Gastroesoph ageal reflux disease, unspecified whether esophagitis present TAKE 1 CAPSULE BY MOUTH EVERY MORNING 30 TO 60 MINUTES BEFORE BREAKFAST 90 capsule 1 025 Active divalproex (Depakote) 250 MG EC tabletIndicatio ns:Polyneuropat hy, unspecified TAKE 1 TABLET BY MOUTH TWICE DAILY TWICE DAILY IN THE MORNING AND IN THE EVENING 60 tablet 6 025 Active lisinopril 40 MG tabletIndicatio ns:Primary hypertension TAKE 1 TABLET BY MOUTH EVERY MORNING 90 tablet 3 025 Active traZODone (Desyrel) 50 MG tabletIndicatio ns:Insomnia, unspecified TAKE 1 TABLET BY MOUTH AT BEDTIME NEEDED for SLEEP 30 tablet 6 025 Active Driminate 50 MG tabletIndicatio ns:HTN (hypertension), benign TAKE 1 TABLET BY MOUTH EVERY 12 HOURS NEEDED 30 tablet 5 025 Active amoxicillin (Amoxil) 500 MG capsule Take 1 capsule by mouth every 6 (six) hours during the day. 025 Active docusate sodium (Colace) 100 MG capsuleIndicati ons:Gastroesoph ageal reflux disease, unspecified whether esophagitis present TAKE 1 CAPSULE BY MOUTH TWICE DAILY NEEDED FOR CONSTIPATION 180 capsule 3 025 Active celecoxib (CeleBREX) 100 MG capsule Take 1 capsule (100 mg) by mouth 2 times daily. X 1w then bid prn pain 60 capsule 025 2024 Active docusate sodium (Colace) 100 MG capsuleIndicati ons:Gastroesoph ageal reflux disease, unspecified whether esophagitis present TAKE 1 CAPSULE BY MOUTH TWICE DAILY NEEDED CONSTIPATION 180 capsule 3 024 2024 Discontinued meloxicam (Mobic) 7.5 MG tablet TAKE 1 TABLET BY MOUTH TWICE DAILY 60 tablet 1 025 2024 Discontinued(I neffective) Active Problems Problem Noted Date Diagnosed Date Primary osteoarthritis of both knees 03/15/2025 Screening for colon cancer 10/07/2024 Assessment & Plan (03/15/2025 10:34 AM EDT): Declined colonoscopy and cologuard Preventative health care 10/07/2024 Assessment & Plan (10/07/2024 10:35 AM EDT): Discussed with patient re increase fresh fruit and vegetable intake. Counseled re moderate exercise as tolerated, up to 20min/d Patient feels safe at home. PAP smear N/A due to [facility] Mammogram UTD. 10/2024 Bone density test [...] for breast cancer 10/22/2023 Assessment & Plan (03/15/2025 10:35 AM EDT): Has appt scheduled for 03/22/25 Assessment & Plan (10/22/2023 11:26 AM EDT): - will reschedule mammogram Upper respiratory disease 07/04/2023 Assessment & Plan [...] exercise, life style modifications, diet, referral to satellite specialist. She will hold off on that [...] 3-4 wks once asthma Sx are resolved Asymptomatic menopause 07/18/202303/15 Assessment & Plan (07/18/2023 11:13 AM EST): Order dexa scan Encounters Date Type Department Care Team Description 03/15/2025 11:15 AM EDT Office Visit [address] [address] Esme Flores MD Screening for colon cancer (Primary Dx); Type 2 diabetes mellitus with hyperglycemia, without long-term current use of insulin ([facility]); Screening mammogram for breast cancer; Primary osteoarthritis of both knees 03/15/2025 Travel 03/14/2025 Telephone [facility] [address] [place] [phone] Esme Flores MD Chart Prep 03/10/2025 Refill [facility] [address] [place], [place] [phone] Esme Flores MD Gastroesophageal reflux disease, unspecified whether esophagitis present 03/04/2025 Patient Outreach [facility] [address] [place] [address] Esme Flores MD Pre-visit Planning (SDOH screening completed on 09/08/2024) 01/25/2025 Refill [facility] [address] [place] [phone] Esme Flores MD HTN (hypertension), benign 01/18/2025 Telephone [facility] [address] [place] [phone] Esme Flores MD Durable Medical Equipment (DME Request: Shower seat with Back) 01/12/2025 10:00 AM EDT Office Visit [facility] OPTOMETRY [address] [place] [address] Saw, Milagros, OD Diabetes type 2, no ocular involvement ([facility]) (Primary Dx); Combined forms of age-related cataract of both eyes 01/12/2025 Travel 01/09/2025 Refill [facility] [address] [place] [address] Esme Flores MD Insomnia, unspecified 12/22/2024 Telephone [facility] [address] [place] [phone] Esme Flores MD Cologuard 12/16/2024 Refill [facility] [address] [place], [place] [phone] Esme Flores MD Primary hypertension 12/15/2024 Refill [facility] [address] [address] Esme Flores MD Polyneuropathy, unspecified; Primary hypertension from Last 3 Months Immunizations Immunization Administration Dates Next Due Hep A, ped/adol, 2 dose 07/17/2007,10/03/2006 Hep B, Adolescent or Pediatric 10/03/2008,2007,11/05/2006 Influenza High-dose Quadriva lent Preservative Free 08/27/2023 Influenza injectable quadriv alent IIV4 with preservative 04/30/2019,07/02/2017 Influenza injectable quadriv alent preservative free 05/03/2022,04/26/2021,05/11/2020,07/24,05/18/2015 Influenza, High Dose Seasona l, Preservative Free 03/15/2025,04/28/2024 Influenza, IIV3, injectable 04/27/2014 Influenza, Split (incl. [...] 22 03/15/2025 10:27 AM EDT Oxygen Saturation 95% 10/07/2024 9:31 AM EDT Inhaled Oxygen Concentration - - Weight 108 kg (238 lb) 03/15/2025 10:27 AM EDT Height 157.5 cm (5' 2 ) 03/15/2025 10:27 AM EDT Body Mass Index 43.53 03/15/2025 10:27 AM EDT Plan of Treatment Health Maintenance Due Date Last Done Comments CT Colonography 1960 Colonoscopy 1960 Colorectal Cancer Screening 1960 FIT DNA/Cologuard 1960 FIT 1960 FOBT 1960 Sigmoidoscopy 1960 Dental Oral Exam 12/16/2019 06/15/2019, , 10/19/2014, Additional history exists Dental Prophylaxis 09/11/2021 03/13/2021, 1 08/16/2018, 06/03/2018, Additional history exists Dental X-Ray: Bitewings 04/05/2022 04/04/20 21, 03/13/2021, 06/15/2019, Additional history exists Dental X-Ray: Full Mouth 06/16/2022 06/15/2019, 02/05 Diabetes: Urine Protein Screening 12/15/2024 12/16/2023, 08/22/2022, 10/26/2020, Additional history exists Lipid Panel 12/15/2024 12/16/2023, 08/07, 07/27/2020 Mammogram 02/16/2025 02/17/2024, 06/06, 02/05/2021, Additional history exists Influenza Vaccine (#1) 2025 , 04/28/2024, 08/27/2023, Additional history exists Depression Monitoring 03/11/2025 09/08/2024, 025 COVID-19 Vaccine ( season) 2025 09/18/2024, 02/22/2021, 02/01/2021 SDOH Screening 09/08/2025 09/08/2024 Diabetes: Hemoglobin A1C 09/12/2025 025, 09/08/2024, 12/25/2023, Additional history exists Tobacco Screening 01/27/2026 01/27/2025 Alcohol/Substance Use Screening 03/15/2026 03/15/2025 Diabetes: Foot Exam 03/15/2026 03/15/2025, 03/15/2025, 03/15/2025, Additional history exists Eye Exam 01/12/2027 01/12/2025, 07/0 03/2025, 01/12/2025, Additional history exists DTaP/Tdap/Td Vaccines (3 - [...] Pneumococcal Vaccine: 50+ Years Completed 08/27/2023, 08/29/2005 RSV Patients and Patients Aged 60 years or older Completed 09/18/2024 HIB Vaccines Aged Out No longer eligi [...] EDT Primary osteoarthritis of both knees POCT GLUCOSE Routine 03/15/2025 10:29 AM EDT Type 2 diabetes mellitus with hyperglycemia, without long-term current use of insulin (CMS/HCC) POCT GLYCATED HEMOGLOBIN, TOTAL Routine 03/15/2025 10:29 [...] Recently Relevant to Health Maintenance Results * XR Knee 3 Views Right (03/15/2025 12:00 PM EDT) Anatomical Region Laterality Modality Lower Extremities, Knee Right [facility] 03/15/2025 12:0 0 PM EDT Narrative 03/15/2025 1:11 [place] [address] XRay Report Signed Patient: Bella Vance MR#: [id number] : 1960 Acct:[id number] Age/Sex: 65 / F ADM Date: 03/15/25 Loc: HO.HHCX Attending Dr: Esme Flores MD Ordering Physician: Esme Flores MD Date of Service: 03/15/25 Procedure(s): XR knee RT 3V Accession Number(s): [id number] cc: Esme Flores MD Reason for Exam: [...] 03/15/25 1308 DD/ 1200 TD/TT: 03/15/25 1210 Biofuels Technology Manager: Procedure Note Donotuseinterpreter, Image - 03/15/[address] [address] XRay Report Signed Patient: Bella VanceMR#: [id number] : 8Acct:[id number] Age/Sex: 65 / FADM Date: 03/15/25 Loc: HO.HHCX Attending Dr: Esme Flores MD Ordering Physician: Esme Flores MD Date of Service: 03/15/25 Procedure(s): XR knee RT 3V Accession Number(s): [id number] cc: Esme Flores MD Reason for Exam: [...] 03/15/25 1308 DD/ 1200 TD/TT: 03/15/25 1210 Biofuels Technology Manager: us Esme Flores MD IMG XR PROCEDURES Final Result * XR Knee 3 Views Left (03/15/2025 11:56 AM EDT) Anatomical Region Laterality Modality Lower Extremities, Knee Left Radiogra phic Imaging 03/15/2025 11:5 6 AM EDT Narrative 03/15/2025 1:13 [place] [address] XRay Report Signed Patient: Bella Vance MR#: [id number] : 1960 Acct:[id number] Age/Sex: 65 / F ADM Date: 03/15/25 Loc: HO.HHCX Attending Dr: Esme Flores MD Ordering Physician: Esme Flores MD Date of Service: 03/15/25 Procedure(s): XR knee LT 3V Accession Number(s): [id number] cc: Esme Flores MD Reason for Exam: [...] Enrrique Peres MD 03/15/2025 01:10 PM EDT RP Dictated By: Enrrique Peres MD Signed By: <Electronically signed by Enrrique Peres MD in OV> 03/15/25 1310 DD/ 1156 TD/TT: 03/15/25 1210 Biofuels Technology Manager: Procedure Note Donotuseinterpreter, Image - 03/15/[address] [address] XRay Report Signed Patient: Fab Vance#: [id number] : 8Acct:[id number] Age/Sex: 65 / FADM Date: 03/15/25 [facility]: Esme Flores MD Ordering Physician: Esme Flores MD Date of Service: 03/15/25 Procedure(s): XR knee LT 3V Accession Number(s): [id number] cc: Esme Flores MD Reason for Exam: [...] Enrrique Peres MD 03/15/2025 01:10 PM EDT RP Dictated By: Enrrique Peres MD Signed By: <Electronically signed by Enrrique Peres MD in OV> 03/15/25 1310 DD/ 1156 TD/TT: 03/15/25 1210 Biofuels Technology Manager: Esme Flores MD IMG XR PROCEDURES Final Result * POCT Hgb A1c (03/15/2025 10:29 AM EDT) Hemoglobin A1C 5.1 4.0 - 5.7 % QC Media Lot # [id number] Lot# Expiration Date 42 Blood 03/15/2025 10:2 9 AM EDT Esme Flores MD POINT OF CARE TEST ENTER /EDIT ORDERABLES Final Result * POCT Glucose (03/15/2025 10:29 AM EDT) Glucose Blood, POC 124 60 - 200 mg/dL QC Media Lot # [id number] Lot# Expiration Date 72 Blood Capillary blood specimen / Unknown 03/15/2025 10:29 AM EDT Esme Flores MD POINT OF CARE TEST ENTER /EDIT ORDERABLES Final Result * BI Mammogram Screening Tomosynthesis Bilateral (02/17/2024 10:56 AM EDT) Anatomical Region Laterality Modality Breast Bilateral Mammography 02/17/2024 10:5 6 AM EDT Narrative 03/11/2024 3:54 PM EDT [facility] [address] [place] [address] Mammography Report Signed Patient: Bella Vance MR#: [id number] : 1960 Acct:[id number] Age/Sex: 63 / F ADM Date: 02/17/24 Loc: HO.MAMMO Attending Dr: Esme Flores MD Ordering Physician: Esme Flores MD Results: 1Ne gative Date of Service: 02/17/24 Follow Up: 1 Year From Orig inal Mammogram Procedure(s): MM tomosynthesis screening BI Accession Number(s): [id number] cc: Esme Flores MD EXAMINATION: MM SCREENING [...] 03/11/24 1551 DD/ 1056 TD/TT: 02/17/24 1114 Biofuels Technology Manager: Procedure Note Donotuseinterpreter, Image - 03/11/2024 [facility] [address] [place] [address] Mammography Report Signed Patient: Bella VanceMR#: [id number] : 8Acct:[id number] Age/Sex: 63 / FADM Date: 02/17/24 Loc: [facility] Attending Dr: Esme Flores MD Ordering Physician: Esme Flores MDResults: 1Ne gative Date of Service: 02/17/24Follow Up: 1 Year From Orig inal Mammogram Procedure(s): MM tomosynthesis screening BI Accession Number(s): [id number] cc: Esme Flores MD EXAMINATION: MM SCREENING [...] 03/11/24 1551 DD/ 1056 TD/TT: 02/17/24 1114 Biofuels Technology Manager: Esme Flores MD [facility] PROCEDURES Edited Result - Final * Lipid Panel with Reflex to Direct LDL (12/16/2023 12:08 PM EDT) Triglycerides 50 <150 mg/dL [facility] Comment:Desirable Triglyceri de: less than 150 mg/dLBorderline High Triglyceride 150-199 mg/dLHigh Triglyceride: 200-499 mg/dLVery High Triglyceride: greater than or equal to 5OO mg/dL Cholesterol 121 <200 mg/dL [facility] Comment:Desirable Cholestero l: less than 200 mg/dLBorderline High Cholesterol: 200-239 mg/dLHigh Cholesterol: greater than 239 mg/dL LDL Cholesterol Calculated 69 <100 mg/dL [facility] Comment:Desirable LDL: less than 100 mg/dLNear Optimal/Above Optimal LDL: 110- 129 mg/dLBorderline High LDL: 130-159 mg/dLHigh LDL: 160-189 mg/dLVery High LDL: greater than or equal to 190 mg/dL HDL Cholesterol 42 >40 mg/dL [facility] Comment:Desirable HDL: great er than 40 mg/dL Note: This HDL assay may give artificially low results in patients with liver disease. Blood 12/16/2023 12:0 8 PM EDT 12/16/2023 1:30 PM EDT us Esme Flores MD LAB BLOOD ORDERABLES Fin al Result Performing Organization Address [facility] Co de Phone Number [facility] [address] [place] [address] [phone] * Albumin, Random Urine W/Creatinine (12/16/2023 12:08 PM EDT) Creatinine, Urine 177.89 mg/dL [facility] Microalbumin Urine 9.0 mg/L [facility] Microalbum Creatinine Ratio Ur 5.0 <30 ug/mg cr [facility] Comment:Albumin/Creatinine R atio Reference Ranges: Normal: < 30 ug/mg creatinine Microalbuminuria: 30 - 300 ug/mg creatinineClinical Albuminuria: > 300 ug/mg creatinine Urine (Urine, Random) 12/16/2023 12:08 PM EDT 12/16/2023 1:33 PM EDT us Esme Flores MD LAB URINE ORDERABLES Fin al Result Performing Organization Address [facility] Co de Phone Number [facility] [address] [place] [address] [phone] * Hepatitis C Antibody with Reflex to HCV, RNA, Quantitative, Real-Time PCR (08/22/2022 12:20 PM EST) Hepatitis C Antibody NON-REACT HERBERT NON-REACT HERBERT APR [facility] Index 0.10 <1.00 APR [facility] Comment: HCV antibody was non-reactive. There is no laboratory evidence of HCV infection. In most cases, no further action is required. However, if recent HCV exposure is suspected, a test for HCV RNA (test code 07769) is suggested. For additional information please refer to http://CleanEdison.Two Tap/faq/OPI51i4 (This link is being provided for informational/ educational purposes only.) 08/22/2022 12:2 0 PM EST 08/22/2022 12:21 PM EST Narrative [facility] - 08/28/2022 11:02 PM EST FASTING:NO FASTING: NO Esme Flores MD LAB BLOOD ORDERABLES Fin al Result [facility] [address], [place] [address] [employer] [place] [employer] [address] [facility], ([address]) [place] [address] from Last 3 Months or Most Recently Relevant to Health Maintenance Insurance [facility] [employer] Member Subscriber Plan / Payer (Ef fective 2023-Present) Name:Bella Vance Relation to Subscriber:Self Name:Bella Vance Payer ID:Not on file Group ID:[id number] Type:Not on file Address: [address] SK[employer] NURSING OPT[employer] (O D-SNP) [facility] PPO Care Teams Structures Mechanic Relationship Specialty Start Date End Date Esme Flores MD [address] [place] [address] PCP - General Family Medicine 02/19/17
--- OUTSIDE RECORDS SUMMARY | 2025-03-15 13:56 | XMS_ITS | Encounter Summary ---
Author Organization [employer] Address [address] [place] [address] Care Team Providers Care Pipe Finishing Supervisor Name Role Phone Esme Flores MD Primary Care Provider + Reason for Visit * Reason Onset Date Comments Chart Prep 03/14/2025 Encounter Details Date Type Department Care Team ([facility] Contact Info) Description 03/14/2025 Telephone [facility] [address] [place] [address] Esme Flores MD [address] [place] [address] Chart Prep Social History Tobacco Use Types Packs/Day Years [...] encounter Miscellaneous Notes * Telephone Encounter - Govind Smith [place] - 03/14/2025 9:28 AM EDT Chart Prep Labs: done Images: not applicable Referrals: complete Vaccines due: Flu Screenings: colonoscopy, mammogram, and foot exam Overdue care gaps: A1c, Glucose, SBIRT, PHQ-9, and BRANDON-7 documented in this encounter Plan of Treatment Not on file documented as of this encounter Visit Diagnoses Not on filedocumented in this encounter Additional Health Concerns Assessment Noted Time PHQ-9 Depression Total Score: 12 025 10:31 AM EST documented as of this encounter Care Teams Pipe Finishing Supervisor Relationship Specialty Start Date End Date Esme Flores MD [address] [place] [phone] PCP - General Family Medicine 02/19/17 documented as of this encounter
--- OUTSIDE RECORDS SUMMARY | 2025-03-15 13:56 | XMS_ITS | Encounter Summary ---
Author Organization [email or web address] Address [address] [facility] 7t [place] [address] Care Team Providers Care Juvenile Corrections Officer Name Role Phone Esme Flores MD Primary Care Provider + Reason for Visit * Reason Comments Med Refill Encounter Details Date Type Department Care Team ([facility] st Contact Info) Description 07/23/[address] [facility] [address] [place] [address] Jose Alejandro Maurer DDS [address] [place] [address] Pain (Primary Dx) Social History Tobacco Use [...] pain documented in this encounter Care Teams Juvenile Corrections Officer Relationship Specialty Start Date End Date Esme Flores MD [address] [place] [phone] PCP - General Family Medicine 02/19/17 documented as of this encounter
--- OUTSIDE RECORDS SUMMARY | 2025-03-15 13:56 | XMS_ITS | Encounter Summary ---
Author Organization [employer] Address [address] [facility] [address] [place] [address] Care Team Providers Care Clinical Massage Therapist Name Role Phone Esme Flores MD Primary Care Provider + Reason for Visit * Reason Onset Date Comments Appointment Request 11/24/2024 Encounter Details Date Type Department Care Team ([facility] Contact Info) Description 11/24/2024 Telephone [facility] [address] [place], [place] [phone] Esme Flores MD [address] [place] [address] Appointment Request Social History Tobacco Use Types [...] encounter Miscellaneous Notes * Telephone Encounter - Timmy Paredes - 11/24/2024 3:04 PM EDT Tc from pt requesting call back to schedule next cortisone shot with Dr. Valencia. Please contact pt at [phone]. documented in this encounter Plan of Treatment Not on file documented as of this encounter Visit Diagnoses Not on filedocumented in this encounter Additional Health Concerns Assessment Noted Time PHQ-9 Depression Total Score: 12 025 10:31 AM EST documented as of this encounter Care Teams Clinical Massage Therapist Relationship Specialty Start Date End Date Esme Flores MD [address] [place] [phone] PCP - General Family Medicine 02/19/17 documented as of this encounter
--- OUTSIDE RECORDS SUMMARY | 2025-03-15 13:56 | XMS_ITS | Encounter Summary ---
Author Organization [employer] Address [address] [facility] [address] [place] [address] Care Team Providers Care Sld Inclusion Teacher Name Role Phone Esme Flores MD Primary Care Provider + Reason for Visit * Reason Comments Med Refill Encounter Details Date Type Department Care Team ([facility] Contact Info) Description 03/10/2025 Refill [facility] [address] [place], [place] [phone] Esme Flores MD [address] [place] [address] Gastroesophageal reflux disease, unspecified whether esophagitis present [...] documented as of this encounter Care Teams Sld Inclusion Teacher Relationship Specialty Start Date End Date Esme Flores MD [address] [place] [phone] PCP - General Family Medicine 02/19/17 documented as of this encounter
--- OUTSIDE RECORDS SUMMARY | 2025-03-15 13:56 | XMS_ITS | Encounter Summary ---
Author Organization [employer] Address [address] [facility] [address]t [place] [address] Care Team Providers Care Associate Account Director Name Role Phone Esme Flores MD Primary Care Provider + Encounter Details Date Type Department Care Team (Latest Contact Info) Description 03/13/2021 [facility] Dental, Provider, DDS Social History Tobacco [...] on filedocumented in this encounter Care Teams Associate Account Director Relationship Specialty Start Date End Date Esme Flores MD [address] [place] [address] PCP - General Family Medicine 02/19/17 documented as of this encounter
--- OUTSIDE RECORDS SUMMARY | 2025-03-15 13:56 | XMS_ITS | Encounter Summary ---
Author Organization [employer] Address [address] [place] [address] Care Team Providers Care A Class Lineman Name Role Phone Esme Flores MD Primary Care Provider + Reason for Visit * Reason Onset Date Comments Appointment Request 12/17/2023 Encounter Details Date Type Department Care Team ([facility] Contact Info) Description 12/17/2023 Telephone [facility] [address] [place], [place] [phone] Esme Flores MD [address] [place] [address] Appointment Request Social History Tobacco Use Types [...] AM EDT Tc from pt requesting status eye surgeon * Telephone Encounter - Cecily Delgado - [...] documented as of this encounter Care Teams A Class Lineman Relationship Specialty Start Date End Date Esme Flores MD [address] [place] [phone] PCP - General Family Medicine 02/19/17 documented as of this encounter
--- OUTSIDE RECORDS SUMMARY | 2025-03-15 13:56 | XMS_ITS | Encounter Summary ---
Author Organization [employer] Address [address] 7[address] [place] [address] Care Team Providers Care Rn Clinical Name Role Phone Esme Flores MD Primary Care Provider + Encounter Details Date Type Department Care Team (Late st Contact Info) Description 06/20/2022 Orders Only [facility] [address] [place] [address] Jenny Anderson LPN Social History Tobacco Use [...] on filedocumented in this encounter Care Teams Rn Clinical Relationship Specialty Start Date End Date Esme Flores MD [address] [place] [address] PCP - General Family Medicine 02/19/17 documented as of this encounter
--- OUTSIDE RECORDS SUMMARY | 2025-03-15 13:56 | XMS_ITS | Encounter Summary ---
Author Organization [employer] Address [address] 7t [place] [address] Care Team Providers Care Law Office Receptionist Name Role Phone Esme Flores MD Primary Care Provider + Encounter Details Date Type Department Care Team (Latest Contact Info) Description 03/15/2025 Travel Social History Tobacco Use Types Packs/Day [...] documented as of this encounter Care Teams Law Office Receptionist Relationship Specialty Start Date End Date Esme Flores MD [address] [place] [address] PCP - General Family Medicine 02/19/17 documented as of this encounter
--- OUTSIDE RECORDS SUMMARY | 2025-03-15 13:56 | XMS_ITS | Encounter Summary ---
Author Organization [employer] Address [address] 7[address] [place] [address] Care Team Providers Care Qa Automation Engineer Name Role Phone Esme Flores MD Primary Care Provider + Reason for Visit * Reason Comments Med Refill Encounter Details Date Type Department Care Team ([facility] st Contact Info) Description 05/14/2023 Refill [facility] CH[facility] MED & PEDS [address] [place], [place] [phone] Esme Flores MD 230 [place] [address] Gastroesophageal reflux disease, unspecified whether esophagitis present [...] documented as of this encounter Care Teams Qa Automation Engineer Relationship Specialty Start Date End Date Esme Flores MD [address] [place] [address] PCP - General Family Medicine 02/19/17 documented as of this encounter
== END 2025-03-15 11:29 | disposition home or self-care (01) ==
LOC: HO.HHCX 11:28
PROVIDERS: Visit Provider Internal Medicine
DX: M17.0 Bilateral primary osteoarthritis of knee (principal)
CPT/HCPCS: 73562

== ENCOUNTER → 2025-03-15 11:28 | Outpatient (BNV) | payer OTHER, SELFPAY | PROVIDERS: Visit Provider Radiology Diagnostic Radiology | DX: M17.0 Bilateral primary osteoarthritis of knee (principal) | CPT/HCPCS: 73562 ==

== ENCOUNTER 2025-06-21 11:32 | Outpatient (AMB) | payer OTHER, SELFPAY ==
--- NOTE | 2025-06-21 11:34 | MHC.OFFVIS ---
Vital Signs 06/21/25 11:39 Height 5 ft 2 in Weight 250 lb BMI 45.7 Intake Visit Reasons: Newprob-B/L knee OA Intake Note: Bella is a 65 year old female who presents with complaints of progressively worsening bilateral knee pains. She describes her pains as sharp and severe in nature. Her symptoms have gotten worse over the last few years in spite of continued non operative treatments. She has had cortisone injections in the past which gave her minimal relief. She has failed the last 3 months of conservative treatment which has included Tylenol, Celebrex, a home exercise program and physical therapy exercises. At this point her knee pains are interfering with her activities of daily living and her ability to sleep well through the night. She wishes to hold off on total knee replacement surgery if at all possible. Allergies egg (EGG) Allergy (Intermediate, Verified 11/23/24 10:19) Nausea and Vomiting (can have in recipes, just not alone) Medication List - Last Reconciled 06/21/25 by Leonard Monroe MD albuterol sulfate 90 mcg/actuation 2 puffs inhalation Q4-6H PRN aspirin 81 mg PO DAILY celecoxib mg PO cetirizine 10 mg PO DAILY PRN cyclobenzaprine 10 mg PO BEDTIME dimenhydrinate (Driminate) 50 mg PO BID PRN divalproex (Depakote) 250 mg PO BID docusate sodium (Colace) 100 mg PO DAILY PRN hydrochlorothiazide 25 mg PO DAILY lisinopril 40 mg PO QAM montelukast 10 mg PO BEDTIME omeprazole 20 mg PO DAILY simvastatin 20 mg PO BEDTIME trazodone 50 mg PO BEDTIME PRN [facility] Medical History (Updated 06/21/25 @ 12:56 by Leonard Monroe MD) Depression Bipolar disorder Arthritis Urinary, incontinence, stress female NAZ (obstructive sleep apnea) Hypercholesterolemia Vertigo Diabetes HTN (hypertension) Asthma Surgical History Hx of external ear surgery Hx of foot surgery History of total abdominal hysterectomy and bilateral salpingo-oophorectomy Social History Household Members: Family Are you a primary healthcare corporate account director to a significant other at home: No Do you presently have visiting nurse or other home services: Yes ([employer]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) Alcohol intake: current Alcohol intake frequency: does not drink Comment: medicated Patient Tobacco Use Status: Never used Tobacco Physical Exam Vital Signs: BMI result Body Mass Index 45.7 Extrem Other: Bilateral knee examination shows minimal effusions, palpable crepitus with range of motion, pain with range of motion, no instability Results Reviewed Results Reviewed: X-rays of the patient's bilateral knee show moderate to severe joint space narrowing, subchondral sclerosis, osteophyte formation, no acute bony abnormalities Assessment & Plan Assessment & Plan (1) Osteoarthritis of left knee: Code(s): M17.12 - Unilateral primary osteoarthritis, left knee Category: Medical (2) Osteoarthritis of right knee: Code(s): M17.11 - Unilateral primary osteoarthritis, right knee Category: Medical Plan Ms. Vance presents with bilateral knee pains due to osteoarthritis. I had a lengthy discussion with the patient regarding the treatment options. She wishes to hold off on surgery if at all possible. I agree with this plan. I will see if the patient's insurance company will cover a viscosupplementation injection, such as Durolane, for both of her knees. I will see her back once the injections are available. Feel free to call me at any time should questions regarding her orthopedic management arise. I spent 21 minutes in reviewing the patient's records and imaging studies, seeing the patient and documenting in the medical record. Coding Level of Care Code Est Pt Level 3 (02555) Add On Problem Visit Only Diagnoses Osteoarthritis of left knee M17.12 Osteoarthritis of right knee M17.11
[2025-06-21 11:39] VITALS: BMI 45.7
--- OUTSIDE RECORDS SUMMARY | 2025-06-21 15:15 | XMS_ITS | Encounter Summary ---
Author Organization [employer] Address [address] [place] [address] Care Team Providers Care Investigation Specialist Name Role Phone Esme Flores MD Primary Care Provider + Reason for Visit * Reason Comments Med Refill Encounter Details Date Type Department Care Team ([facility] Contact Info) Description 06/06/2025 Refill [facility] [address] [place] [address] Esme Flores MD [address] [place] [address] Chronic rhinitis; Gastroesophageal reflux disease, unspecified whether [...] as of this encounter Visit Diagnoses Diagnosis Chronic rhinitis Gastroesophageal reflux disease, unspecified whether esophagitis present documented in this encounter Additional Health Concerns Assessment Noted Time PHQ-9 Depression Total Score: 12 025 10:31 AM EST documented as of this encounter Care Teams Investigation Specialist Relationship Specialty Start Date End Date Esme Flores MD [address] [place] [address] PCP - General Family Medicine 02/19/17 documented as of this encounter
--- OUTSIDE RECORDS SUMMARY | 2025-06-21 15:15 | XMS_ITS | Encounter Summary ---
Author Organization [employer] Address [address] [place] [address] Care Team Providers Care Advertising Solicitor Name Role Phone Esme Flores MD Primary Care Provider + Encounter Details Date Type Department Care Team ([facility] st Contact Info) Description 03/25/2024 Telephone [facility] [address] [place] [address] Esme Flores MD [address] [place] [address] Social History Tobacco Use Types Packs/Day Years [...] documented as of this encounter Care Teams Advertising Solicitor Relationship Specialty Start Date End Date Esme Flores MD [address] [place] [address] PCP - General Family Medicine 02/19/17 documented as of this encounter
--- OUTSIDE RECORDS SUMMARY | 2025-06-21 15:15 | XMS_ITS | Encounter Summary ---
Author Organization [employer] Address [address] [place] [address] Care Team Providers Care Locket Maker Name Role Phone Esme Flores MD Primary Care Provider + Reason for Visit * Reason Comments Med Refill Encounter Details Date Type Department Care Team ([facility] st Contact Info) Description 05/16/2023 Refill [facility] CH[facility] MED & PEDS [address] [place], [place] [phone] Esme Flores MD [address] [place] [address] Gastroesophageal reflux disease, unspecified whether esophagitis present [...] documented as of this encounter Care Teams Locket Maker Relationship Specialty Start Date End Date Esme Flores MD [address] [place] [address] PCP - General Family Medicine 02/19/17 documented as of this encounter
--- OUTSIDE RECORDS SUMMARY | 2025-06-21 15:15 | XMS_ITS | Encounter Summary ---
Author Organization [employer] Address [address] [facility] 7t [place] [address] Care Team Providers Care Digital Sales Planner Name Role Phone Esme lFores MD Primary Care Provider + Encounter Details [...] on filedocumented in this encounter Care Teams Digital Sales Planner Relationship Specialty Start Date End Date Esme Flores MD [address] [place] [address] PCP - General Family Medicine 02/19/17 documented as of this encounter
--- OUTSIDE RECORDS SUMMARY | 2025-06-21 15:15 | XMS_ITS | Encounter Summary ---
Author Organization 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
--- OUTSIDE RECORDS SUMMARY | 2025-06-21 15:15 | XMS_ITS | Encounter Summary ---
Author Organization [employer] Address [address] [place] [address] Care Team Providers Care Vp Of Marketing Name Role Phone Esme Flores MD Primary Care Provider + Encounter Details Date Type Department Care Team (Late st Contact Info) Description 06/20/2022 Orders Only [facility] [address] [place] [address] Jenny Anderson LPN Social History Tobacco Use [...] on filedocumented in this encounter Care Teams Vp Of Marketing Relationship Specialty Start Date End Date Esme Flores MD [address] [place] [address] PCP - General Family Medicine 02/19/17 documented as of this encounter
--- OUTSIDE RECORDS SUMMARY | 2025-06-21 15:15 | XMS_ITS | Data Portability ---
Author Organization [employer] [facility], [facility] Medical [facility] Address [address] [place] [phone] Care Team Providers Care Marketing Services Coordinator Name Role Phone HIM [facility] Referring Provider Unavailable Referring Provider Assessment No assessment recorded. Plan of Treatment Reminders Order Date Submit Date Provider Last Modified By Organization Details Last Modified Time Details Appointments None recorded. Lab rapid SARS CoV 2 Ag, QL IA, respiratory specimen 2024 025 [facility], [address] [place] [address], [id number] 5 15:54:01 rapid flu (A+B) 2024 025 [facility], [address] [place] [address], [id number] 5 15:54:02 Referral None recorded. Procedures None recorded. Surgeries None recorded. Imaging None recorded. Medication Orders prednisone 20 mg tablet [id number], [address] [place], [address], 5 12:14:34 azithromyci n 500 mg tablet [address][id number], [address] [place], [address], 5 12:14:34 azithromyci n 250 mg tablet 2024 025 [facility], [address] [place], [place], [id number], 5 11:53:44 prednisone 20 mg tablet 2024 025 [facility], [address] [place] [address], [place], [place], [id number], 5 11:53:44 Patient TargetsNo targets recorded. Patient [...] Name and Address Organization Details Recorded Time 80676 egg extract food,medi cation Not available Not available Not available 08/08/2024 17156 15 RxNorm Not Available [employer] - production [...] No t Available Vitals Date Recorded Body temperature Heart rate Oxygen saturation Respiratory rate Systolic And Diastolic Provider Name and Address Organization Details Last Updated DateTime 5 98.2 [degF] 92 /min 100 % 16 /min 121/61 mm[Hg] Not Available [employer] - production 5 12:02:08 Date Recorded Body height Oxygen saturation Heart rate Respiratory rate Body weight Systolic And Diastolic Provider Name and Address Organization Details Last Updated DateTime 4 157.48 cm 97 % 82 /min 16 /min 307233. 08 g 119/80 mm[Hg] Not Available 30 Second [employer] - production 4 12:49:58 Social History None recorded. Functional Status None recorded. Mental Status None recorded. Family History Nothing Reported. Medical History No medical history recorded. Gynecological HistoryNo gynecological history recorded. Obstetrics History GPAL:G 0 P 0 0 0 0 Past Encounters Encounter ID Performer Location Encounter Start Date Encounter Closed Date Diagnosis/Indication Diagnosis SNOMED-CT Code Diagnosis ICD10 Code Diagnosis IMO Codes Diagnosis Note [id number] Gerald Jurado MD Main - [address] [phone] 09/08/2023 12:49:56 09/08/2023 18:54:15 Pain of left shoulder joint [id number] M25.512 This 63-year-ol d female has a history of chronic left shoulder pain which has flared up today with no trauma. I suspect she has osteoarthr itis of the shoulder. I ordered Toradol 30 mg IM and Tylenol 500 mg tid prn pain. She will follow-up with her PCP. The patient agreed with this plan. [id number] Luis Alberto Magdaleno MD Main - [address] [phone] 08/08/2024 12:02:06 08/10/2024 16:59:20 Exacerbation of moderate persistent asthma [id number] J45.41 Patient w/symptoms of asthma exacerbati on. [...] Dinh Member ID Guarantor Name 08/08/2024 1 [facility] - DOS ON OR AFTER 2022 - DUAL ELIGIBLE - CORRECTION OPTIONS AND ONE CARE (MEDICARE REPLACEMENT/ADV ANTAGE - HMO) Bella Zapataley [id number] Bella Pinky Notes Date Note Type Note Provider Name and Address Organization Details Recorded Time 09/08/2023 text/html ROS as noted in the HPI HPI: History of shoulder arthritis. Patient with worsening left shoulder pain without recent injury. Limited ROM. Naproxen not effective. Feels whole arm is in spasm. .................... .................... .................... .................... .................... .................... .................... . CRC Nurse Triage Notes (Kaley Griffiths): Comments: CRC RN DID NOT NEED FURTHER INFO Gerald Jurado MD [address] [place] [address],[address], [place], [phone], [employer] 09/08/2023 12:53:14 08/08/2024 text/html CRC Nurse Triage Notes (Jarod Ramsey - RN): Reason For Request: Patient is reporting flu like symptoms and would like to be checked out. Patient Reports: Lower extremity swelling; History of asthma, increased use of inhaler; COPD; Sputum increase ; Cough Denies: Increased work of breathing/labored with or without fever Unable to speak in full sentences without distress Discoloration of skin -cyanosis Needs to sleep sitting up, can t catch breath Shortness of breath in setting of confusion Shortness of breath with exertion Pain with inspiration Chief Complaints: Common cold symptoms PMH: Hypertension, COPD/Asthma PMH Reviewed at 08/08/2024:43 Allergies Reviewed at 08/08/2024:43 Comments: Diamond Wheel Edger verified the Pt.'s name//address and phone number. [...] S/S started on . Wellness check requested Cargo Surveyor Organization Information for [employer] Business Legal Name: [facility] Address: [address] [place] [address], [place] [address], [employer]: Jhon Brock MD CLIA No.: [id number] Cargo Surveyor POC Test Results from [employer] Rapid COVID antigen (11:58:20) COVID: - Rapid influenza antigen (11:58:20) Flu: - .................... .................... .................... .................... .................... .................... .................... . Cargo Surveyor Note From Jefe Martinez: This 64-year-old female [...] .................... .................... .................... .................... .................... .................... . [facility] Consulted: Jacob Magdaleno .................... .................... .................... .................... .................... .................... .................... . Disposition: Fulfilled Luis Alberto Magdaleno MD [address] [place] [address],[address], [place], [address], [employer] 08/08/2024 14:51:24 OBGyn Episode No OBEpisode recorded.
--- OUTSIDE RECORDS SUMMARY | 2025-06-21 15:15 | XMS_ITS | Encounter Summary ---
Author Organization [employer] Address [address] [facility] 7t [place] [address] Care Team Providers Care Clinical Pharmacy Specialist Name Role Phone Esme Flores MD Primary Care Provider + Encounter Details Date Type Department Care Team (Latest Contact Info) Description 06/15/2019 Abstract [facility] CONVERSIONS Dental, Provider, DDS Social History Tobacco [...] on filedocumented in this encounter Care Teams Clinical Pharmacy Specialist Relationship Specialty Start Date End Date Esme Flores MD [address] [place] [address] PCP - General Family Medicine 02/19/17 documented as of this encounter
--- OUTSIDE RECORDS SUMMARY | 2025-06-21 15:15 | XMS_ITS | Encounter Summary ---
Author Organization [employer] Address [address] [place] [address] Care Team Providers Care Executive Assistant Name Role Phone Esme Flores MD Primary Care Provider + Reason for Visit * Reason Comments Med Refill Encounter Details Date Type Department Care Team ([facility] st Contact Info) Description 05/14/2023 Refill [facility] [address] [place], [place] [phone] Esme Flores MD [address] [place] [address] Gastroesophageal reflux disease, unspecified whether esophagitis present [...] documented as of this encounter Care Teams Executive Assistant Relationship Specialty Start Date End Date Esme Flores MD [address] [place] [address] PCP - General Family Medicine 02/19/17 documented as of this encounter
--- OUTSIDE RECORDS SUMMARY | 2025-06-21 15:15 | XMS_ITS | Encounter Summary ---
Author Organization [employer] Address [address] [place] [address] Care Team Providers Care Electronic Assembler Group Leader Name Role Phone Esme Flores MD Primary Care Provider + Encounter Details Date Type Department Care Team (Late st Contact Info) Description 09/30/2022 Orders Only [facility] CH[facility] MED & PEDS [address] [place], [place] [phone] Catia Jarrell LPN Social History Tobacco Use [...] on filedocumented in this encounter Care Teams Electronic Assembler Group Leader Relationship Specialty Start Date End Date Esme Flores MD [address] [place] [address] PCP - General Family Medicine 02/19/17 documented as of this encounter
--- OUTSIDE RECORDS SUMMARY | 2025-06-21 15:15 | XMS_ITS | Encounter Summary ---
Author Organization [employer] Address [address] [place] [address] Care Team Providers Care Correctional Nurse Name Role Phone Esme Flores MD Primary Care Provider + Reason for Visit * Reason Comments Med Refill Encounter Details Date Type Department Care Team ([facility] st Contact Info) Description 07/07/2023 Refill [facility] MEDICINE [address] [place], [place] [phone] Esme Flores MD [address] [place], [place] [phone] Polyneuropathy, unspecified Social History Tobacco Use Types [...] documented as of this encounter Care Teams Correctional Nurse Relationship Specialty Start Date End Date Esme Flores MD [address] [place] [address] PCP - General Family Medicine 02/19/17 documented as of this encounter
--- OUTSIDE RECORDS SUMMARY | 2025-06-21 15:15 | XMS_ITS | Clinical Summary ---
Author Organization [employer] Address [address] [facility] 7t [place] [address] Care Team Providers Care Claim Administrator Name Role Phone Esme Flores MD Primary Care Provider + Allergies Active Allergy Reactions Criticality Noted Date Comments Egg Protein-Containing Drug Products 10/15/2024 Other Reaction(s): Not available Medications glucose blood (FREESTYLE LITE) test strip apply 1 by to skin route once daily 020 Active zoster vaccine, live, (Zostavax) 88928 UNT/0.65ML injection inject 0.65 milliliter by subcutaneous [...] MCG/ACT inhalerIndicati ons:COPD with acute exacerbation (CMS/HCC) ([facility]) Inhale 2 puffs every 4 (four) hours if needed for wheezing. 18 g 3 01/12/2 024 Active simvastatin (Zocor) 20 MG tablet TAKE 1 TABLET BY MOUTH EVERY EVENING 90 tablet 3 025 Active montelukast (Singulair) 10 MG tablet TAKE 1 TABLET BY MOUTH EVERY EVENING 90 tablet 3 025 Active Aspirin Low Dose 81 MG EC tabletIndicatio ns:Type 2 diabetes mellitus with diabetic polyneuropathy, with long-term current use of insulin (HCC) TAKE 1 TABLET BY MOUTH EVERY MORNING 90 tablet 3 025 Active hydroCHLOROthia zide (HYDRODiuril) 25 MG tablet TAKE 1 TABLET BY MOUTH EVERY MORNING 90 tablet 3 025 Active hydrocortisone 2.5 % cream Apply topically 2 times daily. 28 g 1 Active ammonium lactate (Amlactin) 12 % cream Apply topically if needed for dry skin. 385 g 025 2025 Active divalproex (Depakote) 250 MG EC tabletIndicatio ns:Polyneuropat hy, unspecified TAKE 1 TABLET BY MOUTH TWICE DAILY TWICE DAILY IN THE MORNING AND IN THE EVENING 60 tablet 6 025 Active lisinopril 40 MG tabletIndicatio ns:Primary hypertension TAKE 1 TABLET BY MOUTH EVERY MORNING 90 tablet 3 5 4:00 PM EST 025 Active traZODone (Desyrel) 50 MG tabletIndicatio [...] FOR CONSTIPATION 180 capsule 3 025 Active cyclobenzaprine (Flexeril) 10 MG tablet TAKE 1 TABLET BY MOUTH AT BEDTIME 30 tablet 5 5 4:00 PM EST 025 Active celecoxib (CeleBREX) 100 MG capsule TAKE 1 CAPSULE BY MOUTH TWICE DAILY FOR 7 DAYS THEN TAKE 1 CAPSULE BY MOUTH TWICE DAILY NEEDED FOR PAIN 60 capsule 5 5 4:00 PM EST 025 Active omeprazole (PriLOSEC) [address] capsuleIndicati ons:Gastroesoph ageal reflux disease, unspecified whether esophagitis present TAKE 1 CAPSULE BY MOUTH EVERY MORNING 30 TO 60 MINUTES BEFORE BREAKFAST 90 capsule 1 5 4:00 PM EST 025 Active cetirizine (ZyrTEC) 10 MG tabletIndicatio ns:Chronic rhinitis Take 1 tablet (10 mg) by mouth Once per day. 90 tablet 1 5 4:00 PM EST 025 Active cetirizine (ZyrTEC) 10 MG tabletIndicatio ns:Chronic rhinitis TAKE 1 TABLET BY MOUTH EVERY DAY NEEDED 90 tablet 1 025 2024 Discontinued(R eorder (will not trigger notification to Pharmacy)) omeprazole (PriLOSEC) [address] capsuleIndicati ons:Gastroesoph ageal reflux disease, unspecified whether esophagitis present TAKE 1 CAPSULE BY MOUTH EVERY MORNING 30 TO 60 MINUTES BEFORE BREAKFAST 90 capsule 1 025 2024 Discontinued(R eorder (will not trigger notification to Pharmacy)) Active Problems Problem Noted Date Diagnosed Date Primary osteoarthritis of both knees 03/15/2025 Assessment & Plan (03/15/2025 3:18 PM EDT): Failed PT few years ago, currently walking with a walker and transfers are very limited. Ordered x-rays, advised to come to acupuncture clinic Will refer to steroid injection clinic and follow-up with me in 3 to 4 months Screening for colon cancer 10/07/2024 Assessment & Plan (03/15/2025 10:34 AM EDT): Declined colonoscopy and cologuard Preventative health care 10/07/2024 Assessment & Plan (10/07/2024 10:35 AM EDT): Discussed with patient re increase fresh fruit and vegetable intake. Counseled re moderate exercise as tolerated, up to 20min/d Patient feels safe at home. PAP smear N/A due to YAN Mammogram UTD. 10/2024 Bone density test UTD. [...] exercise, life style modifications, diet, referral to it communications specialist. She will hold off on that [...] use of insulin 11/25/2011 Assessment & Plan (03/15/2025 3:17 PM EDT): She has been off metformin for more than 6 months now, will continue to check A1c every 6 months for the next 2 years. We discussed about low calorie intake, to have increased unfractioned meals and remain hydrated I told her that she may see a peak on hyperglycemia s/p steroid injection, she can consult as needed for that. Follow-up in 6 months Assessment & Plan (10/07/2024 10:33 AM EDT): [...] Date Resolved Date COPD with acute exacerbation ([facility]) 07/18/2023 09/08/2024 Assessment & Plan (07/18/2023 11:13 AM EST): Albuterol addressed today, cont albuterol inhaler q6hr for 3 days at home then PRN Complete PRD Tx Will have flu + PCV 20 in 3-4 wks once asthma Sx are resolved Asymptomatic menopause 07/18/202303/15 Assessment & Plan (07/18/2023 11:13 AM EST): Order dexa scan Encounters Date Type Department Care Team Description 06/06/2025 Refill [facility] [address] [place] [address] Esme Flores MD Gastroesophageal reflux disease, unspecified whether esophagitis present; Chronic rhinitis 06/06/2025 Refill [facility] [address] [place] [address] Esme Flores MD Chronic rhinitis; Gastroesophageal reflux disease, unspecified whether esophagitis present 05/23/2025 Telephone [facility] [address] [place], [place] [phone] Esme Flores MD Durable Medical Equipment (DME: Raised Recliner) 04/07/2025 Refill [facility] [address] [place], [place] [phone] Esme Flores MD 04/06/2025 Refill [facility] [address] [place] [address] Esme Flores MD from Last 3 Months Immunizations Immunization Administration [...] 02/16/2025 02/17/2024, 06/06, 02/05/2021, Additional history exists COVID-19 Vaccine ( season) 2025 09/18/2024, 02/22/2021, 02/01/2021 Depression Monitoring 03/11/2025 09/08/2024, 025 SDOH Screening 09/08/2025 09/08/2024 Diabetes: Hemoglobin A1C [...] Aged 60 years or older Completed 09/18/2024 Influenza Vaccine Completed 03/15/2025, , 08/27/2023, Additional history exists HIB Vaccines Aged Out [...] Name Priority Date/Time Associated Diagnosis Comments POCT GLYCATED HEMOGLOBIN, TOTAL Routine 03/15/2025 10:29 [...] Relevant to Health Maintenance Results * POCT Hgb A1c (03/15/2025 10:29 AM [...] AM EDT Narrative 03/11/2024 3:54 PM EDT [facility]'[address] [place] [address] Mammography Report Signed Patient: Bella Vance MR#: [id number] : 1960 Acct:[id number] Age/Sex: 63 / F ADM Date: 02/17/24 Loc: HO.MAMMO Attending Dr: Esme Flores MD Ordering Physician: Esme Flores MD Results: 1Ne gative Date of Service: 02/17/24 Follow Up: 1 Year From [facility] Mammogram Procedure(s): MM tomosynthesis screening BI Accession Number(s): [id number] cc: Esme Flores MD EXAMINATION: MM SCREENING [...] 03/11/24 1551 DD/ 1056 TD/TT: 02/17/24 1114 Asphalt Paving Supervisor: Procedure Note Donotuseinterpreter, Image - 03/11/2024 [facility]'s [address] [place] [address] Mammography Report Signed Patient: Bella VanceMR#: [id number] : 8Acct:[id number] Age/Sex: 63 / FADM Date: 02/17/24 Loc: NICOLAS Attending Dr: Esme Flores MD Ordering Physician: Esme Flores MDResults: 1Ne gative Date of Service: 02/17/24Follow Up: 1 Year From [facility] Mammogram Procedure(s): MM tomosynthesis screening BI Accession Number(s): [id number] cc: Esme Flores MD EXAMINATION: MM SCREENING [...] 03/11/24 1551 DD/ 1056 TD/TT: 02/17/24 1114 Asphalt Paving Supervisor: us Esme Flores MD IMG BI PROCEDURES Edited Result - Final * Lipid Panel with Reflex to Direct LDL (12/16/2023 12:08 PM EDT) Triglycerides 50 <150 mg/dL [facility] Comment:Desirable Triglyceri de: less than 150 mg/dLBorderline High Triglyceride 150-199 mg/dLHigh Triglyceride: 200-499 mg/dLVery High Triglyceride: greater than or equal to 5OO mg/dL Cholesterol 121 <200 mg/dL [facility] Comment:Desirable Cholestero l: less than 200 mg/dLBorderline High Cholesterol: 200-239 mg/dLHigh Cholesterol: greater than 239 mg/dL LDL Cholesterol Calculated 69 <100 mg/dL [facility] Comment:Desirable LDL: less than 100 mg/dLNear Optimal/Above Optimal LDL: 110- 129 mg/dLBorderline High LDL: 130-159 mg/dLHigh LDL: 160-189 mg/dLVery High LDL: greater than or equal to 190 mg/dL HDL Cholesterol 42 >40 mg/dL [facility] Comment:Desirable HDL: great er than 40 mg/dL Note: This HDL assay may give artificially low results in patients with liver disease. Blood 12/16/2023 12:0 8 PM EDT 12/16/2023 1:30 PM EDT us Esme Flores MD LAB BLOOD ORDERABLES Fin al Result Performing Organization Address [facility] de Phone Number [facility] [address] [place] [phone] * Albumin, Random Urine W/Creatinine (12/16/2023 12:08 PM EDT) Creatinine, Urine 177.89 mg/dL [facility] Microalbumin Urine 9.0 mg/L [facility] Microalbum Creatinine Ratio Ur 5.0 <30 ug/mg cr [facility] Comment:Albumin/Creatinine R atio Reference Ranges: Normal: < 30 ug/mg creatinine Microalbuminuria: 30 - 300 ug/mg creatinineClinical Albuminuria: > 300 ug/mg creatinine Urine (Urine, Random) 12/16/2023 12:08 PM EDT 12/16/2023 1:33 PM EDT Esme Flores MD LAB URINE ORDERABLES Fin al Result Performing Organization Address [facility] de Phone Number [facility] [address] [place] [phone] * Hepatitis C Antibody with Reflex to HCV, RNA, Quantitative, Real-Time PCR (08/22/2022 12:20 PM EST) Hepatitis C Antibody NON-REACT HERBERT NON-REACT HERBERT [facility] [place] [employer] Index 0.10 <1.00 [facility] [place] [employer] Comment: HCV antibody was non-reactive. There is no laboratory evidence of HCV infection. In most cases, no further action is required. However, if recent HCV exposure is suspected, a test for HCV RNA (test code 83514) is suggested. For additional information please refer to http://education.[employer]/faq/UZK16p9 (This link is being provided for informational/ educational purposes only.) 08/22/2022 12:2 0 PM EST 08/22/2022 12:21 PM EST Narrative [facility] - 08/28/2022 11:02 PM EST FASTING:NO FASTING: NO Esme Flores MD LAB BLOOD ORDERABLES Fin al Result [facility] [address] [facility] [place] [address] [facility] [place] [facility] [address] , ([address]) [place] [phone] from Last 3 Months or Most Recently Relevant to Health Maintenance Insurance [facility] Member Subscriber Plan / Payer (Ef fective 2023-Present) Name:Bella Vance Relation to Subscriber:Self Name:Bella Vance Payer ID:Not on file Group ID:[id number] Type:Not on file Address: [address] NURSING HOME OPTIONS (HMO D-SNP) DENTAL-[facility] MEDICAID STAND ADULT [facility] PPO Care Teams Claim Administrator Relationship Specialty Start Date End Date Esme Flores MD [address] [place] [phone] PCP - General Family Medicine 02/19/17
--- OUTSIDE RECORDS SUMMARY | 2025-06-21 15:15 | XMS_ITS | Encounter Summary ---
Author Organization [employer] Address [address] [facility] 7[address] [place] [address] Care Team Providers Care Gore Inserter Name Role Phone Esme Flores MD Primary Care Provider + Reason for Visit * Reason Comments Med Refill Encounter Details Date Type Department Care Team ([facility] st Contact Info) Description 07/23/2022 Refill [facility] [address] [place] [address] Jose Alejandro Maurer DDS [address] [place] [address] Pain (Primary Dx) Social History Tobacco Use [...] pain documented in this encounter Care Teams Gore Inserter Relationship Specialty Start Date End Date Esme Flores MD [address] [place] [phone] PCP - General Family Medicine 02/19/17 documented as of this encounter"
--- OUTSIDE RECORDS SUMMARY | 2025-06-21 15:15 | XMS_ITS | Encounter Summary ---
Author Organization [employer] Address [address] [facility] [address] [place] [address] Care Team Providers Care Window Decorator Name Role Phone Esme Flores MD Primary Care Provider + Reason for Visit * Reason Onset Date Comments Appointment Request 11/24/2024 Encounter Details Date Type Department Care Team ([facility] Contact Info) Description 11/24/2024 Telephone [facility] [address] [place], [place] [phone] Esme Flores MD [address] [place] [address] Appointment Request Social History Tobacco Use Types [...] with Dr. Valencia. Please contact pt at [phone]. documented in this encounter Plan of Treatment Not on file documented as of this encounter Visit Diagnoses Not on filedocumented in this encounter Additional Health Concerns Assessment Noted Time PHQ-9 Depression Total Score: 12 025 10:31 AM EST documented as of this encounter Care Teams Window Decorator Relationship Specialty Start Date End Date Esme Flores MD [address] [place] [phone] PCP - General Family Medicine 02/19/17 documented as of this encounter
--- OUTSIDE RECORDS SUMMARY | 2025-06-21 15:15 | XMS_ITS | Encounter Summary ---
Author Organization [employer] Address [address] [place] [address] Care Team Providers Care [employer] Librarian Name Role Phone Esme Flores MD Primary Care Provider + Reason for Visit * Reason Comments Med Refill Encounter Details Date Type Department Care Team ([facility] Contact Info) Description 04/06/2025 Refill [facility] [address] [place] [address] Esme Flores MD [address] [place] [address] Social History Tobacco Use Types Packs/Day Years [...] documented as of this encounter Care Teams [employer] Librarian Relationship Specialty Start Date End Date Esme Flores MD [address] [place] [phone] PCP - General Family Medicine 02/19/17 documented as of this encounter
== END 2025-06-21 11:50 | disposition home or self-care (01) ==
LOC: HO.HOS 11:32
PROVIDERS: PCP Internal Medicine; Visit Provider Orthopaedic Surgery
DX: M17.0 Bilateral primary osteoarthritis of knee (principal)
CPT/HCPCS: 99213; G2211

== ENCOUNTER → 2025-06-21 11:32 | Outpatient (BNVA) | payer OTHER, SELFPAY | PROVIDERS: PCP Internal Medicine; Visit Provider Orthopaedic Surgery | DX: M17.0 Bilateral primary osteoarthritis of knee (principal) | CPT/HCPCS: 99212 ==